=== PATIENT | male | born 1950 | race Caucasian/White ===

== ENCOUNTER 2019-01-28 05:24 | Emergency (ER) | payer OTHER ==
[2019-01-28] MEDS ORDERED: IPRATROPIUM BROM 0.5MG/2.5ML ONE (05:47)
[2019-01-28] MEDS ORDERED: ALBUTEROL 2.5 MG/3 ML NEB SOL ONE (05:47)
--- NOTE | 2019-01-28 06:37 | ER ---
Nurse's Notes [facility] Name: Job Branch Jr Age: 68 yrs Sex: Male : 1950 Arrival Date: 01/28/2019 Time: 05:26 Bed 20 Private MD: Diagnosis: Acute bronchitis Presentation: 01/28 05:34 Presenting complaint: Patient states: he has been having a worsening cough with bb congestion for the last 2 days he has tried OTC medications with no relief he also has a neb machine with albuterol and he used it last at 0200 but it is not lasting. Transition of care: patient was not received from another setting of care. Onset of symptoms was January 26, 2019. Risk Assessment: Do you want to hurt yourself or someone else? Patient reports no desire to harm self or others. Initial Sepsis Screen: Does the patient meet any 2 criteria? No. Patient's initial sepsis screen is negative. Does the patient have a suspected source of infection? No. Patient's initial sepsis screen is negative. Care prior to arrival: None. 05:34 Method Of Arrival: Ambulatory bb 05:34 Acuity: SOLANGE 3 bb Triage Assessment: 05:28 General: Appears in no apparent distress. uncomfortable, Behavior is calm, cooperative, cc3 appropriate for age, agitated. Historical: - Allergies: 05:36 Tequins; bb - Home Meds: 05:36 Diovan Oral [Active]; bb - PMHx: 05:36 Hypertension; bb - PSHx: 05:36 Hernia repair; Appendectomy; bb - Immunization history:: Adult Immunizations up to date, Flu vaccine is not up to date. - Social history:: Smoking status: Patient/guardian denies using tobacco. - Ebola Screening: : No symptoms or risks identified at this time. Screenin:28 Abuse screen: Denies threats or abuse. Denies injuries from another. Nutritional cc3 screening: No deficits noted. Tuberculosis screening: No symptoms or risk factors identified. Fall Risk Ambulatory Aid- None/Bed Rest/Nurse Assist (0 pts). Gait- Mental Status- Oriented to own ability (0 pts). Assessment: 05:28 Pain: Denies pain. Neuro: Level of Consciousness is awake, alert, obeys commands, cc3 Oriented to person, place, time, situation, Appropriate for age none Cardiovascular: Heart tones S1 S2 present Capillary refill < 3 seconds Patient's skin is warm and dry. Respiratory: Airway via oral airway Respiratory effort is even, unlabored, Respiratory pattern is regular, symmetrical, Breath sounds with wheezes bilaterally. GI: Abdomen is round non-distended, obese. : Parent/caregiver report the patient having. EENT: No signs and/or symptoms were reported regarding the EENT system. Derm: No signs and/or symptoms reported regarding the dermatologic system. 06:24 Reassessment: Patient appears in no apparent distress at this time. Patient and/or cc3 family updated on plan of care and expected duration. Pain level reassessed. Patient is alert, oriented x 3, equal unlabored respirations, skin warm/dry/pink. 06:45 Reassessment: Patient appears in no apparent distress at this time. Patient and/or cc3 family updated on plan of care and expected duration. Pain level reassessed. Patient is alert, oriented x 3, equal unlabored respirations, skin warm/dry/pink. Dr. Khan discharged the patient home with prescriptions given. Patient denies pain at this time. Patient states feeling better. Patient states symptoms have improved. Vital Signs: 05:36 BP 122 / 101; Pulse 84; Resp 20 S; Temp 98(O); Pulse Ox 100% on R/A; Weight 136.53 kg bb (R); Height 5 ft. 11 in. (180.34 cm) (R); Pain 0/10; 06:26 BP 127 / 71; Pulse 88; Resp 20 S; Pulse Ox 95% on R/A; Pain 0/10; cc3 05:36 Body Mass Index 41.98 (136.53 kg, 180.34 cm) ED Course: 03:10 Patient has correct armband on for positive identification. Placed in gown. Bed in low cc3 position. Call light in reach. Side rails up X2. 05:26 Patient arrived in ED. cl3 05:28 Sarah Beth Robb is Primary Nurse. cc3 05:35 Triage completed. bb 05:36 Arm band placed on Patient placed in an exam room, on a stretcher, on pulse oximetry. bb Family accompanied patient. 05:37 Chano Khan MD is Attending Physician. tw4 05:59 CXR XRAY In Process Unspecified. EDMS 06:45 No provider procedures requiring assistance completed. Patient did not have IV access cc3 during this emergency room visit. Administered Medications: 05:50 Drug: DuoNeb (3:1) (2.5 mg - 0.5 mg) 3 ml Route: Nebulizer; cc3 06:30 Follow up: Response: No adverse reaction; Marked relief of symptoms cc3 Outcome: 06:36 Discharge ordered by . krista 06:45 Discharged to home ambulatory, with family. cc3 06:45 Condition: stable 06:45 Discharge instructions given to patient, family, Instructed on discharge instructions, follow up and referral plans. medication usage, Demonstrated understanding of instructions, follow-up care, medications, Prescriptions given X 4. 06:46 Patient left the ED. cc3 Signatures: Dispatcher [employer] EDMS Magalis Stone, RN RN Chano Nichols MD MD tw4 Sarah Beth Robb cc3 Jacob Oscar cl3 Corrections: (The following items were deleted from the chart) 05:37 05:34 Presenting complaint: Patient states: he has been having a worsening cough for bb the last 2 days he has tried OTC medications with no relief he also has a neb machine with albuterol and he used it last at 0200 but it is not lasting bb 06:24 05:28 GI: Abdomen is round non-distended, cc3 cc3 06:33 05:28 Respiratory: Airway via oral airway Respiratory effort is even, unlabored, cc3 Respiratory pattern is regular, symmetrical, cc3
--- NOTE | 2019-01-28 06:38 | EDPHYS ---
Physician Documentation [facility] Name: Job Branch Jr Age: 68 yrs Sex: Male : 1950 Arrival Date: 01/28/2019 Time: 05:26 Bed 20 Private MD: ED Physician Chano Khan HPI: 01/28 05:56 This 68 yrs old Male presents to ER via Ambulatory with complaints of tw4 Possible Bronchitits. 05:56 The patient or guardian reports cough, that is constant. Onset: The symptoms/episode tw4 began/occurred 2 day(s) ago. Severity of symptoms: At their worst the symptoms were moderate, in the emergency department the symptoms are unchanged. Modifying factors: The symptoms are alleviated by nebulizer treatment, OTC cold preparation, the symptoms are aggravated by nothing. The patient has experienced similar episodes in the past, a few times. Historical: - Allergies: 05:36 Tequins; bb - Home Meds: 05:36 Diovan Oral [Active]; bb - PMHx: 05:36 Hypertension; bb - PSHx: 05:36 Hernia repair; Appendectomy; bb - Immunization history:: Adult Immunizations up to date, Flu vaccine is not up to date. - Social history:: Smoking status: Patient/guardian denies using tobacco. - Ebola Screening: : No symptoms or risks identified at this time. ROS: 05:56 Constitutional: Negative for fever, chills, and weight loss, Eyes: Negative for injury, tw4 pain, redness, and discharge. 05:56 Cardiovascular: Negative for chest pain, palpitations, and edema, Abdomen/GI: Negative for abdominal pain, nausea, vomiting, diarrhea, and constipation, Back: Negative for injury and pain, MS/Extremity: Negative for injury and deformity, Skin: Negative for injury, rash, and discoloration, Neuro: Negative for headache, weakness, numbness, tingling, and seizure. 05:56 Respiratory: Positive for cough, shortness of breath, wheezing, Negative for dyspnea on exertion, hemoptysis, orthopnea, pleurisy. Exam: 05:56 Constitutional: This is a well developed, well nourished patient who is awake, alert, tw4 and in no acute distress. Head/Face: Normocephalic, atraumatic. Chest/axilla: Normal chest wall appearance and motion. Nontender with no deformity. No lesions are appreciated. Cardiovascular: Regular rate and rhythm with a normal S1 and S2. No gallops, murmurs, or rubs. Normal PMI, no JVD. No pulse deficits. 05:56 Skin: Warm, dry with normal turgor. Normal color with no rashes, no lesions, and no evidence of cellulitis. MS/ Extremity: Pulses equal, no cyanosis. Neurovascular intact. Full, normal range of motion. Neuro: Awake and alert, GCS 15, oriented to person, place, time, and situation. Cranial nerves II-XII grossly intact. Motor strength 5/5 in all extremities. Sensory grossly intact. Cerebellar exam normal. Normal gait. 05:56 Respiratory: the patient does not display signs of respiratory distress, Respirations: normal, Breath sounds: wheezing: expiratory that is mild, is scattered. Vital Signs: 05:36 BP 122 / 101; Pulse 84; Resp 20 S; Temp 98(O); Pulse Ox 100% on R/A; Weight 136.53 kg bb (R); Height 5 ft. 11 in. (180.34 cm) (R); Pain 0/10; 06:26 BP 127 / 71; Pulse 88; Resp 20 S; Pulse Ox 95% on R/A; Pain 0/10; cc3 05:36 Body Mass Index 41.98 (136.53 kg, 180.34 cm) bb MDM: 05:37 Patient medically screened. 01/28 05:38 Order name: Flu 01/28 05:38 Order name: CXR XRAY Administered Medications: 05:50 Drug: DuoNeb (3:1) (2.5 mg - 0.5 mg) 3 ml Route: Nebulizer; cc3 06:30 Follow up: Response: No adverse reaction; Marked relief of symptoms cc3 Disposition: 01/28/19 06:36 Discharged to Home. Impression: Acute bronchitis. - Condition is Stable. - Discharge Instructions: Acute Bronchitis, Adult. - Prescriptions for Tessalon Perles 100 mg Oral Capsule - take 1 capsule by ORAL route every 8 hours As needed; 15 capsule. Albuterol Sulfate 2.5 mg /3 mL (0.083 %) Inhalation Solution for Nebulization - inhale 1 unit by NEBULIZATION route every 8 hours As needed; 1 box. Zithromax Z- Juan C 250 mg Oral Tablet - take 1 tablet by ORAL route as directed for 5 days Day 1 - take two (2) tablets one time. Day 2, 3, 4 , 5 take one (1) tablet once daily.; 6 tablet. Guaifenesin AC 10- 100 mg/5 mL Oral Liquid - take 10 milliliter by ORAL route every 4 hours As needed; 240 milliliter. - Medication Reconciliation Form, Thank You Letter, Antibiotic Education, Prescription Opioid Use form. - Follow up: Private Physician; When: Upon discharge from the Emergency Department; Reason: Recheck today's complaints, Continuance of care. - Problem is new. - Symptoms have improved. Signatures: Dispatcher [employer] Magalis Perkins RN RN Chano Nichols MD MD tw4 Sarah Beth Robb cc3 Corrections: (The following items were deleted from the chart) 06:46 06:36 01/28/2019 06:36 Discharged to Home. Impression: Acute bronchitis. Condition is cc3 Stable. Forms are Medication Reconciliation Form, Thank You Letter, Antibiotic Education, Prescription Opioid Use. Follow up: Private Physician; When: Upon discharge from the Emergency Department; Reason: Recheck today's complaints, Continuance of care. Problem is new. Symptoms have improved. tw4
[2019-01-28 07:33] VITALS: TEMP 98
[2019-01-28 07:36] VITALS: BP 127/71; O2SAT 95
--- NOTE | 2019-01-28 07:37 | RAD REPORT ---
EXAM DESCRIPTION: Jana Single View01/28/2019 5:59 am CLINICAL HISTORY: cough COMPARISON: 2014 FINDINGS: The lungs appear clear of acute infiltrate. The heart is mildly enlarged IMPRESSION: No acute abnormalities displayed
== END 2019-01-28 06:46 | disposition home or self-care (01) ==
LOC: ER 05:24
DX: J20.9 Acute bronchitis, unspecified (principal); I10 Essential (primary) hypertension; Z88.8 Allergy status to other drugs, medicaments and biological substances
CPT/HCPCS: 71045; 87804; 94640; 99284

== ENCOUNTER 2019-02-04 07:47 | Inpatient (IN) | payer OTHER ==
[2019-02-04] MEDS ORDERED: METHYLPREDNISOLONE 125 MG INJ ONE (08:15)
[2019-02-04] MEDS ORDERED: ALBUTEROL 2.5 MG/3 ML NEB SOL ONE (08:16)
[2019-02-04] MEDS ORDERED: IPRATROPIUM BROM 0.5MG/2.5ML ONE (08:16)
[2019-02-04 09:02] LABS: Absolute Lymphocytes (CBC) 1.5 K/uL (0.7-4.9); Basophils % 0.5 % (0-1.3); Hematocrit 40.1 % (39.6-49.0); Lymphocytes % 17.9 % (15.3-44.8); MPV 10.4 fL (7.6-11.3); RBC Red Blood Cell Count 4.21 M/uL (4.33-5.43)
[2019-02-04 09:03] LABS: Protime INR 1.27
--- NOTE | 2019-02-04 09:05 | RAD REPORT ---
EXAM DESCRIPTION: RAD - Chest Single View - 02/04/2019 8:46 am CLINICAL HISTORY: Cough, dyspnea, recent bronchitis diagnosis COMPARISON: January 28, 2019 TECHNIQUE: AP portable chest image was obtained 0832 hours . FINDINGS: No peripheral mass or consolidation. Interstitial pattern is not significantly different c omparison. Heart size is enlarged but unchanged. No acute vascular engorgement. Acute failure or volu me overload not suspected. No measurable pleural effusion and no pneumothorax. No acute bony abnormal ity seen. No acute aortic findings suspected. IMPRESSION: No acute lung parenchymal process. No significant failure or volume overload. Patient has a baseline interstitial pattern that potentially mask very earliest stages of interstitia l edema or infiltrate. Prominent cardiac silhouette similar to comparison.
[2019-02-04 10:04] LABS: ALT/SGPT 35 U/L (12-78); AST/SGOT 22 U/L (15-37); Albumin 3.5 g/dL (3.4-5.0); Alkaline Phosphatase 65 U/L (45-117); BUN Blood Urea Nitrogen 19 mg/dL (7-18); Bicarbonate 28 mmol/L (21-32); Bilirubin Direct 0.2 mg/dL (0-0.2); Bilirubin Total 0.7 mg/dL (0.2-1.0); Glucose Level 99 mg/dL (74-106); Magnesium 2.2 mg/dL (1.8-2.4); NT PRO-BNP 86 pg/mL (<125); Potassium 3.7 mmol/L (3.5-5.1); Protein, Total 7.4 g/dL (6.4-8.2); Sodium Level 144 mmol/L (136-145); Troponin (Emerg Dept Use Only) < 0.02 ng/mL (0.0-0.045)
--- NOTE | 2019-02-04 10:24 | ER ---
Nurse's Notes [facility] Name: Job Branch Jr Age: 68 yrs Sex: Male : 1950 Arrival Date: 02/04/2019 Time: 07:50 Bed 6 Private MD: Jens Robbins T Diagnosis: Acute bronchitis;Acute respiratory failure with hypoxia Presentation: 02/04 08:02 Presenting complaint: Patient states: "I was here for bronchitis on . The ss medications I was given helped, but now it's back." Pt's only complaint at this time is a hacking cough. Transition of care: patient was not received from another setting of care. Onset of symptoms was February 04, 2019. Risk Assessment: Do you want to hurt yourself or someone else? Patient reports no desire to harm self or others. Initial Sepsis Screen: Does the patient meet any 2 criteria? RR > 20 per min. Does the patient have a suspected source of infection? No. Patient's initial sepsis screen is negative. Care prior to arrival: None. 08:02 Method Of Arrival: Ambulatory ss 08:02 Acuity: SOLANGE 3 ss Historical: - Allergies: 08:00 Tequins; ph - Home Meds: 08:00 Diovan Oral [Active]; ph - PMHx: 08:00 Hypertension; ph - PSHx: 08:00 Hernia repair; Appendectomy; ph - Immunization history:: Adult Immunizations up to date. - Social history:: Smoking status: Patient/guardian denies using tobacco. - Ebola Screening: : No symptoms or risks identified at this time. Screenin:00 Abuse screen: Denies threats or abuse. Denies injuries from another. Nutritional ph screening: No deficits noted. Tuberculosis screening: No symptoms or risk factors identified. 08:28 Fall Risk None identified. ph Assessment: 08:26 General: Appears in no apparent distress. uncomfortable, obese, well groomed, Behavior ph is cooperative, appropriate for age, anxious, Denies fever. Pain: Denies pain. Neuro: Level of Consciousness is awake, alert, obeys commands, Oriented to person, place, time, situation. Cardiovascular: Capillary refill < 3 seconds in bilateral fingers Patient's skin is warm and dry. Respiratory: Reports shortness of breath at rest on exertion cough that is non-productive, persistent Airway is patent Respiratory effort is even, labored, Respiratory pattern is tachypnea Breath sounds are coarse in mediastinum. GI: Patient currently denies abdominal pain, diarrhea, nausea, vomiting. Derm: Skin is intact, Skin is pink, warm \\T\\ dry. Musculoskeletal: Circulation, motion, and sensation intact. Range of motion: intact in all extremities. 08:49 Reassessment: Patient appears in no apparent distress at this time. Patient and/or ph family updated on plan of care and expected duration. Pain level reassessed. Pt reports that SOB has improved "some:" after neb tx, noted to be expectorating mucus and respiratory rate also noted to have decreased, recollect sent to lab, awaiting lab and radiology results, SO at bedside. 10:05 Reassessment: Patient appears in no apparent distress at this time. Patient and/or ph family updated on plan of care and expected duration. Pain level reassessed. Patient is alert, oriented x 3, equal unlabored respirations, skin warm/dry/pink. Spo2 noted to intermittently decrease to 87% while pt resting in bed with eyes closed, improves to approx 95% when pt speak or moves, pt reports no overall improvement in symptoms, ERP notified. 11:00 Reassessment: Patient appears in no apparent distress at this time. No changes from ph previously documented assessment. Patient and/or family updated on plan of care and expected duration. Pain level reassessed. Patient is alert, oriented x 3, equal unlabored respirations, skin warm/dry/pink. 12:30 Reassessment: Patient appears in no apparent distress at this time. Patient and/or ph family updated on plan of care and expected duration. Pain level reassessed. Patient is alert, oriented x 3, equal unlabored respirations, skin warm/dry/pink. Pt resting comfortably, awaiting admit orders and room assignment. 13:30 Reassessment: Patient appears in no apparent distress at this time. No changes from ph previously documented assessment. Patient and/or family updated on plan of care and expected duration. Pain level reassessed. Patient is alert, oriented x 3, equal unlabored respirations, skin warm/dry/pink. 14:45 Reassessment: Patient appears in no apparent distress at this time. Patient and/or ph family updated on plan of care and expected duration. Pain level reassessed. Patient is alert, oriented x 3, equal unlabored respirations, skin warm/dry/pink. Hospitalist at bedside to see pt, awaiting room assignment. Vital Signs: 08:02 BP 124 / 67; Pulse 76; Resp 23; Temp 97.6(O); Pulse Ox 100% on R/A; Weight 136.98 kg; ss Height 5 ft. 11 in. (180.34 cm); Pain 0/10; 09:00 BP 111 / 66; Pulse 71; Resp 22; Pulse Ox 95% on R/A; ph 10:03 BP 109 / 68; Pulse 76; Resp 20; Pulse Ox 97% on R/A; ph 10:47 BP 121 / 65; Pulse 71; Resp 18; Pulse Ox 96% on R/A; ph 11:22 BP 116 / 73; Pulse 68; Resp 18; Pulse Ox 93% on R/A; ph 12:30 BP 118 / 72; Pulse 71; Resp 18; Pulse Ox 95% on 2 lpm NC; ph 13:30 BP 112 / 76; Pulse 81; Resp 20; Pulse Ox 97% on 2 lpm NC; ph 14:48 BP 110 / 69; Pulse 71; Resp 18; Temp 97.6; Pulse Ox 98% on 2 lpm NC; ph 08:02 Body Mass Index 42.12 (136.98 kg, 180.34 cm) ED Course: 07:50 Patient arrived in ED. as 07:50 Jens Robbins MD is Private Physician. as 07:57 [facility] jr8 07:57 Christiano Purcell MD is Attending Physician. jr8 07:59 Masha Stevenson, GRACIE is Primary Nurse. ph 08:00 Arm band placed on Patient placed in an exam room, on a stretcher, on pulse oximetry. ph 08:03 Triage completed. ss 08:20 Initial lab(s) drawn, by me, sent to lab. Inserted saline lock: 20 gauge in right hand, dh3 using aseptic technique. Blood collected. 08:28 Patient has correct armband on for positive identification. Placed in gown. Bed in low ph position. Call light in reach. Side rails up X 1. Pulse ox on. NIBP on. Door closed. Noise minimized. Warm blanket given. Head of bed elevated. 08:35 XRAY Chest (1 view) In Process Unspecified. EDMS 09:47 EKG done, by central office technician. reviewed by Luis SHEFFIELD. at1 10:22 Cem Garcia MD is Hospitalizing Provider. jr8 15:50 No provider procedures requiring assistance completed. Patient admitted, IV remains in ph place. Administered Medications: 08:23 Drug: SOLU-Medrol 125 mg Route: IVP; Site: right hand; ph 08:24 Drug: Albuterol - atroVENT (3:1) (2.5 mg - 0.5 mg) 3 ml Route: Nebulizer; ph Outcome: 10:22 Decision to Hospitalize by Provider. jr8 15:58 Patient left the ED. ph 15:58 Admitted to Med/surg accompanied by tech, family with patient, via wheelchair, with ph oxygen, with chart. 15:58 Condition: good 15:58 Instructed on the need for admit. Signatures: Dispatcher [employer] EDMS Gayle Carrillo Shelby, RN RN Luis Moya PA PA jr8 Margaret Boone, warehouse administrator EKG Tat1 Masha Stevenson RN RN Jag, Beverley 3 Corrections: (The following items were deleted from the chart) 10:47 10:05 Reassessment: Patient appears in no apparent distress at this time. Patient ph and/or family updated on plan of care and expected duration. Pain level reassessed. Patient is alert, oriented x 3, equal unlabored respirations, skin warm/dry/pink. ph
--- NOTE | 2019-02-04 10:25 | EDPHYS ---
Physician Documentation [facility] Name: Job Branch Jr Age: 68 yrs Sex: Male : 1950 Arrival Date: 02/04/2019 Time: 07:50 Bed 6 Private MD: Jens Robbins T ED Physician Christiano Purcell HPI: 02/04 08:56 This 68 yrs old Male presents to ER via Ambulatory with complaints of jr8 Bronchitis. 08:56 The patient has shortness of breath at rest. Onset: The symptoms/episode began/occurred jr8 acutely, 2 day(s) ago. Duration: The symptoms are continuous. The patient's shortness of breath is aggravated by light activity, talking, walking. Associated signs and symptoms: The patient has no apparent associated signs or symptoms. Severity of symptoms: At their worst the symptoms were moderate in the emergency department the symptoms are unchanged. It is unknown whether or not the patient has had similar symptoms in the past. The patient has been recently seen by a physician:. Saw physician about 1 week ago for cough. Diagnosed with bronchitis and was put on zithromax. Stated that he had only mild improvement. Two days ago started to feel much worse . Historical: - Allergies: 08:00 Tequins; ph - Home Meds: 08:00 Diovan Oral [Active]; ph - PMHx: 08:00 Hypertension; ph - PSHx: 08:00 Hernia repair; Appendectomy; ph - Immunization history:: Adult Immunizations up to date. - Social history:: Smoking status: Patient/guardian denies using tobacco. - Ebola Screening: : No symptoms or risks identified at this time. ROS: 08:56 Eyes: Negative for injury, pain, redness, and discharge, ENT: Negative for injury, jr8 pain, and discharge, Neck: Negative for injury, pain, and swelling, Cardiovascular: Negative for chest pain, palpitations, and edema, Abdomen/GI: Negative for abdominal pain, nausea, vomiting, diarrhea, and constipation, Back: Negative for injury and pain, MS/Extremity: Negative for injury and deformity, Skin: Negative for injury, rash, and discoloration, Neuro: Negative for headache, weakness, numbness, tingling, and seizure. 08:56 Respiratory: Positive for cough, dyspnea on exertion, shortness of breath, wheezing. Exam: 08:56 Eyes: Pupils equal round and reactive to light, extra-ocular motions intact. Lids and jr8 lashes normal. Conjunctiva and sclera are non-icteric and not injected. Cornea within normal limits. Periorbital areas with no swelling, redness, or edema. ENT: Nares patent. No nasal discharge, no septal abnormalities noted. Tympanic membranes are normal and external auditory canals are clear. Oropharynx with no redness, swelling, or masses, exudates, or evidence of obstruction, uvula midline. Mucous membranes moist. Neck: Trachea midline, no thyromegaly or masses palpated, and no cervical lymphadenopathy. Supple, full range of motion without nuchal rigidity, or vertebral point tenderness. No Meningismus. Cardiovascular: Regular rate and rhythm with a normal S1 and S2. No gallops, murmurs, or rubs. Normal PMI, no JVD. No pulse deficits. Abdomen/GI: Soft, non-tender, with normal bowel sounds. No distension or tympany. No guarding or rebound. No evidence of tenderness throughout. Back: No spinal tenderness. No costovertebral tenderness. Full range of motion. Skin: Warm, dry with normal turgor. Normal color with no rashes, no lesions, and no evidence of cellulitis. MS/ Extremity: Pulses equal, no cyanosis. Neurovascular intact. Full, normal range of motion. Neuro: Awake and alert, GCS 15, oriented to person, place, time, and situation. Cranial nerves II-XII grossly intact. Motor strength 5/5 in all extremities. Sensory grossly intact. Cerebellar exam normal. Normal gait. 08:56 Respiratory: mild respiratory distress is noted, Respirations: tachypnea, Breath sounds: bronchial sounds, that are mild, are heard diffusely. Vital Signs: 08:02 BP 124 / 67; Pulse 76; Resp 23; Temp 97.6(O); Pulse Ox 100% on R/A; Weight 136.98 kg; ss Height 5 ft. 11 in. (180.34 cm); Pain 0/10; 09:00 BP 111 / 66; Pulse 71; Resp 22; Pulse Ox 95% on R/A; ph 10:03 BP 109 / 68; Pulse 76; Resp 20; Pulse Ox 97% on R/A; ph 10:47 BP 121 / 65; Pulse 71; Resp 18; Pulse Ox 96% on R/A; ph 11:22 BP 116 / 73; Pulse 68; Resp 18; Pulse Ox 93% on R/A; ph 12:30 BP 118 / 72; Pulse 71; Resp 18; Pulse Ox 95% on 2 lpm NC; ph 13:30 BP 112 / 76; Pulse 81; Resp 20; Pulse Ox 97% on 2 lpm NC; ph 14:48 BP 110 / 69; Pulse 71; Resp 18; Temp 97.6; Pulse Ox 98% on 2 lpm NC; ph 08:02 Body Mass Index 42.12 (136.98 kg, 180.34 cm) ss MDM: 07:57 Patient medically screened. [facility] 10:16 Data reviewed: vital signs, nurses notes, lab test result(s), EKG, radiologic studies, jr8 plain films. Data interpreted: Pulse oximetry: on room air is 93 %. Interpretation: normal. Counseling: I had a detailed discussion with the patient and/or guardian regarding: the historical points, exam findings, and any diagnostic results supporting the discharge/admit diagnosis, lab results, radiology results, the need for further work-up and treatment in the hospital. ED course: Although patient has improved. He continues to have dyspnea and lower than expected SPO2 levels. Will admit for obs. 02/04 08:10 Order name: Basic Metabolic Panel; Complete Time: 10:16 02/04 08:10 Order name: CBC with Diff 02/04 08:10 Order name: LFT's; Complete Time: 10:16 02/04 08:10 Order name: Magnesium; Complete Time: 10:16 02/04 08:10 Order name: NT PRO-BNP; Complete Time: 10:16 02/04 08:10 Order name: PT-INR; Complete Time: 09:14 02/04 08:10 Order name: Troponin (emerg Dept Use Only); Complete Time: 10:16 02/04 08:10 Order name: XRAY Chest (1 view); Complete Time: 09:14 02/04 08:10 Order name: EKG; Complete Time: 08:11 02/04 08:10 Order name: Cardiac monitoring; Complete Time: 08:12 02/04 08:10 Order name: EKG - Nurse/Tech; Complete Time: 08:8 02/04 08:10 Order name: IV Saline Lock; Complete Time: 02/04 08:10 Order name: Labs collected and sent; Complete Time: 02/04 08:10 Order name: O2 Per Protocol; Complete Time: 08:02/04 08:10 Order name: O2 Sat Monitoring; Complete Time: : Administered Medications: : Drug: SOLU-Medrol 125 mg Route: IVP; Site: right hand; ph 08:24 Drug: Albuterol - atroVENT (3:1) (2.5 mg - 0.5 mg) 3 ml Route: Nebulizer; ph Disposition: 17:22 Co-signature as Attending Physician, Christiano Purcell MD. rn Disposition: 02/04/19 10:22 Hospitalization ordered by Cem Garcia for Observation. Preliminary diagnosis are Acute bronchitis, Acute respiratory failure with hypoxia. - Bed requested for Telemetry/MedSurg (observation). - Status is Observation. ph - Condition is Fair. - Problem is new. - Symptoms have improved. UTI on Admission? No Signatures: Dispatcher [employer] Disha Daily RN RN dw Christiano Purcell MD MD rn Smirch, Shelby, RN RN Luis Moya PA PA jr8 Masha Stevenson RN RN ph Corrections: (The following items were deleted from the chart) 14:30 10:22 Hospitalization Ordered by Cem Garcia MD for Observation. Preliminary dw diagnosis is Acute bronchitis; Acute respiratory failure with hypoxia. Bed requested for Telemetry/MedSurg (observation). Status is Observation. Condition is Fair. Problem is new. Symptoms have improved. UTI on Admission? No. jr8 15:58 14:30 02/04/2019 10:22 Hospitalization Ordered by Cem Garcia MD for Observation. ph Preliminary diagnosis is Acute bronchitis; Acute respiratory failure with hypoxia. Bed requested for Telemetry/MedSurg (observation). Status is Observation. Condition is Fair. Problem is new. Symptoms have improved. UTI on Admission? No. dw
[2019-02-04] MEDS ORDERED: ONDANSETRON 4 MG/2 ML VIAL IV PRN (14:58)
[2019-02-04] MEDS ORDERED: ACETAMINOPHEN 500 MG TAB PO PRN (14:58)
[2019-02-04] MEDS: NA CHLORIDE 0.9% 1,000 ML IV SCH (15:28)
[2019-02-04] MEDS: ENOXAPARIN 40 MG/0.4 ML SQ SCH (15:35)
[2019-02-04 15:50] VITALS: BMI 42.0
[2019-02-04] MEDS ORDERED: POTASSIUM CL SA 10 MEQ TAB PO ONE (16:00)
[2019-02-04] MEDS: CEFTRIAXONE/SWI 1gm 1 GM/10 ML SYR IVP SCH (16:24)
[2019-02-04] MEDS: METHYLPREDNISOLONE 40 MG INJ IV SCH (16:24)
--- NOTE | 2019-02-04 16:46 | P.HP ---
Certification for Inpatient Patient admitted to: Observation With expected LOS: <2 Midnights Practitioner: I am a practitioner with admitting privileges, knowledge of patient current condition, hospital course, and medical plan of care. Services: Services provided to patient in accordance with Admission requirements found in Title 42 Section 412.3 of the Code of Federal Regulations Patient History Date of Service: 02/04/19 Reason for admission: Cough and shortness of breath History of Present Illness: 5-year-old man with a history of hypertension presented to the ED with a complaint of progressive shortness and nonproductive cough. Patient was in the ED on for similar symptoms. He was diagnosed with acute bronchitis and discharged with Zithromax, albuterol nebulizers and Benzonatate. He stated his symptoms improve slightly but later got worse. He presented to the ED today where patient was noted to be wheezing and tachypneic. He partially improved with breathing treatment given in the ED. Patient noted to be afebrile. No leukocytosis. Chest x-ray demonstrated no acute changes. It did report chronic interstitial changes. Patient is hospitalized for treatment of acute bronchitis which has failed outpatient treatment. Allergies gatifloxacin [From Tequin] Allergy (Intermediate, Verified 02/04/19 15:38) ANXIETY Home Medications: Valsartan [Diovan] 320 mg PO DAILY 09/30/11 - Past Medical/Surgical History Has patient received pneumonia vaccine in the past: Yes Diabetic: No -: HTN -: Acid reflux -: headaches -: anxiety -: depression -: hernia repair -: cyst on tail bone removed -: rt shoulder sx -: appy - Family History Father -: Cancer Notes: skin cancer on face, triple bypass with valve replacement Mother Notes: 94 no health issues aside from alzheimers - Social History Smoking Status: Never smoker Alcohol use: Yes CD- Drugs: No Caffeine use: No Review of Systems Other: General: No fever, no malaise, no unintentional weight loss. Eyes: No eye discharge, CVS: No chest pain, no palpitation, no lightheadedness. GI: No abdominal pain, no nausea no vomit, no constipation, no diarrhea. Genitourinary: No dysuria, no urinary frequency, no incontinence, no hematuria. Musculoskeletal: No joint pains, or joint swelling, no gait instability. Neurology: No headache, no asymmetric, weakness, no problem with swallowing. Except as documented, all other systems reviewed and negative. Physical Examination - Vital Signs Temperature: 97.6 F Blood Pressure: 110/69 Pulse: 71 Respirations: 18 - Physical Exam General: Alert, In no apparent distress, Oriented x3 HEENT: Normocephalic, PERRLA, Mucous membr. moist/pink, Sclerae nonicteric Neck: Supple, JVD not distended Respiratory: Clear to auscultation bilaterally, Normal air movement Cardiovascular: No edema, Regular rate/rhythm, Normal S1 S2 Capillary refill: <2 Seconds Gastrointestinal: Normal bowel sounds, Hypoactive, Soft and benign, Non- distended, No tenderness Musculoskeletal: No swelling, No erythema Integumentary: No rashes Neurological: Normal speech, Normal strength at 5/5 x4 extr - Studies Laboratory Data (last 24 hrs) 02/04/19 09:23: Sodium 144, Potassium 3.7, BUN 19 H, Creatinine 1.17, Glucose 99 , Magnesium 2.2, Total Bilirubin 0.7, AST 22, ALT 35, Alkaline Phosphatase 65 02/04/19 08:45: PT 14.8 H, INR 1.27 02/04/19 08:45: WBC 8.1, Hgb 13.2 L, Hct 40.1, Plt Count 134 L Assessment and Plan - Problems (Diagnosis) (1) Acute bronchiolitis due to other infectious organisms Current Visit: Yes Status: Acute (2) Essential hypertension Current Visit: Yes Status: Chronic (3) GERD (gastroesophageal reflux disease) Current Visit: Yes Status: Chronic - Plan Place patient under observation Start IV Rocephin and IV doxycycline. Noted his symptoms did not respond to oral Zithromax. IV Solu-Medrol Scheduled bronchodilators Oxygen as needed Continue home dose PPI Continue home antihypertensives. - Advance Directives Does patient have a Living Will: No Does patient have a Durable POA for Healthcare: No
[2019-02-04] MEDS ORDERED: INFLUENZA VACCINE (for 3y+) 0.5 ML DOSE IMVAC ONE (17:00)
[2019-02-04 18:57] LABS: Urine Appearance CLOUDY; Urine Bilirubin NEGATIVE (NEG); Urine Blood NEGATIVE (NEG); Urine Color YELLOW; Urine Glucose NEGATIVE (NEG); Urine Protein NEGATIVE (NEG); Urine Specific Gravity >=1.030 (1.005-1.030); Urine Urobilinogen 0.2 mg/dL (0.2-1.0); Urine pH 5.5 (5.0-7.0)
[2019-02-04 19:11] LABS: Urine Microscopic Reflex ORDER UMIC
[2019-02-04] MEDS: IPRATROPIUM BROM 0.5MG/2.5ML NEB SCH (20:00)
[2019-02-04] MEDS ORDERED: ALBUTEROL 2.5 MG/3 ML NEB SOL NEB SCH (20:00)
[2019-02-04] MEDS: ALBUTEROL 2.5 MG/3 ML NEB SOL NEB SCH (20:00)
[2019-02-04] MEDS: DOXYCYCLINE 100 MG in NA CHLORIDE 0.9% 100 ML IVPB SCH (20:07)
[2019-02-04 20:47] LABS: Urine Amorphous Sediment 3+ /HPF (NONE SEEN); Urine Bacteria <20 /HPF (NONE SEEN); Urine Culture Reflex Order NOT NEEDED; Urine Mucus 3+ /HPF (NONE SEEN); Urine RBC <5 /HPF (NONE SEEN)
[2019-02-04] MEDS: BENZONATATE 100 MG CAP PO PRN (22:08)
--- NOTE | 2019-02-04 22:57 | EKG ---
Test Date: 2019-02-04 Test Time: 08:28:22 Watch Engineer: JHONY MEASUREMENT RESULTS: Intervals: Rate: 71 VA: 168 QRSD: 92 QT: 406 QTc: 441 [place]: P: 38 VA: 168 QRS: 31 T: 39 INTERPRETIVE STATEMENTS: Normal sinus rhythm Normal ECG Compared to ECG 02/05/2015 09:32:21 Sinus bradycardia no longer present Electronically Signed On 02-04-19 22:55:42 [employer]BBLER SOLE by Raul Russell
[2019-02-05] MEDS: METHYLPREDNISOLONE 40 MG INJ IV SCH ×3 (00:31→16:24)
[2019-02-05] MEDS: IPRATROPIUM BROM 0.5MG/2.5ML NEB SCH ×2 (01:25→08:10)
[2019-02-05] MEDS: ALBUTEROL 2.5 MG/3 ML NEB SOL NEB SCH ×2 (01:25→08:10)
[2019-02-05] MEDS: PANTOPRAZOLE 40MG TABLET PO SCH ×3 (01:43→16:24)
[2019-02-05 05:57] LABS: Absolute Lymphocytes (CBC) 0.4 K/uL (0.7-4.9); Basophils % 0.2 % (0-1.3); Hematocrit 36.8 % (39.6-49.0); Lymphocytes % 3.6 % (15.3-44.8)
[2019-02-05 06:02] LABS: Magnesium 2.2 mg/dL (1.8-2.4); Phosphorus 2.7 mg/dL (2.5-4.9)
[2019-02-05] MEDS: NA CHLORIDE 0.9% 1,000 ML IV SCH ×2 (07:12→17:40)
[2019-02-05] MEDS: BENZONATATE 100 MG CAP PO PRN ×3 (08:20→21:26)
[2019-02-05] MEDS: CEFTRIAXONE/SWI 1gm 1 GM/10 ML SYR IVP SCH (08:20)
[2019-02-05] MEDS: ENOXAPARIN 40 MG/0.4 ML SQ SCH (08:21)
[2019-02-05] MEDS: DOXYCYCLINE 100 MG in NA CHLORIDE 0.9% 100 ML IVPB SCH (08:21)
[2019-02-05 09:28] LABS: Blood Morphology Comment NOT SEEN (NOT SEEN); Platelet Estimate ADEQ; Urine White Blood Cell Casts OK
[2019-02-05] MEDS ORDERED: IPRATROPIUM BROM 0.5MG/2.5ML NEB PRN (10:33)
[2019-02-05] MEDS ORDERED: ALBUTEROL 2.5 MG/3 ML NEB SOL NEB PRN (10:33)
[2019-02-05] MEDS ORDERED: CETIRIZINE HCL 5 MG TABLET PO PRN (16:57)
--- NOTE | 2019-02-05 17:03 | P.PN ---
Subjective Date of Service: 02/05/19 Chief Complaint: Cough and shortness of breath Patient reports spells of coughing, shortness of breath and sensation of throat closing up last night when he was getting breathing treatment. He has been afebrile. Reports nonproductive cough persist. He has not been wheezing. Physical Examination - Vital Signs Temperature: 98.1 F Blood Pressure: 112/55 Pulse: 84 Respirations: 20 Pulse Ox (%): 95 - Physical Exam General: Alert, In no apparent distress, Oriented x3 HEENT: Mucous membr. moist/pink Neck: Supple, JVD not distended, Other (No pharyngeal erythema or exudate) Respiratory: Clear to auscultation bilaterally, Normal air movement Cardiovascular: No edema, Regular rate/rhythm, Normal S1 S2 Gastrointestinal: Normal bowel sounds, Soft and benign, No tenderness Musculoskeletal: No swelling Integumentary: No rashes Neurological: Normal speech, Normal strength at 5/5 x4 extr - Studies Laboratory Data (last 24 hrs) 02/04/19 08:45: WBC 8.1, Hgb 13.2 L, Hct 40.1, Plt Count 134 L Assessment And Plan - Current Problems (Diagnosis) (1) Acute bronchiolitis due to other infectious organisms Current Visit: Yes Status: Acute (2) Essential hypertension Current Visit: Yes Status: Chronic (3) GERD (gastroesophageal reflux disease) Current Visit: Yes Status: Chronic - Plan Place patient under observation Continue IV Rocephin. Discontinue IV doxycycline(patient reports burning with the administration). IV Solu-Medrol Bronchodilators p.r.n. Start antihistamine-cetirizine Oxygen as needed Protonix Continue home dose antihypertensives.
[2019-02-06] MEDS: METHYLPREDNISOLONE 40 MG INJ IV SCH ×2 (00:18→10:20)
[2019-02-06] MEDS: NA CHLORIDE 0.9% 1,000 ML IV SCH ×3 (00:18→20:20)
[2019-02-06] MEDS: BENZONATATE 100 MG CAP PO PRN ×3 (03:36→23:03)
[2019-02-06 06:05] LABS: Absolute Lymphocytes (CBC) 0.5 K/uL (0.7-4.9); Basophils % 0.1 % (0-1.3); Hematocrit 36.8 % (39.6-49.0); Lymphocytes % 3.4 % (15.3-44.8); MPV 11.1 fL (7.6-11.3); RBC Red Blood Cell Count 3.87 M/uL (4.33-5.43)
[2019-02-06 06:18] LABS: Potassium 4.3 mmol/L (3.5-5.1)
[2019-02-06 10:04] LABS: Blood Morphology Comment NOT SEEN (NOT SEEN); Platelet Estimate ADEQ; Urine White Blood Cell Casts OK
[2019-02-06] MEDS: PANTOPRAZOLE 40MG TABLET PO SCH ×2 (10:20→17:20)
[2019-02-06] MEDS: ASPIRIN 81 MG CHEWABLE TABLET PO SCH (10:20)
[2019-02-06] MEDS: CEFTRIAXONE/SWI 1gm 1 GM/10 ML SYR IVP SCH (10:20)
[2019-02-06] MEDS: ENOXAPARIN 40 MG/0.4 ML SQ SCH (10:21)
--- NOTE | 2019-02-06 10:24 | RAD REPORT ---
EXAM DESCRIPTION: Jana Single View02/06/2019 10:16 am CLINICAL HISTORY: Chest pain COMPARISON: February 04, 2019 FINDINGS: The lungs appear clear of acute infiltrate. The heart is normal size IMPRESSION: No acute abnormalities displayed
--- NOTE | 2019-02-06 12:40 | P.PN ---
Subjective Date of Service: 02/06/19 Chief Complaint: Cough and shortness of breath Patient complaining of a sensation of swelling in his throat. He also reports spells of coughing last night. He has been afebrile. Physical Examination - Vital Signs Temperature: 98.4 F Blood Pressure: 123/67 Pulse: 73 Respirations: 20 Pulse Ox (%): 96 - Physical Exam General: Alert, In no apparent distress, Oriented x3 HEENT: Other (Bilateral tonsils enlarged, no pharyngeal exudate.) Neck: Supple, JVD not distended Respiratory: Clear to auscultation bilaterally, Normal air movement Cardiovascular: No edema, Regular rate/rhythm, Normal S1 S2 Gastrointestinal: Normal bowel sounds, Soft and benign, Non-distended, No tenderness Musculoskeletal: No swelling Integumentary: No rashes Neurological: Normal speech Assessment And Plan - Current Problems (Diagnosis) (1) Acute bronchiolitis due to other infectious organisms Current Visit: Yes Status: Acute (2) Essential hypertension Current Visit: Yes Status: Chronic (3) GERD (gastroesophageal reflux disease) Current Visit: Yes Status: Chronic - Plan Continue IV Rocephin. Discontinue IV Solu-Medrol. Start oral prednisone 20 mg daily. Bronchodilators p.r.n. Continue cetirizine Oxygen as needed Protonix Continue home dose antihypertensives.
[2019-02-07] MEDS: NA CHLORIDE 0.9% 1,000 ML IV SCH (03:01)
[2019-02-07] MEDS: PANTOPRAZOLE 40MG TABLET PO SCH (07:41)
[2019-02-07] MEDS: ASPIRIN 81 MG CHEWABLE TABLET PO SCH (07:41)
[2019-02-07] MEDS: ENOXAPARIN 40 MG/0.4 ML SQ SCH (07:41)
[2019-02-07] MEDS: CEFTRIAXONE/SWI 1gm 1 GM/10 ML SYR IVP SCH (07:41)
[2019-02-07 07:51] VITALS: BP 165/82; TEMP 97.3; O2SAT 97
[2019-02-07] MEDS ORDERED: GUAIFENESIN 600 MG SA TAB PO SCH (09:00)
[2019-02-07] MEDS ORDERED: predniSONE 20 MG TAB PO SCH (09:00)
--- NOTE | 2019-02-07 09:28 | P.DS ---
Admission Date: 02/05/19 Discharge Date: 02/07/19 Primary Care Provider: Dr. Robbins Disposition: ROUTINE DISCHARGE Discharge Condition: GOOD Reason for Admission: Cough and shortness of breath Consultations: none Procedures: Follow up CXR: COMPARISON: February 04, 2019 FINDINGS: The lungs appear clear of acute infiltrate. The heart is normal size IMPRESSION: No acute abnormalities displayed Medical Problem list: Acute bronchitis, failed outpatient treatment Hypertension GERD Seasonal allergies Obesity, BMI greater than 40 Brief History of Present Illness: 68-year-old male presented to the emergency room with increased cough , shortness of breath. Patient was recently seen in the emergency room and discharge with antibiotics. Patient continue to have increasing cough and congestion. Patient was admitted for further evaluation and treatment. Hospital Course: Patient presented with acute bronchitis failed outpatient therapy. Patient responded to IV antibiotics and steroids. Chest x-ray showed no pneumonia. Patient has done well. Room-air saturations within normal range. Cough improved. At discharge patient will continue with Augmentin 500 mg 1 pill twice daily for 5 days and prednisone 10 mg daily for 3 more days. Patient will also be provided Mucinex 600 mg twice daily for congestion, albuterol 2 puffs 3 times a day as needed for shortness of breath, and Tessalon Perles 100 mg 1 pill 3 times a day as needed for cough. Encourage oral intake, vitamin-C, and continue with incentive spirometer. Recommend follow up with his PCP in 1 week to follow up this hospitalization. Patient may return to work in 5-7 days. Patient with hypertension. Patient will continue with his medication-valsartan 320 mg daily. Patient with history of GERD. At discharge he may continue with over the counter medication like Pepcid as needed. Patient with history of allergic rhinitis. Patient may continue with over-the- counter medication like Zyrtec 10 mg daily and/or Flonase 1 spray per nostril daily. Vital Signs/Physical Exam: Temp Pulse Resp BP Pulse Ox 97.3 F 60 18 165/82 H 97 02/07/19 07:49 02/07/19 07:49 02/07/19 07:49 02/07/19 07:49 02/07/19 07:49 General: Alert, In no apparent distress, Oriented x3, Cooperative HEENT: Atraumatic Neck: Supple Respiratory: Clear to auscultation bilaterally, Normal air movement Cardiovascular: Normal pulses, Regular rate/rhythm Gastrointestinal: Normal bowel sounds, Soft and benign, Non-distended, No tenderness, No masses, No rebound, No guarding Musculoskeletal: No erythema, No tenderness, No warmth Integumentary: No tenderness/swelling, No erythema, No warmth, No cyanosis Neurological: Normal speech, Normal strength at 5/5 x4 extr, Normal tone, Normal affect Laboratory Data at Discharge: WBC 15.2 K/uL (4.3-10.9) H D 02/06/19 05:29 Hgb 12.7 g/dL (13.6-17.9) L 02/06/19 05:29 Hct 36.8 % (39.6-49.0) L 02/06/19 05:29 Plt Count 136 K/uL (152-406) L 02/06/19 05:29 PT 14.8 SECONDS (9.5-12.5) H 02/04/19 08:45 INR 1.27 02/04/19 08:45 Sodium 142 mmol/L (136-145) 02/06/19 05:29 Potassium 4.3 mmol/L (3.5-5.1) 02/06/19 05:29 BUN 23 mg/dL (7-18) H 02/06/19 05:29 Creatinine 1.17 mg/dL (0.55-1.3) 02/06/19 05:29 Glucose 133 mg/dL (74-106) H 02/06/19 05:29 Phosphorus 2.7 mg/dL (2.5-4.9) 02/05/19 05:24 Magnesium 2.2 mg/dL (1.8-2.4) 02/05/19 05:24 Total Bilirubin 0.7 mg/dL (0.2-1.0) 02/04/19 09:23 AST 22 U/L (15-37) 02/04/19 09:23 ALT 35 U/L (12-78) 02/04/19 09:23 Alkaline Phosphatase 65 U/L (45-117) 02/04/19 09:23 Home Medications: Valsartan [Diovan] 320 mg PO DAILY 09/30/11 Aspirin Chewable [Aspirin Chewable*] 1 tab PO DAILY 02/04/19 Albuterol Sulfate [Proair Hfa] 2 puff IH TID PRN #1 hfa.aer.ad 02/07/19 Amoxicillin/Potassium Clav [Augmentin 500-125 Tablet] 1 each PO BID #10 tablet 02/07/19 Benzonatate [Tessalon Perle*] 100 mg PO TID PRN #15 cap 02/07/19 Guaifenesin [Mucinex] 600 mg PO BID #15 tab.er.12h 02/07/19 predniSONE [Deltasone*] 10 mg PO DAILY #3 tab 02/07/19 New Medications: Albuterol Sulfate [Proair Hfa] 2 puff IH TID PRN #1 hfa.aer.ad PRN Reason: Shortness Of Breath Amoxicillin/Potassium Clav [Augmentin 500-125 Tablet] 1 each PO BID #10 tablet Benzonatate [Tessalon Perle*] 100 mg PO TID PRN #15 cap PRN Reason: Cough Guaifenesin [Mucinex] 600 mg PO BID #15 tab.er.12h predniSONE [Deltasone*] 10 mg PO DAILY #3 tab Patient Discharge Instructions: 1. Recommend follow up with his PCP in 1 week to follow up this hospitalization. 2. Patient presented with acute bronchitis failed outpatient therapy. Patient responded to IV antibiotics and steroids. Chest x-ray showed no pneumonia. Patient has done well. Room-air saturations within normal range. Cough improved. At discharge patient will continue with Augmentin 500 mg 1 pill twice daily for 5 days and prednisone 10 mg daily for 3 more days. Patient will also be provided Mucinex 600 mg twice daily for congestion, albuterol 2 puffs 3 times a day as needed for shortness of breath, and Tessalon Perles 100 mg 1 pill 3 times a day as needed for cough. Encourage oral intake, vitamin-C, and continue with incentive spirometer. Recommend follow up with his PCP in 1 week to follow up this hospitalization. Patient may return to work in 5-7 days. 3. Patient with hypertension. Patient will continue with his medication-valsartan 320 mg daily. 4. Patient with history of GERD. At discharge he may continue with over the counter medication like Pepcid as needed. 5. Patient with history of allergic rhinitis. Patient may continue with [id number] medication like Zyrtec 10 mg daily and/or Flonase 1 spray per nostril daily. Diet: AHA Activity: Ad farnaz Time spent managing pt's care (in minutes): 55
== END 2019-02-07 10:45 | disposition home or self-care (01) | DRG 202 ==
LOC: ER 07:47 → ERHOLD 14:08 → 4TH 15:00 → OBSVTOIN 02-05 17:17
PROVIDERS: ADMIT Internal Medicine; ATTEND Internal Medicine
DX: J20.9 Acute bronchitis, unspecified (principal); Z68.41 Body mass index [BMI] 40.0-44.9, adult; I10 Essential (primary) hypertension; K21.9 Gastro-esophageal reflux disease without esophagitis; J30.2 Other seasonal allergic rhinitis; E66.9 Obesity, unspecified; Z23 Encounter for immunization
CPT/HCPCS: 36415; 71045; 80048; 80076; 81003; 81015; 83735; 83880; 84100; 84484; 85025; 85610; 90471; 93005; 94640; 94760; 96374; 99285; G0378; J0696; J1650; J2920; J2930; J7030; J7512; Q2035

== ENCOUNTER 2020-06-05 13:35 | Emergency (ER) | payer OTHER ==
--- OUTSIDE RECORDS SUMMARY | 2020-06-05 13:38 | XMS REPORT | Continuity of Care Document ---
:1950 Author Organization [facility] t Address [address] [place] [address] Care Team Providers Name Role Phone Pisters Primary Care Physician Only, Test Attending Clinician Unavailable Doctor Unassigned, Name Attending Clinician Unavailable Mandeep Jansen DO Attending Clinician Payers Payer Name Policy Type Policy Number Effective Date Expiration Date S ource Problems Condition Condition Condition Status Onset Resolution Last Treating Co mments Source Name Details Category Date Date Treatment Clinician Date Elevated Elevated Disease Active prostate prostate 5-21 Andre o specific specific 00:00: n antigen antigen 00 (PSA) (PSA) Allergies, Adverse Reactions, Alerts Allergy Allergy Status Severity Reaction(s) Onset Inactive Treating Comm ents Source Name Type Date Date Clinician aspartam FA Active [place] [facility] e 2-10 Clear 00:00: Rodriguez 00 [facility] gatiflox DA Active [place] [facility] acin 2-10 Clear 00:00: Rodriguez 00 [facility] gatiflox DA Active U 2019-03 [facility] acin 03-04 [place] 00:[facility]: [facility] Social History Social Habit Start Date Stop Date Quantity Comments Source Sex Assigned At MD Joe Medications Ordered Filled Start Stop Current Ordering Indication Dosage Frequency Signature Comments Components Source Medication Medication Date Date Medication? Clinician (SIG) Name Name magnesium 2018-0 Yes 400mg Take 400 MD oxide 5-21 mg by Anderso (MAOX) 400 18:21: mouth n mg tablet 27 daily. valsartan 2018-0 Yes 320mg Take 320 MD (DIOVAN) 5-21 mg by Anderso 320 mg 18:21: mouth n tablet 27 daily. clonazePAM 2018-0 Yes .5mg Take 0.5 MD (KlonoPIN) 5-21 mg by Anderso 0.5 mg 18:21: mouth as n tablet 27 needed. ARIPiprazol 2018-0 Yes 2mg Take 2 mg M D e (ABILIFY) 5-21 by mouth. And erso 2 mg tablet 18:21: n 27 hydroCHLORO 2018-0 Yes 25mg Take 25 mg MD thiazide 5-21 by mouth 2 Richard so (HYDRODIURI 18:21: (two) n L) 25 mg 27 times a tablet week MTH. cyanocobala 2017-0 Yes 1000ug Take 1,000 MD min 5-21 mcg by Anderso (VITAMIN 18:21: mouth n B-12) 1000 27 daily. mcg tablet aspirin 81 2017- Yes 81mg Take 81 mg M D mg EC 5-21 by mouth. Anderso tablet 18:21: n 27 Procedures This patient has no known procedures. Encounters Start End Encounter Admission Attending Care Care Encounter Source Date/Time Date/Time Type Type Clinicians Facility Department ID 2020-06-01 2020-06-01 Laboratory Only, [facility] [id number] 09:55:23 10:10:23 Only Test [place] [id number] [place] 4.2.7.2.686 [place] [id number] 2020-06-01 2020-06-01 Orders Doctor NOHEMI [id number] 00:00:00 00:00:00 Only UnassignedNANCY [id number] [place] [facility] 4.2.7.2.686 [id number] 2019-03-16 2019-03-16 Emergency [facility] [id number] 10:55:56 16:02:00 Ivania Garcia [id number] [place] [id number] [place] [id number] Results Test Description Test Time Test Comments Results Result Comments Source BASIC METABOLIC PANEL 2020-04-12 19:18:00 Test Item Value Reference Range Interpretation Comme nts SODIUM (test code = NA) 142 mmol/L 136-145 N POTASSIUM (test code = K) 4.1 mmol/L 3.5-5.1 N CHLORIDE (test code = CL) 107.0 mmol/L 98-107 N CARBON DIOXIDE (test code = 25.3 mmol/L 21-32 N CO2) GLUCOSE (test code = GLU) 103 mg/dL 70-110 N BLOOD UREA NITROGEN (test code 25 mg/dL 7-18 H = BUN) GLOMERULAR FILTRATION RATE 51.5 >60 U nit of measure: (test code = GFR) mL/min/1.7 3 a3Cppniixoa Range:Healthy A dults >90 mL/min/1.73 m2 For Chronic Kidney Disease: Stage II Mi ld Decrease in GFR 60-9 0 Stage III Moderate Decrease in GFR 30-59 Stage IV Severe Decrease in GFR 15-29 Stage V Kidney Failure <15 CREATININE (test code = CREAT) 1.36 mg/dL 0.55-1.30 H CALCIUM (test code = CA) 8.0 mg/dL 8.2-10.1 L PROTHROMBIN [id number] 18:37:00 Test Item Value Reference Range Interpretation Comments PROTHROMBIN TIME 13.1 secs 10.1-12.5 H PATIENT (test code = PTP) INTERNATIONAL NORMAL 1.15 <2.0 RECOMME NDED THERAPEUTIC RATIO (test code = RANGE FOR ORAL INR) ANTICOAGULANTTR EATMENT: CONDI TION INRProphylaxis of venous thrombos is in 2.0 - 3.0 high-risk medic al or surgical patientsTreatme nt of venous thrombos is 2.0 - 3.0Prevention o f embolism 2.0 - 3.0Prevention o f recurrent embol ism, or 3.0 - 4. 5 patients with mechanical pros thetic intravascular v lomas IS PATIENT ON ANTICOAGULANTS ? YLIST ANTICOAGULANT/ANTI PLT MEDICATION : AspirinHas Lab been notified if Patient is on Heparin Drip? NOTHROMBOPLASTIN TIME [id number] 18:37:00 Test Item Value Reference Range Interpretation Comments PTT ACTIVATED (test code = APTT) 31.8 secs 24.9-37.0 N IS PATIENT ON ANTICOAGULANTS ? YLIST ANTICOAGULANT/ANTI PLT MEDICATION : AspirinHas Lab been notified if Patient is on Heparin Drip? NOCBC W/AUTO DIFF 2020-04-12 18:23:00 Test Item Value Reference Range Interpretation Comments WHITE BLOOD CELL (test code = WBC) 5.6 K/mm3 5.7-10.5 L RED BLOOD CELL (test code = RBC) 4.41 M/mm3 4.2-5.4 N HEMOGLOBIN (test code = HGB) 13.6 g/dL 12-16 N HEMATOCRIT (test code = HCT) 42.0 % 37-47 N MEAN CELL VOLUME (test code = MCV) 95 fL 80-98 N MEAN CELL HGB (test code = MCH) 30.8 pg 27-34 N MEAN CELL HGB CONCENTRATION (test 32.4 g/dL 30.8-34.1 N code = MCHC) RED CELL DISTRIBUTION WIDTH (test 13.5 % 11-16 N code = RDW) PLT (test code = PLT) 126 K/mm3 130-400 L MEAN PLATELET VOLUME (test code = 13.0 fL 8.9-12.1 H MPV) NEUTROPHIL % (test code = NT%) 68.1 % 45-70 N LYMPHOCYTE % (test code = LY%) 20.7 % 20-40 N MONOCYTE % (test code = MO%) 8.2 % 3-10 N EOSINOPHIL % (test code = EO%) 2.1 % 1-5 N BASOPHIL % (test code = BA%) 0.5 % 0.0-1.1 N NEUTROPHIL # (test code = NT#) 3.81 K/mm3 2.00-7.50 N LYMPHOCYTE # (test code = LY#) 1.16 K/mm3 1.50-4.00 L MONOCYTE # (test code = MO#) 0.46 K/mm3 0.2-0.8 N EOSINOPHIL # (test code = EO#) 0.12 K/mm3 0.04-0.4 N BASOPHIL # (test code = BA#) 0.03 K/mm3 0.02-0.10 N MANUAL DIFF REQUIRED (test code = NO MANUAL DIFF MDIFF) NUCLEATED RED BLOOD CELL (test 0 % 0-0 N code = NRBC) - XR FLUORO FOR SPINE [id number] 17:00:00 [facility] 1950 Sex: M Patient Name: ALETA SUMNER Unit No: [id number] EXAMS: CPT CODE: [id number] XR FLUORO FOR SPINE INJ [id number] LUMBAR EPIRADICULAR INJECTION REFERRAL PHYSICIAN: None PREOPERATIVE DIAGNOSIS: Lumbar Radiculitis POSTOPERATIVE DIAGNOSIS: 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 FINDINGS: Fairly tight flow seen through both foramen and flow was limited in the right L4-5 lateral recess and centrally across the L4-5 disc where there appears to be focal marked anterior epidural displacement. Provocation with injection was negative. Anestheticresponse was positive with the patient noting complete relief of his right low back and hip pain. Preinjection VAS 4/10. Postinjection VAS 0/10. Steroid response pending follow-up. ESTIMATED BLOOD LOSS: Minimal ANESTHESIA: TIVA COMPLICATIONS: None DETAILS OF PROCEDURE: After obtaining stable vital signs, informed consent and IV access, with no contraindications, the patient was taken to the operating room and placed in a prone position with all extremities padded and appropriate monitors placed. The patient was sterilely prepped and draped over the lumbosacral spine. Using fluoroscopic visualization the insertion sites were marked for paravertebral approaches and using standard technique, a 25 gauge needle was advanced to the base of each pedicle without paresthesias. Isovue-300 contrast 0.2 mL of was injected incrementally with frequent negative aspirations to produce each epidurogram. There were no signs of intravascular or intrathecal uptake. Bupivicaine 0.75% 0.25 mL with lidocaine 4% 0.5 mL and Decadron 8 mg was then incrementally injected with frequent negative aspirations and again there were no signs of intravascular or intrathecal uptake. The needles were removed and the patient was taken to the PACU in good condition. at 1700 Reported and signed by: Melquiades Fuchs M.D. CC: Melquiades Fuchs MD Technologist: VIKI LEVIN RT(R) Transcribed D/ (1699) [facility] [place] NAME: ALETA SUMNER JR [address] [facility] PHYS: Melquiades Finch MD [place], [place] [address] : 1950 AGE: 69 SEX: M LOC: ANY PHONE #: [phone] EXAM DATE: 01/04/2020 STATUS: REG [facility] FAX #: [phone] RAD #: D/C DT PAGE 1 Signed Report Patient Name: ALETA SUMNER JR Unit No: [id number] EXAMS: CPT CODE: [id number] XR FLUORO FOR SPINE INJ [id number] <Continued> Orig Print D/T: S: 01/04/2020 (170) [facility] [place] NAME: ALETA SUMNER JR [address] [facility] PHYS: Melquiades Finch MD [place], [place] [address] : 1950 AGE: 69 SEX: M LOC: ANY PHONE #: [phone] EXAM DATE: 01/04/2020 STATUS: REG [facility] FAX #: [phone] RAD #: D/C DT PAGE 2 Signed Report- MRI L-SPINE W/O [id number] 08:21:00 Patient Name: ALETA SUMNER Unit No: [id number] EXAMS: CPT CODE: [id number] MRI L-SPINE W/O CONT [id number] TECHNIQUE: Multiplanar, multisequence MRI examination performed of the lumbar spine without intravenous contrast material. COMPARISON: None available. FINDINGS: Five lumbar type vertebra are assumed. Alignment: Grade 1 retrolisthesis of L5-S1 Bone Lesion: Small hemangiomas are seen within the L4 and L5 vertebral bodies. Fracture: None present. Paraspinal Soft Tissues: Unremarkable. Conus Medullaris: Termination at L1-L2 level. Morphology is normal. L1/2: No significant abnormality. L2/3: Minimal disc bulge. Mild facet hypertrophy. Mild foraminal stenosis is present bilaterally without significant central canal stenosis. L3/4: Disc desiccation and left asymmetric disc bulge. Facet hypertrophy and ligamentum flavum thickening. There is moderate central canal stenosis as well as moderate left, mild right foraminal stenosis. L4/5: Right asymmetric disc bulge with superimposed right paracentral/foraminal disc protrusion measuring 5 mm. The extrusion impinges the traversing right L5 nerve. Facet hypertrophy and ligamentum flavum thickening contribute to [id number] central canal stenosis. Mild left, moderate right foraminal stenosis. L5/S1: Grade 1 retrolisthesis. Marked disc degeneration with broad disc bulge.Mild bilateral facet hypertrophy. There is mild central canal stenosis as well as moderate bilateral foraminal stenosis. IMPRESSION: Multilevel lumbar spondylosis with a right paracentral disc protrusion at L4-L5 which impinges the right L5 nerve. at 0821 Reported and signed by: Sher Lomas M.D. CC: Ric Gaming MD Technologist: TIFFANIE FORD MRI Transcribed D/ (0821) [facility] ALETA [facility] [address] [facility] [address] PHYS: Ric Ochoa : 1950 AGE: 69 SEX: Richard [place], [place] [address] LOC: Y.MRI PHONE #: [phone] EXAM DATE: 12/07/2019 STATUS: DEP CLI FAX #: [phone] RAD #: D/C DT PAGE 1 Signed Report Patient Name: ALETA SUMNER Unit No: [id number] EXAMS: CPT CODE: [id number] MRI L-SPINE W/O CONT [id number] <Continued> Orig Print D/T: S: 12/08/2019 (0825) [facility] NAME: ALETA SUMNER [address] [facility] PHYS: Ric Ochoa : 1950 AGE: 69 SEX: M [place], [place] [address] LOC: Y.MRI PHONE #: [phone] EXAM DATE: 12/07/2019 STATUS: DEP CLI FAX #: [phone] RAD #: D/C DT PAGE 2 Signed Report
[2020-06-05 19:34] LABS: Absolute Lymphocytes (CBC) 0.3 K/uL (0.7-4.9); Basophils % 0.1 % (0-1.3); Hematocrit 47.6 % (39.6-49.0); Lymphocytes % 5.4 % (15.3-44.8); MPV 11.5 fL (7.6-11.3); RBC Red Blood Cell Count 5.04 M/uL (4.33-5.43)
[2020-06-05] MEDS ORDERED: FENTANYL CITR 100 MCG/2 ML ONE (19:34)
[2020-06-05] MEDS ORDERED: ONDANSETRON 4 MG/2 ML VIAL ONE (19:34)
[2020-06-05] MEDS ORDERED: NA CHLORIDE 0.9% 1,000 ML ONE (19:35)
[2020-06-05 19:43] LABS: Albumin 3.9 g/dL (3.4-5.0); Bilirubin Direct 0.1 mg/dL (0-0.2); Bilirubin Total 0.6 mg/dL (0.2-1.0); Potassium 4.1 mmol/L (3.5-5.1); Protein, Total 8.1 g/dL (6.4-8.2)
--- NOTE | 2020-06-05 20:17 | RAD REPORT ---
EXAM DESCRIPTION: CTAbdomen Pelvis W Contrast - 06/05/2020 8:04 pm CLINICAL HISTORY: Abdominal pain. ABD PAIN COMPARISON: CT ABD PELVIS W CONTRAST dated 02/03/2015; CT ABD PELVIS W CONTRAST dated 12/20/2013 TECHNIQUE: Biphasic CT imaging of the abdomen and pelvis was performed with 100 ml non-ionic IV cont rast. All CT scans are performed using dose optimization technique as appropriate and may include automated exposure control or mA/KV adjustment according to patient size. FINDINGS: The lung bases are clear. The liver, spleen, pancreas, adrenal glands and kidneys are within normal limits. Small benign liver and right renal cysts. No bowel obstruction, free air, free fluid or abscess. Multiple dilated small bowel loops are present with mild wall thickening suggesting a nonspecific enteritis. Appendectomy. No evidence of signific ant lymphadenopathy. Mild to moderate lower lumbar degenerative changes. IMPRESSION: Multiple fluid-filled and mildly dilated small bowel loops are present in the abdomen laboy ggesting ileus or enteritis.
--- NOTE | 2020-06-05 20:20 | ER ---
Nurse's Notes [facility] Name: Job Branch Jr Age: 70 yrs Sex: Male : 1950 Arrival Date: 06/05/2020 Time: 13:40 Bed 19 Private MD: Jens Robbins T Diagnosis: Diarrhea, unspecified;Generalized abdominal pain Presentation: 06/05 13:54 Chief complaint: Patient states: Friday started having abd pain, nausea, and ll1 diarrhea. Believed he has food poisoning. Temp 101./3 at home. Coronavirus screen: Client denies travel out of the [place] in the last 14 days. At this time, the client does not indicate any symptoms associated with coronavirus-19. Ebola Screen: Patient denies travel to an Ebola-affected area in the 21 days before illness onset. Initial Sepsis Screen: Does the patient meet any 2 criteria? No. Patient's initial sepsis screen is negative. Does the patient have a suspected source of infection? Yes: Acute abdominal pain. Risk Assessment: Do you want to hurt yourself or someone else? Patient reports no desire to harm self or others. Onset of symptoms was June 03, 2020. 13:54 Method Of Arrival: Wheelchair ll1 13:54 Acuity: SOLANGE 3 ll1 Historical: - Allergies: 13:57 Tequins; ll1 13:57 tramadol; ll1 - PMHx: 13:57 Hypertension; ll1 - PSHx: 13:57 Hernia repair; Appendectomy; ll1 - Immunization history:: Flu vaccine is up to date. - Social history:: Smoking status: Patient denies any tobacco usage or history of. Screenin:16 Abuse screen: Denies threats or abuse. Nutritional screening: No deficits noted. bw Tuberculosis screening: No symptoms or risk factors identified. Fall Risk None identified. Assessment: 18:16 Pain: Complains of pain in abdomen. Neuro: No deficits noted. Cardiovascular: No bw deficits noted. Respiratory: No deficits noted. GI: Bowel sounds present X 4 quads. Abd is soft and non tender. : No deficits noted. EENT: No deficits noted. Derm: No deficits noted. 19:15 General: Appears in no apparent distress. uncomfortable, Behavior is calm, cooperative, wh appropriate for age. Pain: Complains of pain in left upper quadrant and left lower quadrant Pain currently is 8 out of 10 on a pain scale. Neuro: Level of Consciousness is awake, alert, obeys commands, Oriented to person, place, time, situation, Appropriate for age. Cardiovascular: Capillary refill < 3 seconds. Respiratory: Airway is patent Respiratory effort is even, unlabored, Respiratory pattern is regular, symmetrical. GI: Abdomen is round non-distended, Abd is soft and non tender. : No signs and/or symptoms were reported regarding the genitourinary system. EENT: No signs and/or symptoms were reported regarding the EENT system. Derm: Skin is intact, is healthy with good turgor, Skin is pink, warm \T\ dry. normal. Musculoskeletal: Circulation, motion, and sensation intact. 20:36 Reassessment: Patient appears in no apparent distress at this time. Patient and/or wh family updated on plan of care and expected duration. Pain level reassessed. Patient is alert, oriented x 3, equal unlabored respirations, skin warm/dry/pink. Vital Signs: 13:54 BP 112 / 67; Pulse 87; Resp 17; Temp 98.6; Pulse Ox 96% ; Weight 130.63 kg; Height 5 ll1 ft. 11 in. (180.34 cm); Pain 5/10; 18:16 BP 97 / 69; Pulse 87; Resp 18; Pulse Ox 100% on R/A; Pain 7/10; bw 19:44 BP 107 / 73; Pulse 72; Resp 18; Pulse Ox 96% ; wh 13:54 Body Mass Index 40.17 (130.63 kg, 180.34 cm) ll1 ED Course: 13:40 Patient arrived in ED. mr 13:40 Jens Robbins MD is Private Physician. mr 13:56 Triage completed. ll1 13:57 Arm band placed on. ll1 18:10 Claribel Rodrigez FNP-C [facility]. kb 18:10 Christiano Purcell MD is Attending Physician. kb 18:16 Kareen Cristina, GRACIE is Primary Nurse. bw 18:16 Patient has correct armband on for positive identification. Bed in low position. Call bw light in reach. Side rails up X2. Pulse ox on. NIBP on. Warm blanket given. Pillow given. 18:16 No provider procedures requiring assistance completed. bw 20:04 CT Abd/Pelvis - IV Contrast Only In Process Unspecified. EDMS 20:37 IV discontinued, intact, bleeding controlled, No redness/swelling at site. 21:31 pt discharged prior to notification of band count. Provider unavailable at this time. bb Administered Medications: 19:26 Drug: NS 0.9% 1000 ml Route: IV; Rate: 1000 ml; Site: right antecubital; 20:21 Follow up: Response: No adverse reaction; IV Status: Completed infusion 19:28 Drug: fentaNYL (PF) 25 mcg {Note: RASS 0.} Route: IVP; Site: right antecubital; 20:21 Follow up: Response: No adverse reaction; Pain is decreased; RASS: Alert and Calm (0) 19:30 Drug: Zofran (Ondansetron) 4 mg Route: IVP; Site: right antecubital; 20:21 Follow up: Response: No adverse reaction; Nausea is decreased Outcome: 20:19 Discharge ordered by . kb 20:36 Discharged to home ambulatory, with family. 20:36 Condition: stable 20:36 Discharge instructions given to patient, family, Instructed on discharge instructions, follow up and referral plans. medication usage, POC Demonstrated understanding of instructions, follow-up care, medications, POC Prescriptions given X 1. 20:48 Patient left the ED. Signatures: Dispatcher [employer] EDMS Claribel Rodrigez, ASH COLLECTOR-C ASH COLLECTOR-Darian ReedaBeccaardMagalis, Ben Vega RN, RN RN Monica Oscar RN RN [facility] Kareen Cristina RN RN
--- NOTE | 2020-06-05 20:20 | EDPHYS ---
Physician Documentation [facility] Name: Job Branch Jr Age: 70 yrs Sex: Male : 1950 Arrival Date: 06/05/2020 Time: 13:40 Bed 19 Private MD: Jens Robbins T ED Physician Christiano Purcell HPI: 06/05 19:19 This 70 yrs old Male presents to ER via Wheelchair with complaints of kb Abdominal Pain, Diarrhea. 19:19 The patient presents with abdominal pain in the left upper quadrant, in the left lower kb quadrant. Onset: The symptoms/episode began/occurred 3 day(s) ago. The symptoms do not radiate. Associated signs and symptoms: Pertinent positives: diarrhea. The symptoms are described as crampy. Modifying factors: The symptoms are alleviated by nothing, the symptoms are aggravated by nothing. Severity of pain: At its worst the pain was moderate in the emergency department the pain is unchanged. The patient has not experienced similar symptoms in the past. The patient has not recently seen a physician. Historical: - Allergies: 13:57 Tequins; ll1 13:57 tramadol; ll1 - PMHx: 13:57 Hypertension; ll1 - PSHx: 13:57 Hernia repair; Appendectomy; ll1 - Immunization history:: Flu vaccine is up to date. - Social history:: Smoking status: Patient denies any tobacco usage or history of. ROS: 19:43 Constitutional: Negative for fever, chills, and weight loss, Cardiovascular: Negative kb for chest pain, palpitations, and edema, Respiratory: Negative for shortness of breath, cough, wheezing, and pleuritic chest pain, MS/Extremity: Negative for injury and deformity, Skin: Negative for injury, rash, and discoloration, Neuro: Negative for headache, weakness, numbness, tingling, and seizure. 19:43 Abdomen/GI: Positive for abdominal pain, diarrhea. Exam: 19:43 Constitutional: This is a well developed, well nourished patient who is awake, alert, kb and in no acute distress. Head/Face: Normocephalic, atraumatic. Respiratory: Respirations even and unlabored. No increased work of breathing, no retractions or nasal flaring. Skin: Warm, dry with normal turgor. Normal color. MS/ Extremity: Pulses equal, no cyanosis. Neurovascular intact. Full, normal range of motion. Neuro: Awake and alert, GCS 15, oriented to person, place, time, and situation. Moves all extremities. Normal gait. 19:43 Abdomen/GI: Inspection: abdomen appears normal, Bowel sounds: normal, in all quadrants, Palpation: soft, in all quadrants, mild abdominal tenderness, in the left upper quadrant, moderate abdominal tenderness, in the left lower quadrant. Vital Signs: 13:54 BP 112 / 67; Pulse 87; Resp 17; Temp 98.6; Pulse Ox 96% ; Weight 130.63 kg; Height 5 ll1 ft. 11 in. (180.34 cm); Pain 5/10; 18:16 BP 97 / 69; Pulse 87; Resp 18; Pulse Ox 100% on R/A; Pain 7/10; bw 19:44 BP 107 / 73; Pulse 72; Resp 18; Pulse Ox 96% ; wh 13:54 Body Mass Index 40.17 (130.63 kg, 180.34 cm) ll1 MDM: 18:11 Patient medically screened. kb 19:23 Data reviewed: vital signs, nurses notes. Data interpreted: Pulse oximetry: on room air kb is 100 %. Interpretation: normal. 20:18 Counseling: I had a detailed discussion with the patient and/or guardian regarding: the kb historical points, exam findings, and any diagnostic results supporting the discharge/admit diagnosis, lab results, radiology results, the need for outpatient follow up, a family practitioner, to return to the emergency department if symptoms worsen or persist or if there are any questions or concerns that arise at home. 06/05 18:11 Order name: Basic Metabolic Panel kb 06/05 18:11 Order name: CBC with Diff kb 06/05 18:11 Order name: Hepatic Function; Complete Time: 19:44 kb 06/05 18:11 Order name: Lipase; Complete Time: 19:44 kb 06/05 18:12 Order name: Basic Metabolic Panel; Complete Time: 19:44 EDMS 06/05 18:12 Order name: CBC with Automated Diff EDMS 06/05 18:11 Order name: IV Saline Lock; Complete Time: 19:19 kb 06/05 18:11 Order name: Labs collected and sent; Complete Time: 19:19 kb 06/05 18:11 Order name: CT Abd/Pelvis - IV Contrast Only; Complete Time: 20:18 kb 06/05 20:24 Order name: Manual Differential EDMS Administered Medications: 19:26 Drug: NS 0.9% 1000 ml Route: IV; Rate: 1000 ml; Site: right antecubital; 20:21 Follow up: Response: No adverse reaction; IV Status: Completed infusion 19:28 Drug: fentaNYL (PF) 25 mcg {Note: RASS 0.} Route: IVP; Site: right antecubital; 20:21 Follow up: Response: No adverse reaction; Pain is decreased; RASS: Alert and Calm (0) 19:30 Drug: Zofran (Ondansetron) 4 mg Route: IVP; Site: right antecubital; 20:21 Follow up: Response: No adverse reaction; Nausea is decreased Disposition: 06/06 08:22 Co-signature as Attending Physician, Christiano Purcell MD. rn Disposition: 06/05/20 20:19 Discharged to Home. Impression: Diarrhea, unspecified, Generalized abdominal pain. - Condition is Stable. - Discharge Instructions: Food Choices to Help Relieve Diarrhea, Adult, Diarrhea, Adult, [id number]. - Prescriptions for Bentyl 20 mg Oral Tablet - take 1 tablet by ORAL route every 6 hours As needed; 20 tablet. - Medication Reconciliation Form, Thank You Letter, Antibiotic Education, Prescription Opioid Use form. - Follow up: Emergency Department; When: As needed; Reason: Worsening of condition. Follow up: Private Physician; When: 2 - 3 days; Reason: Recheck today's complaints, Continuance of care, Re-evaluation by your physician. Signatures: Dispatcher [employer] EDMS Claribel Rodrigez, CHIN STRAP CUTTER-C CHIN STRAP CUTTER-CkChristiano Hahn MD MD rn Habalo, Winsy, RN RN wh Lewis, Lynsay RN RN ll1 Corrections: (The following items were deleted from the chart) 06/05 20:48 20:19 06/05/2020 20:19 Discharged to Home. Impression: Diarrhea, unspecified; Generalized abdominal pain. Condition is Stable. Forms are Medication Reconciliation Form, Thank You Letter, Antibiotic Education, Prescription Opioid Use. Follow up: Emergency Department; When: As needed; Reason: Worsening of condition. Follow up: Private Physician; When: 2 - 3 days; Reason: Recheck today's complaints, Continuance of care, Re-evaluation by your physician. kb
[2020-06-05 21:06] LABS: Blood Morphology Comment NOT SEEN (NOT SEEN); Platelet Estimate ADEQ
[2020-06-05 21:17] VITALS: TEMP 98.6
[2020-06-05 21:20] VITALS: BP 107/73; O2SAT 96
== END 2020-06-05 20:48 | disposition home or self-care (01) ==
LOC: ER 13:35
DX: R10.84 Generalized abdominal pain (principal); R19.7 Diarrhea, unspecified; I10 Essential (primary) hypertension
CPT/HCPCS: 85025; 80048; 36415; 80076; 83690; 74177; Q9967; J3010; J7030; J2405; 96361; 96374; 96375; 99284

== ENCOUNTER 2021-01-28 14:29 | Emergency (ER) | payer OTHER ==
--- OUTSIDE RECORDS SUMMARY | 2021-01-28 14:32 | XMS REPORT | Clinical Summary ---
:1950 Author Organization [facility] Address [address] [place] [address] Care Team Providers Name Role Phone Jens Robbins MD Unavailable MD Oli Primary Care Provider Dez Cruz MD Unavailable Allergies Active Allergy Reactions Severity Noted Date Comments Gatifloxacin 07/21/2017 Medications Medication Sig Dispensed Refills Start Date End Date Status valsartan (DIOVAN) 320 mg Take 320 mg 0 Active tablet by mouth daily. clonazePAM (KlonoPIN) 0.5 Take 0.5 mg 0 Active mg tablet by mouth as needed. ARIPiprazole (ABILIFY) 2 mg Take 2 mg by 0 Active tablet mouth. hydroCHLOROthiazide Take 25 mg by 0 Active (HYDRODIURIL) 25 mg tablet mouth 2 (two) times a week MTH. cyanocobalamin (VITAMIN Take 1,000 0 Active B-12) 1000 mcg tablet mcg by mouth daily. aspirin 81 mg EC tablet Take 81 mg by 0 Active mouth. magnesium oxide (MAOX) 400 Take 400 mg 0 Active mg tablet by mouth daily. Active Problems Problem Noted Date Elevated prostate specific antigen (PSA) 07/21/2017 Encounters Date Type Specialty Care Team Description 06/10/2020 Orders Only Infectious Diseases Owen Ludwig MD S ARS-CoV-2 vaccination after 01/29/2020 Social History Tobacco Use Types Packs/Day Years Used Date Never Assessed Sex Assigned at Date Recorded Not on file Obstetrics History Last Filed Vital Signs Not on file Plan of Treatment Health Maintenance Due Date Last Done Comments COVID-19 Vaccination (1) 1960 Results Not on fileafter 01/29/2020 Insurance Payer Benefit Plan Subscriber ID Effective Phone Address Typ e / Group Dates MEDICARE MEDICARE PART [id number] 2013-Prese [phone] [employer] Medicare A AND B nt [address] [employer] [address] [place] [address] [employer] MANAGED [employer] HMO [id number] 2013-[place]se [address] [place] [id number] [place] [address] Care 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
--- OUTSIDE RECORDS SUMMARY | 2021-01-28 14:34 | XMS REPORT | Continuity of Care Document ---
:1950 Author Organization [facility] Address [address] [place] [address] Care Team Providers Name Role Phone Oli ROSAS Primary Care Physician Lenard Gaming Attending Clinician Unavailable Oziel ROSAS Attending Clinician Only, Test Attending Clinician Unavailable PETRONA Attending Clinician Unavailable Doctor Unassigned, Name Attending Clinician Unavailable Leandro Attending Clinician Unavailable Jose Manuel Fuchs Attending Clinician Unavailable Mandeep Jansen DO Attending Clinician Lenard Gaming Admitting Clinician Unavailable NONE Admitting Clinician Unavailable Payers Payer Name Policy Type Policy Number Effective Expiration Source Date Date MEDICAREMEDICARE PART [id number] 2013 MD Joe A AND 00:00:00 [id number] [facility] [address] [address]Medicare AETNA MANAGED [id number] MD Joe CAREAETNA 00:00:00 [id number] 2013[facility] [address] [address]REI MEDICARE PART A \T\ B [id number] 2013 00:00:00 KADI NOONAN [id number] 2017 00:00:00 Problems Condition Condition Condition Status Onset Resolution Last Treating Co mments Source Name Details Category Date Date Treatment Clinician Date Elevated Elevated Disease Active prostate prostate 5-21 Andre o specific specific 00:00: n antigen antigen 00 (PSA) (PSA) Allergies, Adverse Reactions, Alerts Allergy Allergy Status Severity Reaction(s) Onset Inactive Treating Comm ents Source Name Type Date Date Clinician aspartam FA Active [place] 2020-0 [facility] HANDS[facility]FEET; 06-22 [facility] [place] gatiflox DA Active [place] 2020-0 [facility] acin HANDS/FEET; 06-22 [facility] NERVE 00:00: [facility] PR[facility]LE[facility] [place] aspartam FA Active [place] 2020-0 [facility] e 06-22 [facility] 00:[facility]: [facility] [place] gatiflox DA Active [place] 2020-0 [facility] acin 4 [facility] 00:00: [facility] [place] gatiflox DA Active [place] 2020-0 [facility] acin HANDS/FEET; 4-15 Clear NERVE 00:00: Rodriguez PROBLEMS [facility] aspartam FA Active [place] 2020-0 [facility] e 4-15 Clear 00:00: Rodriguez 00 [facility] gatiflox DA Active [place] 2020-0 [facility] acin 4-15 Clear 00:00: Rodriguez 00 [facility] aspartam FA Active [place] 2020-0 [facility] e HANDS/FEET; 4-15 Clear NERVE 00:00: Rdoriguez PROBLEMS [facility] aspartam FA Active [place] 2020-0 [facility] HANDS/FEET; 2-10 Clear NERVE 00:00: Rodriguez PROBLEMS [facility] gatiflox DA Active [place] 2020-0 [facility] acin HANDS/FEET; 2-10 Clear NERVE 00:00: Rodriguez PROBLEMS 00 [facility] aspartam FA Active [place] 2020-0 [facility] e 2-10 Clear 00:00: Rodriguez 00 [facility] gatiflox DA Active [place] 2020-0 [facility] acin 2-10 Clear 00:00: Rodriguez 00 [facility] gatiflox DA Active U 2019- [facility] [place] [facility] gatiflox DA Active U unknown 2019-03 [facility] acin 03-04 [place] 00:[facility] GATIFLOX DRUG Active An[facility] ZULEYKA BAI 1-14 [facility] 00[facility]: [place] [facility] Social History Social Habit Start Date Stop Date Quantity Comments Source Sex Assigned At [birth year] MD Joe 00:00:00 00:00:00 Medications Ordered Filled Start Stop Current Ordering Indication Dosage Frequency Signature Comments Components Source Medication Medication Date Date Medication? Clinician (SIG) Name Name cyanocobala Yes 1000ug Take 1,000 MD min 5-21 mcg by Anderso (VITAMIN 13:21: mouth n B-12) 1000 27 daily. mcg tablet aspirin 81 Yes 81mg Take 81 mg M D mg EC 5-21 by mouth. Anderso tablet 13:21: n 27 magnesium 2017- Yes 400mg Take 400 MD oxide 5-21 mg by Anderso (MAOX) 400 13:21: mouth n mg tablet 27 daily. valsartan Yes 320mg Take 320 MD (DIOVAN) 5-21 mg by Anderso 320 mg 13:21: mouth n tablet 27 daily. clonazePAM 2018- Yes .5mg Take 0.5 MD (KlonoPIN) 5-21 mg by Anderso 0.5 mg 13:21: mouth as n tablet 27 needed. ARIPiprazol Yes 2mg Take 2 mg M D e (ABILIFY) 5-21 by mouth. And erso 2 mg tablet 13:21: n 27 hydroCHLORO 2018- Yes 25mg Take 25 mg MD thiazide 5-21 by mouth 2 Richard so (HYDRODIURI 13:21: (two) n L) 25 mg 27 times a tablet week MTH. Procedures Procedure Date / Time Performed Performing Clinician Khurram olivo [id number] 2020-06-22 00:00:00 [facility] [place] [facility] [id number] 2020-06-22 00:00:00 [facility] [place] [facility] [id number] 2020-06-[id number] [id number] 2020-06-22 00:00:00 [facility] [place] [facility] [id number] 2020-06-22 00:00:00 [facility] [place] [facility] [id number] 2020-06-22 00:00:00 [facility] [place] [facility] [id number] 2020-06-22 00:00:00 [facility] [place] [facility] Plan of Care Planned Activity Planned Date Details Comments Source Future Scheduled Test 1960 00:00:00 COVID-19 Vaccination MD Joe (1) [code = COVID-19 Vaccination (1)] Encounters Start End Encounter Admission Attending Care Care Encounter Source Date/Time Date/Time Type Type Clinicians Facility Department ID 2020-07-15 Inpatient LISA CheathamAmberly [facility] [id number] [facility] 16:04:00 Ric [id number] [facility] 2020-06-22 Inpatient LISA CheathamAmberly, [facility] [id number] [facility] 16:04:00 Ric [id number] [facility] 2020-06-15 Inpatient LISA Gaming [facility] [id number] [facility] 16:04:00 Ric [id number] [facility] 2020-05-12 Inpatient LIAM StantonTO ADMI [id number] [facility] 15:58:00 Ric [id number] [facility] 2019-12-07 Inpatient LIAM StantonTO RADI [id number] [facility] 14:30:00 Ric [facility] 2020-07-05 2020-07-05 Outpatient LIAM MathewTO LABO [id number] 7-20 [facility] 13:00:00 13:00:00 Ric [id number] [facility] 2020-06-25 2020-06-25 Outpatient LIAM GamingWH SIST [id number] 7-20 [facility] 07:22:00 07:22:00 Ric [id number] [facility] 2020-06-15 2020-06-15 Outpatient LIAM GamingCL LABO [id number] 7-20 [facility] 13:22:00 13:22:00 Ric [id number] [facility] 2020-06-01 2020-06-01 Laboratory Only, Adc [facility] [id number] 09:55:23 10:10:23 Only Test Radha 350.1.13.10 Jessica 4.2.7.2.686 [place] [id number] 2020-06-01 2020-06-01 Outpatient Beth RUSS, [facility] [id number] Univers 10:00:00 10:00:00 VIKAS loera [facility] 2020-06-01 2020-06-01 Orders Doctor NOHEMI [id number] 00:00:00 00:00:00 Only Unassigned, NANCY 350.1.13.10 [place] [id number] 2020-04-12 2020-04-12 Outpatient LIAM GamingCL LABO [id number] 7-20 [facility] 18:11:00 18:11:00 Ric [id number] [facility] 2020-04-12 2020-04-12 Outpatient LIAM StantonTO 3DAY [id number] 7-20 [facility] 09:00:00 09:00:00 Ric [id number] [place] [facility] 2020-01-04 2020-01-04 Outpatient DAVID Fuchs PAIN [id number] [facility] 15:30:00 15:30:00 Vikas [facility] 2019-03-16 2019-03-16 Emergency [facility] [id number] 10:55:56 16:02:00 Ivania Garcia 350.1.13.10 [place] 4.2.7.2.686 [place] [id number] Results Test Description Test Time Test Comments Results Result Comments Source POTASSIUM 2020-07-05 14:34:00 Test Item Value Reference Range Interpretation Comme nts POTASSIUM (test code = K) 4.6 mmol/L 3.5-5.1 N BASIC METABOLIC [id number] 06:15:00 Test Item Value Reference Range Interpretation Comments SODIUM (test code = 144 mmol/L 136-145 N NA) POTASSIUM (test code = 3.0 mmol/L 3.5-5.1 L K) CHLORIDE (test code = 106.0 mmol/L 98-107 N CL) CARBON DIOXIDE (test 28.2 mmol/L 21-32 N code = CO2) GLUCOSE (test code = 109 mg/dL 70-110 N GLU) BLOOD UREA NITROGEN 13 mg/dL 7-18 N (test code = BUN) GLOMERULAR FILTRATION 70.2 >60 Unit o f measure: RATE (test code = GFR) mL/mi n/1.73 [id number] Range:Healthy Adults >90 mL/min/1.73 m2 For Chronic Kidney Disease: St age II Mild Decrease in GFR 60-90 St age III Moderate Decrease in GFR 30-59 Stage IV Severe Decre ase in GFR 15- 29 Stage V Kidney Failure <15 CREATININE (test code 1.04 mg/dL 0.55-1.30 N = CREAT) CALCIUM (test code = 7.4 mg/dL 8.2-10.1 L CA) [id number] 06:15:00 Test Item Value Reference Range Interpretation Comments MAGNESIUM (test code = MAG) 2.0 mg/dL 1.8-2.4 N [id number] 20:49:00 Test Item Value Reference Range Interpretation Comments POTASSIUM (test code = 2.8 mmol/L 3.5-5.1 LL VERIF IED BY REPEAT K) ANALYSIS.CRITIC AL VALUE CALLED TO CHELSIE/DAYO RAMEY BACK & CONFIRME D? JUAN Y.LAB.CD 06/28/202047 BASIC METABOLIC [id number] 06:45:00 Test Item Value Reference Range Interpretation Comments SODIUM (test code = 146 mmol/L 136-145 H NA) POTASSIUM (test code = 3.2 mmol/L 3.5-5.1 L K) CHLORIDE (test code = 108.0 mmol/L 98-107 H CL) CARBON DIOXIDE (test 27.4 mmol/L 21-32 N code = CO2) GLUCOSE (test code = 91 mg/dL 70-110 N GLU) BLOOD UREA NITROGEN 15 mg/dL 7-18 N (test code = BUN) GLOMERULAR FILTRATION 75.2 >60 Unit o f measure: RATE (test code = GFR) mL/mi n/1.73 [id number] Range:Healthy Adults >90 mL/min/1.73 m2 For Chronic Kidney Disease: St age II Mild Decrease in GFR 60-90 St age III Moderate Decrease in GFR 30-59 Stage IV Severe Decre ase in GFR 15- 29 Stage V Kidney Failure <15 CREATININE (test code 0.98 mg/dL 0.55-1.30 N = CREAT) CALCIUM (test code = 7.4 mg/dL 8.2-10.1 L CA) - XR ABDOMEN 1 [id number] 12:10:00 [facility] : 1950 Sex: M Patient Name: ALETA SUMNER Unit No: [id number] EXAMS: CPT CODE: [id number] XR ABDOMEN 1 V 24920 KUB: COMMENT: Dilated loops of small large b owel are compatible with a small large bowel ileus. KUB: COMMENT: Dilated loops of small and large bowel compatible with small large bowel ileus. This is not significantly changed from previous exam. KUB COMMENT: Dilated loops of small and large bowel compatible with ileus not significantly changed in the interval from the previous exam. There is an NG tube present within the stomach. KUB: COMMENT: Dilated loops small and large bowel not significant changed in the interval from the previous exam. Size compatible with small large bowel ileus. There is an NG tube present with position. at 1210 Reported and signed by: Baljeet Schilling MD CC: Ric Gaming MD; Noam Holm MD Technologist: EDMUNDO BENEDICT (RT.R) Transcribed D/ (1010) BlanquitaGVG [facility] [address] [facility] MD : 1950 AGE: 70 SEX: M [place], [place] [address] LOC: Y.512 A PHONE #: [phone] EXAM DATE: 06/26/2020 STATUS: ADM IN FAX #: [phone] RAD #: D/C DT PAGE 1 Signed Report Patient Name: ALETA SUMNER JR Unit No: [id number] EXAMS: CPT CODE: [id number] XR ABDOMEN 1 V 77612 <Continued> Orig Print D/T: S: 06/27/2020 (0871) [facility] NAME: ALETA SUMNER JR [address] [facility] [address] PHYS: Noam Villa MD : 1950 AGE: 70 SEX: M [place] [address] LOC: Y.512 A PHONE #: [phone] EXAM DATE: 06/26/2020 STATUS: ADM IN FAX #: [phone] RAD #: D/C DTPAGE 2 Signed Report- XR ABDOMEN 1 [id number] 12:10[facility]00[facility] 1950 Sex: M Patient Name: ALETA SUMNER JR Unit No: [id number] EXAMS: CPT CODE: [id number] XR ABDOMEN 1 V 27375 KUB: COMMENT: Dilated loops of small large b owel are compatible with a small large bowel ileus. KUB: COMMENT: Dilated loops of small and large bowel compatible with small large bowel ileus. This is not significantly changed from previous exam. KUB COMMENT: Dilated loops of small and large bowel compatible with ileus not significantly changed in the interval from the previous exam. There is an NG tube present within the stomach. KUB: COMMENT: Dilated loops small and large bowel not significant changed in the interval from the previous exam. Size compatible with small large bowel ileus. There is an NG tube present with position. at 1210 Reported and signed by: Baljeet Schilling MD CC: Ric Gaming MD; Noam Holm MD Technologist: Brianna Agudelo RT.(R) Transcribed D/ (1210) t.SDR.GVG [facility] [address] [facility] MD : 1950 AGE: 70 SEX: M [place] [address] LOC: Y.512 A PHONE #: [phone] EXAM DATE: 06/25/2020 STATUS: ADM IN FAX #: [phone] RAD #: D/C DT PAGE 1 Signed Report Patient Name: ALETA SUMNER JR Unit No: [id number] EXAMS: CPT CODE: [id number] XR ABDOMEN 1 V 86690 <Continued> Orig Print D/T: S: 06/27/2020 (1213) [facility] NAME: ALETA SUMNER [address] [facility] PHYS: Noam Villa MD : 1950 AGE: 70 SEX: M [place] [address] LOC: Y.512 A PHONE #: [phone] EXAM DATE: 06/25/2020 STATUS: ADM IN FAX #: [phone] RAD #: D/C DTPAGE 2 Signed Report- XR ABDOMEN 1 [id number] 12:10:00[facility] 1950 Sex: M Patient Name: ALETA SUMNER JR Unit No: [id number] EXAMS: CPT CODE: [id number] XR ABDOMEN 1 V 21828 KUB: COMMENT: Dilated loops of small large b owel are compatible with a small large bowel ileus. KUB: COMMENT: Dilated loops of small and large bowel compatible with small large bowel ileus. This is not significantly changed from previous exam. KUB COMMENT: Dilated loops of small and large bowel compatible with ileus not significantly changed in the interval from the previous exam. There is an NG tube present within the stomach. KUB: COMMENT: Dilated loops small and large bowel not significant changed in the interval from the previous exam. Size compatible with small large bowel ileus. There is an NG tube present with position. at 1210 Reported and signed by: Baljeet Schilling MD CC: Ric Gaming MD; Noam Holm MD Technologist: Brianna Agudelo RT.(R) Transcribed D/ (1210) t.ZULEYMAR.GVG [facility] NAME: [facility] [address] [facility] Naom Villa MD : 1950 AGE: 70 SEX: M [place], [place] [address] LOC: Y.512 A PHONE #: [phone] EXAM DATE: 06/24/2020 STATUS: ADM IN FAX #: [phone] RAD #: D/C DT PAGE 1 Signed Report Patient Name: ALETA SUMNER JR Unit No: [id number] EXAMS: CPT CODE: [id number] XR ABDOMEN 1 V 85502 <Continued> Orig Print D/T: S: 06/27/2020 (1213) [facility] NAME: ALETA SUMNER [address] [facility] [address] PHYS: Noam Villa MD : 1950 AGE: 70 SEX: M [place], [place] [address] LOC: Y.512 A PHONE #: [phone] EXAM DATE: 06/24/2020 STATUS: ADM IN FAX #: [phone] RAD #: D/C DTPAGE 2 Signed Report- XR ABDOMEN 1 [id number] 12:10:00[facility] : 1950 Sex: M Patient Name: ALETA SUMNER JR Unit No: [id number] EXAMS: CPT CODE: [id number] XR ABDOMEN 1 V 97130 KUB: COMMENT: Dilated loops of small large b owel are compatible with a small large bowel ileus. KUB: COMMENT: Dilated loops of small and large bowel compatible with small large bowel ileus. This is not significantly changed from previous exam. KUB COMMENT: Dilated loops of small and large bowel compatible with ileus not significantly changed in the interval from the previous exam. There is an NG tube present within the stomach. KUB: COMMENT: Dilated loops small and large bowel not significant changed in the interval from the previous exam. Size compatible with small large bowel ileus. There is an NG tube present with position. at 1210 Reported and signed by: Baljeet Schilling MD CC: Ric Gaming MD; Noam Holm MD Technologist: Brianna Agudelo RT.(R) Transcribed D/ (1210) t.SDR.GVG [facility] NAME: [facility] [address] [facility] : 1950 AGE: 70 SEX: M [place] [address] LOC: Y.512 A PHONE #: [phone] EXAM DATE: 06/24/2020 STATUS: ADM IN FAX #: [phone] RAD #: D/C DT PAGE 1 Signed Report Patient Name: ALETA SUMNER JR Unit No: [id number] EXAMS: CPT CODE: [id number] XR ABDOMEN 1 V 77813 <Continued> Orig Print D/T: S: 06/27/2020 (1213) [facility] NAME: ALETA SUMNER JR [address] [facility] PHYS: Noam Villa MD : 1950 AGE: 70 SEX: M [place] [address] LOC: Y.512 A PHONE #: [phone] EXAM DATE: 06/24/2020 STATUS: ADM IN FAX #: [phone] RAD #: D/C DTPAGE 2 Signed Report- XR ABDOMEN 1 [id number] 07:00:00[facility] : 1950 Sex: M Patient Name: ALETA SUMNER JR Unit No: [id number] EXAMS: CPT CODE: [id number] XR ABDOMEN 1 V 98898 KUB COMMENT: Comparison is made with the pre vious examination of June 26, 2020. On the current examination there is no change in the large and small bowel distention most consistent with an ileus. No free air is seen. at 0700 Reported and signed by: Gino Ching MD CC: Ric Gaming MD; Noam Holm MD Technologist: EDMUNDO BENEDICT (RT.R) Transcribed D/ (0700) [id number] [facility] NAME: ALETA SUMNER JR [address] [facility] PHYS: Noam Villa MD : 1950 AGE: 70 SEX: M [place] [address] LOC: Y.512 A PHONE #: [phone] EXAM DATE: 06/27/2020 STATUS: ADM IN FAX #: [phone] RAD #: D/C DT PAGE 1 Signed Report Patient Name: ALETA SUMNER JR Unit No: [id number] EXAMS: CPT CODE: [id number] XR ABDOMEN 1 V 08174 <Continued> Orig Print D/T: S: 06/27/2020 (0704) [facility] NAME: ALETA SUMNER JR [address] [facility] PHYS: Noam Villa MD : 1950 AGE: 70 SEX: M [place], [place] [address] LOC: Y.512 A PHONE #: [phone] EXAM DATE: 06/27/2020 STATUS: ADM IN FAX #: [phone] RAD #: D/C DT PAGE 2 Signed ReportBASIC METABOLIC PANEL 2020-06-27 06:16:00 Test Item Value Reference Range Interpretation Comments SODIUM (test code = 147 mmol/L 136-145 H NA) POTASSIUM (test code = 3.0 mmol/L 3.5-5.1 L K) CHLORIDE (test code = 108.0 mmol/L 98-107 H CL) CARBON DIOXIDE (test 26.6 mmol/L 21-32 N code = CO2) GLUCOSE (test code = 96 mg/dL 70-110 N GLU) BLOOD UREA NITROGEN 15 mg/dL 7-18 N (test code = BUN) GLOMERULAR FILTRATION 75.2 >60 Unit o f measure: RATE (test code = GFR) mL/mi n/1.73 h9Wrakounpz Range:Healthy Adults >90 mL/min/1.73 m2 For Chronic Kidney Disease: St age II Mild Decrease in GFR 60-90 St age III Moderate Decrease in GFR 30-59 Stage IV Severe Decre ase in GFR 15- 29 Stage V Kidney Failure <15 CREATININE (test code 0.98 mg/dL 0.55-1.30 N = CREAT) CALCIUM (test code = 7.5 mg/dL 8.2-10.1 L CA) [id number] 06:16:00 Test Item Value Reference Range Interpretation Comments MAGNESIUM (test code = MAG) 2.1 mg/dL 1.8-2.4 N [id number] 20:26:00 Test Item Value Reference Range Interpretation Comments GLUBED (test code = GLUBED) 95 mg/dL 60-125 N BASIC METABOLIC [id number] 06:58:00 Test Item Value Reference Range Interpretation Comments SODIUM (test code = 146 mmol/L 136-145 H NA) POTASSIUM (test code = 3.2 mmol/L 3.5-5.1 L K) CHLORIDE (test code = 109.0 mmol/L 98-107 H CL) CARBON DIOXIDE (test 29.7 mmol/L 21-32 N code = CO2) GLUCOSE (test code = 95 mg/dL 70-110 N GLU) BLOOD UREA NITROGEN 17 mg/dL 7-18 N (test code = BUN) GLOMERULAR FILTRATION 66.5 >60 Unit o f measure: RATE (test code = GFR) mL/mi n/1.73 m6Etlhormym Range:Healthy Adults >90 mL/min/1.73 m2 For Chronic Kidney Disease: St age II Mild Decrease in GFR 60-90 St age III Moderate Decrease in GFR 30-59 Stage IV Severe Decre ase in GFR 15- 29 Stage V Kidney Failure <15 CREATININE (test code 1.09 mg/dL 0.55-1.30 N = CREAT) CALCIUM (test code = 7.6 mg/dL 8.2-10.1 L CA) [id number] 06:58:00 Test Item Value Reference Range Interpretation Comments MAGNESIUM (test code = MAG) 2.3 mg/dL 1.8-2.4 N CBC W/AUTO [id number] 06:18:00 Test Item Value Reference Range Interpretation Comments WHITE BLOOD CELL (test code = WBC) 6.3 K/mm3 5.7-10.5 N RED BLOOD CELL (test code = RBC) 3.30 M/mm3 4.2-5.4 L HEMOGLOBIN (test code = HGB) 10.5 g/dL 12-16 L HEMATOCRIT (test code = HCT) 32.0 % 37-47 L MEAN CELL VOLUME (test code = MCV) 97 fL 80-98 N MEAN CELL HGB (test code = MCH) 31.8 pg 27-34 N MEAN CELL HGB CONCENTRATION (test 32.8 g/dL 30.8-34.1 N code = MCHC) RED CELL DISTRIBUTION WIDTH (test 13.6 % 11-16 N code = RDW) PLT (test code = PLT) 105 K/mm3 130-400 L MEAN PLATELET VOLUME (test code = 12.9 fL 8.9-12.1 H MPV) NEUTROPHIL % (test code = NT%) 78.1 % 45-70 H LYMPHOCYTE % (test code = LY%) 11.6 % 20-40 L MONOCYTE % (test code = MO%) 9.2 % 3-10 N EOSINOPHIL % (test code = EO%) 0.6 % 1-5 L BASOPHIL % (test code = BA%) 0.2 % 0.0-1.1 N NEUTROPHIL # (test code = NT#) 4.92 K/mm3 2.00-7.50 N LYMPHOCYTE # (test code = LY#) 0.73 K/mm3 1.50-4.00 L MONOCYTE # (test code = MO#) 0.58 K/mm3 0.2-0.8 N EOSINOPHIL # (test code = EO#) 0.04 K/mm3 0.04-0.4 N BASOPHIL # (test code = BA#) 0.01 K/mm3 0.02-0.10 L MANUAL DIFF REQUIRED (test code = NO MANUAL DIFF MDIFF) NUCLEATED RED BLOOD CELL (test 0 % 0-0 N code = NRBC) BASIC METABOLIC [id number] 08:14:00 Test Item Value Reference Range Interpretation Comments SODIUM (test code = NA) 145 mEq/L 135-145 N POTASSIUM (test code = K) 3.4 mEq/L 3.5-5.0 L CHLORIDE (test code = CL) 108 mEq/L 100-115 N CARBON DIOXIDE (test code = CO2) 27 mEq/L 22-31 N GLUCOSE (test code = GLU) 96 mg/dL 65-110 N BLOOD UREA NITROGEN (test code = 18 mg/dL 7-18 N BUN) GLOMERULAR FILTRATION RATE (test 66 ml/min >60 N code = GFR) CREATININE (test code = CREAT) 1.1 mg/dL 0.7-1.3 N CALCIUM (test code = CA) 7.7 mg/dL 8.4-10.2 L BASIC METABOLIC [id number] 08:14:00 Test Item Value Reference Range Interpretation Comments SODIUM (test code = NA) 145 mEq/L 135-145 POTASSIUM (test code = 3.4 mEq/L 3.5-5.0 L K) CHLORIDE (test code = 108 mEq/L 100-115 CL) CARBON DIOXIDE (test 27 mEq/L 22-31 code = CO2) GLUCOSE (test code = 96 mg/dL 65-110 GLU) BLOOD UREA NITROGEN 18 mg/dL 7-18 (test code = BUN) GLOMERULAR FILTRATION 65.8 >60 Unit o f measure: RATE (test code = GFR) mL/mi n/1.73 q7Havycilrs Range:Healthy A dults >90 mL/min/1.73 m2 For Chronic Kidney Disease: St age II Mild Decrea se in GFR 60-9 0 Stage III Mo derate Decrease in GFR 30-59 Stage IV Severe Decreas e in GFR 15-29 Stage V Ki dney Failure <15Unit of jaime ure: mL/min/1.73 h7Kqbvvscsq Range:Healthy A dults >90 mL/min/1.73 m2 For Chronic Kidney Disease: St age II Mild Decrea se in GFR 60-9 0 Stage III Mo derate Decrease in GFR 30-59 Stage IV Severe Decreas e in GFR 15-29 Stage V Ki dney Failure <15 CREATININE (test code = 1.1 mg/dL 0.7-1.3 CREAT) CALCIUM (test code = 7.7 mg/dL 8.4-10.2 L CA) BASIC METABOLIC [id number] 08:08:00 Test Item Value Reference Range Interpretation Comments SODIUM (test code = NA) mEq/L 135-145 POTASSIUM (test code = K) mEq/L 3.5-5.0 CHLORIDE (test code = CL) mEq/L 100-115 CARBON DIOXIDE (test code = CO2) 27 mEq/L 22-31 N GLUCOSE (test code = GLU) 96 mg/dL 65-110 N BLOOD UREA NITROGEN (test code = 18 mg/dL 7-18 N BUN) GLOMERULAR FILTRATION RATE (test 66 ml/min >60 N code = GFR) CREATININE (test code = CREAT) 1.1 mg/dL 0.7-1.3 N CALCIUM (test code = CA) 7.7 mg/dL 8.4-10.2 L BASIC METABOLIC [id number] 08:08:00 Test Item Value Reference Range Interpretation Comments SODIUM (test code = NA) mmol/L 136-145 POTASSIUM (test code = mmol/L 3.5-5.1 K) CHLORIDE (test code = mmol/L 98-107 CL) CARBON DIOXIDE (test 27 mEq/L 22-31 code = CO2) GLUCOSE (test code = 96 mg/dL 65-110 GLU) BLOOD UREA NITROGEN 18 mg/dL 7-18 (test code = BUN) GLOMERULAR FILTRATION 65.8 >60 Unit o f measure: RATE (test code = GFR) mL/mi n/1.73 [id number] Range:Healthy A dults >90 mL/min/1.73 m2 For Chronic Kidney Disease: St age II Mild Decrea se in GFR 60-9 0 Stage III Mo derate Decrease in GFR 30-59 Stage IV Severe Decreas e in GFR 15-29 Stage V Ki dney Failure <15Unit of jaime ure: mL/min/1.73 [id number] Range:Healthy A dults >90 mL/min/1.73 m2 For Chronic Kidney Disease: St age II Mild Decrea se in GFR 60-9 0 Stage III Mo derate Decrease in GFR 30-59 Stage IV Severe Decreas e in GFR 15-29 Stage V Ki dney Failure <15 CREATININE (test code = 1.1 mg/dL 0.7-1.3 CREAT) CALCIUM (test code = 7.7 mg/dL 8.4-10.2 L CA) CBC W/AUTO [id number] 07:36:00 Test Item Value Reference Range Interpretation Comments WHITE BLOOD CELL (test 8.4 K/mm3 4.5-11.2 DONE AT: [facility] code = WBC) [facility] [address] [facility], [place] [address] RED BLOOD CELL (test 3.31 M/mm3 3.42-5.20 L code = RBC) HEMOGLOBIN (test code = 10.4 g/dL 10.2-14.9 HGB) HEMATOCRIT (test code = 32.8 % 31.3-44.8 HCT) MEAN CELL VOLUME (test 99.1 fL 81-95 H code = MCV) MEAN CELL HGB (test 31.4 pg 27-34 code = MCH) MEAN CELL HGB 31.7 gm/dL 32-35 L CONCENTRATION (test code = MCHC) RED CELL DISTRIBUTION 14.1 % 11.8-14.8 WIDTH (test code = RDW) PLT (test code = PLT) 115 K/mm3 135-380 L MEAN PLATELET VOLUME 13.3 fL 9.1-12.7 H (test code = MPV) NEUTROPHIL % (test code 82.1 % 51.5-79.7 H = NT%) LYMPHOCYTE % (test code 8.5 % 14-40 L = LY%) MONOCYTE % (test code = 9.1 % 4.0-10.2 MO%) EOSINOPHIL % (test code 0 % 0-4.1 = EO%) BASOPHIL % (test code = 0.1 % 0.1-0.7 BA%) NEUTROPHIL # (test code 6.9 K/mm3 See_Comment [Au tomated message] = NT#) The system [employer] generated this result transmit lisbeth reference range : (). The reference r dani was not used to interpret this result as normal/abnormal . LYMPHOCYTE # (test code 0.7 K/mm3 See_Comment [Au tomated message] = LY#) The system [employer] generated this result transmit lisbeth reference range : (). The reference r dani was not used to interpret this result as normal/abnormal . MONOCYTE # (test code = 0.8 K/mm3 See_Comment [Au tomated message] MO#) The system [employer] generated this result transmit lisbeth reference range : (). The reference r dani was not used to interpret this result as normal/abnormal . EOSINOPHIL # (test code 0 K/mm3 See_Comment [Au tomated message] = EO#) The system [employer] generated this result transmit lisbeth reference range : (). The reference r dani was not used to interpret this result as normal/abnormal . BASOPHIL # (test code = 0 K/mm3 See_Comment [Au tomated message] BA#) The system [employer] generated this result transmit lisbeth reference range : (). The reference r dani was not used to interpret this result as normal/abnormal . PLATELET MORPHOLOGY NORMAL NORMAL REQUIRED (test code = PLTMR) CBC W/AUTO [id number] 07:35:00 Test Item Value Reference Range Interpretation Comments WHITE BLOOD CELL (test code = WBC) 8.4 K/mm3 4.5-11.2 N RED BLOOD CELL (test code = RBC) 3.31 M/mm3 3.42-5.20 L HEMOGLOBIN (test code = HGB) 10.4 g/dL 10.2-14.9 N HEMATOCRIT (test code = HCT) 32.8 % 31.3-44.8 N MEAN CELL VOLUME (test code = MCV) 99.1 fL 81-95 H MEAN CELL HGB (test code = MCH) 31.4 pg 27-34 N MEAN CELL HGB CONCETRATION (test 31.7 gm/dL 32-35 L code = MCHC) RED CELL DISTRIBUTION WIDTH (test 14.1 % 11.8-14.8 N code = RDW) PLATELET COUNT (test code = PLT) 115 K/mm3 135-380 L MEAN PLATELET VOLUME (test code = 13.3 fL 9.1-12.7 H MPV) NEUTROPHIL % (test code = NT%) 82.1 % 51.5-79.7 H LYMPHOCYTE % (test code = LY%) 8.5 % 14-40 L MONOCYTE % (test code = MO%) 9.1 % 4.0-10.2 N EOSINOPHIL % (test code = EO%) 0.0 % 0-4.1 N BASOPHIL % (test code = BA%) 0.1 % 0.1-0.7 N NEUTROPHIL # (test code = NT#) 6.9 K/mm3 LYMPHOCYTE # (test code = LY#) 0.7 K/mm3 MONOCYTE # (test code = MO#) 0.8 K/mm3 EOSINOPHIL # (test code = EO#) 0 K/mm3 BASOPHIL # (test code = BA#) 0.0 K/mm3 RBC MORPHOLOGY REQUIRED (test code NORMAL NORMAL = RBCM) PLATELET MORPHOLOGY REQUIRED (test NORMAL NORMAL code = PLTMR) HGB [id number] 06:43:00 Test Item Value Reference Range Interpretation Comments HEMOGLOBIN (test code = HGB) 10.4 g/dL 12-16 L HEMATOCRIT (test code = HCT) 31.9 % 37-47 L HGB [id number] 05:57:00 Test Item Value Reference Range Interpretation Comments HEMOGLOBIN (test code = HGB) 11.7 g/dL 12-16 L HEMATOCRIT (test code = HCT) 35.8 % 37-47 L - XR SPINE 1 V SPEC [id number] 11:55:00 [facility] 1950 Sex: M Patient Name: ALETA SUMNER Unit No: [id number] EXAMS: CPT CODE: [id number] XR SPINE 1 V SPEC LEVEL [id number] Single LATERAL INTRAOPERATIVE VIEWS OF THE LUMBAR SPINE Film 1: Metal markers overlie the soft tissues posterior to L5 and L1. at 1155 Reported and signed by: Baljeet Schilling MD CC: Ric Gaming MD Technologist: REYNALDO UNDERWOOD RT(R) Transcribed D/T: 06/02 (1155) [facility] NAME: ALETA SUMNER JR [address] [facility] PHYS: Ric Ochoa : 1950 AGE: 70 SEX: M [place] [address] LOC: Y.998 6 PHONE #: [phone] EXAM DATE: 06/22/2020 STATUS: ADM IN FAX #: [phone] RAD #: D/C DTPAGE 1 Signed Report Patient Name: ALETA SUMNER JR Unit No: [id number] EXAMS: CPT CODE: [id number] XR SPINE 1 V SPEC LEVEL [id number] <Continue d> Orig Print D/T: S: 06/22/2020 (1158) [facility] NAME: ALETA SUMNER JR [address] [facility] PHYS: Ric Ochoa : 1950 AGE: 70 SEX: M [place] [address] LOC: Y.998 6 PHONE #: [phone] EXAM DATE: 06/22/2020 STATUS: ADM IN FAX #: [phone] RAD #: D/C DT PAGE 2 Signed Report PROTHROMBIN [id number] 11:54:00 Test Item Value Reference Range Interpretation Comments PROTHROMBIN TIME 13.3 secs 10.1-12.5 H PATIENT (test code = PTP) INTERNATIONAL NORMAL 1.17 <2.0 RECOMME NDED THERAPEUTIC RATIO (test code [...] v lomas IS PATIENT ON ANTICOAGULANTS ? [facility] been notified if Patient is on Heparin Drip? NOTHROMBOPLASTIN TIME [id number] 11:54:00 Test Item Value Reference Range Interpretation Comments PTT ACTIVATED (test code = APTT) 34.3 secs 24.9-37.0 N IS PATIENT ON ANTICOAGULANTS ? [facility] been notified if Patient is on Heparin Drip? NOBASIC METABOLIC [id number] 11:54:00 Test Item Value Reference Range Interpretation Comments SODIUM (test code = 143 mmol/L 136-145 N NA) POTASSIUM (test code = 4.8 mmol/L 3.5-5.1 N K) CHLORIDE (test code = 105.0 mmol/L 98-107 N CL) CARBON DIOXIDE (test 30.2 mmol/L 21-32 N code = CO2) GLUCOSE (test code = 94 mg/dL 70-110 N GLU) BLOOD UREA NITROGEN 21 mg/dL 7-18 H (test code = BUN) GLOMERULAR FILTRATION 58.9 >60 Unit o f measure: RATE (test code = GFR) mL/mi n/1.73 [id number] Range:Healthy Adults >90 mL/min/1.73 m2 For Chronic Kidney Disease: St age II Mild Decrease in GFR 60-90 St age III Moderate Decrease in GFR 30-59 Stage IV Severe Decre ase in GFR 15- 29 Stage V Kidney Failure <15 CREATININE (test code 1.21 mg/dL 0.55-1.30 N = CREAT) CALCIUM (test code = 8.6 mg/dL 8.2-10.1 N CA) CBC W/AUTO [id number] 11:34:00 Test Item Value Reference Range Interpretation Comments WHITE BLOOD CELL (test code = WBC) 6.7 K/mm3 5.7-10.5 N RED BLOOD CELL (test code = RBC) 4.48 M/mm3 4.2-5.4 N HEMOGLOBIN (test code = HGB) 13.9 g/dL 12-16 N HEMATOCRIT (test code = HCT) 43.2 % 37-47 N MEAN CELL VOLUME (test code = MCV) 96 fL 80-98 N MEAN CELL HGB (test code = MCH) 31.0 pg 27-34 N MEAN CELL HGB CONCENTRATION (test 32.2 g/dL 30.8-34.1 N code = MCHC) RED CELL DISTRIBUTION WIDTH (test 13.5 % 11-16 N code = RDW) PLT (test code = PLT) 182 K/mm3 130-400 N MEAN PLATELET VOLUME (test code = 12.0 fL 8.9-12.1 N MPV) NEUTROPHIL % (test code = NT%) 70.6 % 45-70 H LYMPHOCYTE % (test code = LY%) 19.3 % 20-40 L MONOCYTE % (test code = MO%) 8.1 % 3-10 N EOSINOPHIL % (test code = EO%) 1.3 % 1-5 N BASOPHIL % (test code = BA%) 0.4 % 0.0-1.1 N NEUTROPHIL # (test code = NT#) 4.70 K/mm3 2.00-7.50 N LYMPHOCYTE # (test code = LY#) 1.29 K/mm3 1.50-4.00 L MONOCYTE # (test code = MO#) 0.54 K/mm3 0.2-0.8 N EOSINOPHIL # (test code = EO#) 0.09 K/mm3 0.04-0.4 N BASOPHIL # (test code = BA#) 0.03 K/mm3 0.02-0.10 N MANUAL DIFF REQUIRED (test code = NO MANUAL DIFF MDIFF) NUCLEATED RED BLOOD CELL (test 0 % 0-0 N code = NRBC) Novel Coronavirus 2018 [id number] 06:22:00 Test Item Value Reference Range Interpretation Comments Novel Coronavirus Negative Negative Positive r esults are 2019 Inhouse (test indicativ e of the presence code = COVNONPUI) ofSARS-CoV -2 RNA, clinical correlation wit h patient historyand othe r diagnostic info rmation is necessary to determinepatien t infection status. Positiv e results do not rule out bacterial infection or co -infection with other viru ses. Negative result s do not preclude SARS-C oV-2 infection andsh ould not be used as the leora e basis for patient managementdecis ions. Negative result s must be combined with otherclinical observations, p atient history, and epidemiological information . Detection of SARS-CoV-2 RNA may be affe cted bysample collec tion methods, storag e conditions, and /or stageof infection. Natalia l RNA mutations, vacc inations, antiviraltherap eutics, antibiotics, chemotherapeuti c orimmunosuppres derrell drugs have not been e valuated for effectson d etection. Results are for the identification of SARS-CoV-2 RNA usingthe Controlus M2000 Sy stem under the [facility] Emergen cy UseAuthorizatio n. The testing is perf ormed by personneltraine d in the procedures for the Tan M2000 molecular diagnostic SARS-CoV-2 assa y in vitro. Novel Coronavirus 2018 [id number] 06:21:00 Test Item Value Reference Range Interpretation Comments Novel Coronavirus Negative Negative Positive r esults are 2019 Inhouse (test indicativ e of the presence code = COVNONPUI) ofSARS-CoV -2 RNA, clinical correlation wit h patient historyand othe r diagnostic info rmation is necessary to determinepatien t infection status. Positiv e results do not rule out bacterial infection or co -infection with other viru ses. Negative result s do not preclude SARS-C oV-2 infection andsh ould not be used as the leora e basis for patient managementdecis ions. Negative result s must be combined with otherclinical observations, p atient history, and epidemiological information . Detection of SARS-CoV-2 RNA may be affe cted bysample collec tion methods, storag e conditions, and /or stageof infection. Natalia l RNA mutations, vacc inations, antiviraltherap eutics, antibiotics, chemotherapeuti c orimmunosuppres derrell drugs have not been e valuated for effectson d etection. Results are for the identification of SARS-CoV-2 RNA usingthe Tan M2000 Sy stem under the FDA Emergen cy UseAuthorizatio n. The testing is perf ormed by personneltraine d in the procedures for the Tan M2000 molecular diagnostic SARS-CoV-2 assa y in vitro. BASIC METABOLIC [id number] 19:18:00 Test Item Value Reference Range Interpretation Comments SODIUM (test code = 142 mmol/L 136-145 N NA) POTASSIUM (test code = 4.1 mmol/L 3.5-5.1 N K) CHLORIDE (test code = 107.0 mmol/L 98-107 N CL) CARBON DIOXIDE (test 25.3 mmol/L 21-32 N code = CO2) GLUCOSE (test code = 103 mg/dL 70-110 N GLU) BLOOD UREA NITROGEN 25 mg/dL 7-18 H (test code = BUN) GLOMERULAR FILTRATION 51.5 >60 Unit o f measure: RATE (test code = GFR) mL/mi n/1.73 [id number] Range:Healthy Adults >90 mL/min/1.73 m2 For Chronic Kidney Disease: St age II Mild Decrease in GFR 60-90 St age III Moderate Decrease in GFR 30-59 Stage IV Severe Decre ase in GFR 15- 29 Stage V Kidney Failure <15 CREATININE (test code 1.36 mg/dL 0.55-1.30 H = CREAT) CALCIUM (test code = 8.0 mg/dL 8.2-10.1 L CA) PROTHROMBIN [id number] 18:37:00 Test Item Value Reference Range Interpretation [...] Patient is on Heparin Drip? NOTHROMBOPLASTIN TIME [id number] 18:37:00 Test Item Value Reference Range Interpretation [...] 0 % 0-0 N code = NRBC) NM CT SPECT (EG, HEAD, NECK, CHEST, PELVIS) SINGLE AREA [[id number]]2020-03-31 12:15:55[facility] : 1950 Sex: MCLINICAL INDICATION: M99.33 Osseous stenosis of neural canal of lumbar regionMODALITY: Discovery NM/CT 670TECHNIQUE: 25 mCi Tc 99m MDP are injected IV. After a suitable time delay, whole body imaging images were obtained. SPECT imaging of the lumbar spine is performed with computer and physician-assisted 2-D and 3-D reconstruction. Co-registered low dose limited diagnostic CT images are obtained at the level of SPECT imaging.Computed Tomography Dose Index: 5.44 mGy.FINDINGS:COMPARISON: Fusion CT exam.CT Comments: None.Symmetric bilateral renal function is observed.Mild to moderate arthritic uptake is noted bilateral shoulders and hips. Moderate uptake is seen at the right first MTP joint. Mild mid thoracic spondylosis is observed. NoSPECT CT fusion imaging of the lumbar spine demonstrates moderate uptake diffusely at the L5-S1 intervertebral disc, at least moderate uptake right lateral L4-5 intervertebral disc. Mild left L3-4 facet uptake, mild to moderate right L3-4 and right L4-5 facet uptake are otherwise noted.IMPRESSION:See comments above.PQRS 147: 3570F- XR FLUORO FOR SPINE [id number] 17:00:00 [facility] 1950 Sex: M Patient Name: ALETA SUMNER Unit No: [id number] EXAMS: CPT CODE: [id number] XR FLUORO FOR SPINE INJ 94461 LUMBAR EPIRADICULAR INJECTION REFERRAL PHYSICIAN: None PREOPERATIVE [...] taken to the PACU in good condition. Electronically Signed by Michelle Fuchs on 05/2019 at 1700 Reported and signed by: Vikas Fuchs M.D. CC: Vikas Fuchs MD Technologist: VIKI LEVIN RT(R) Transcribed D/ (1700) [facility] NAME: JOSE CARLOSALETA HENRIQUEZ [address] [facility] PHYS: Vikas Finch MD [place], [place] [address] : 1950 AGE: 69 SEX: M LOC: RickyTREVIN PHONE #: [phone] EXAM DATE: 01/04/2020 STATUS: [place] [facility] FAX #: [phone] RAD #: D/C DT PAGE 1 Signed Report Patient Name: ALETA SUMNER JR Unit No: [id number] EXAMS: CPT CODE: [id number] XR FLUORO FOR SPINE INJ [id number] <Continued> Orig Print D/T: S: 01/04/2020 (1703) [facility] NAME: ALETA SUMNER JR [address] [facility] PHYS: Vikas Finch MD [place], [place] [address] : 1950 AGE: 69 SEX: M LOC: ANY PHONE #: [phone] EXAM DATE: 01/04/2020 STATUS: [place] [facility] [place] #: [phone] RAD #: D/C DT PAGE 2 Signed Report- MRI L-SPINE W/O [id number] 08:21:00 Patient Name: ALETA SUMNER Unit No: [id number] EXAMS: CPT CODE: [id number] MRI L-SPINE W/O CONT 78512 TECHNIQUE: Multiplanar, multisequence MRI examination performed of the lumbar spine without intravenous contrast material. COMPARISON: None available. FINDINGS: Five lumbar type vertebra are assumed. Alignment: Grade 1retrolisthesis of L5-S1 Bone Lesion: Small hemangiomas are [...] nerve. Facet hypertrophy and ligamentum flavum thickening contr ibute to gaig-iu-zyopoatq central canal stenosis. Mild left, moderate right [...] M.D. CC: Ric Gaming MD Technologist: TIFFANIE FORD, VIKRAM Transcribed D/ (820) [facility] NAME: ALETA SUMNER [address] PHYS: Ric Ochoa : 1950 AGE: 69 SEX: M [place] [address] LOC: Y.MRI PHONE #: [phone] EXAM DATE: 12/07/2019 STATUS: DEP CLI FAX #: [phone] RAD #: D/C DT PAGE 1 Signed Report Patient Name: ALETA SUMNER Unit No: [id number] EXAMS: CPT CODE: [id number] MRI L-SPINE W/O CONT 53686 <Continued> Orig Print D/T: S: 12/08/2019 (824) [facility] NAME: ALETA SUMNER [address] PHYS: Ric Ochoa : 1950 AGE: 69 SEX: M [place] [address] LOC: Y.MRI PHONE #: [phone] EXAM DATE: 12/07/2019 STATUS: DEP CLI FAX #: [phone] RAD #: D/C DT PAGE 2 Signed Report
--- NOTE | 2021-01-28 16:31 | ER ---
Nurse's Notes [facility] Name: Job Branch Jr Age: 70 yrs Sex: Male : 1950 Arrival Date: 01/28/2021 Time: 14:31 Bed 10 Private MD: Jens Robbins T Diagnosis: Allergic rhinitis, unspecified Presentation: 01/28 14:56 Chief complaint: Patient states: sore throat and drainage since Friday , tries to cough iw drainage up. Coronavirus screen: Client presents with at least one sign or symptom that may indicate coronavirus-19. Ebola Screen: Patient negative for fever greater than or equal to 101.5 degrees Fahrenheit, and additional compatible Ebola Virus Disease symptoms Patient denies exposure to infectious person. Patient denies travel to an Ebola-affected area in the 21 days before illness onset. No symptoms or risks identified at this time. Initial Sepsis Screen: Does the patient meet any 2 criteria? No. Patient's initial sepsis screen is negative. Does the patient have a suspected source of infection? No. Patient's initial sepsis screen is negative. Risk Assessment: Do you want to hurt yourself or someone else? Patient reports no desire to harm self or others. Onset of symptoms was January 23, 2021. 14:56 Method Of Arrival: Ambulatory iw 14:56 Acuity: SOLANGE 4 iw Triage Assessment: 16:53 General: Appears in no apparent distress. Behavior is calm, cooperative. iw Historical: - Allergies: 14:57 Tequins; iw 14:57 tramadol; iw - Home Meds: 14:57 Diovan Oral [Active]; iw - PMHx: 14:57 Hypertension; iw - PSHx: 14:58 back; iw 14:59 Appendectomy; iw - Immunization history:: Client reports receiving the 2nd dose of the Covid vaccine. - Social history:: Smoking status: Patient denies any tobacco usage or history of. Screenin:53 Abuse screen: Denies threats or abuse. Denies injuries from another. Nutritional iw screening: No deficits noted. Tuberculosis screening: No symptoms or risk factors identified. Fall Risk None identified. Assessment: 16:00 General: Appears in no apparent distress. Behavior is calm, cooperative. Pain: iw Complains of pain in throat. Neuro: Level of Consciousness is awake, alert, obeys commands, Oriented to person, place, time, situation, Moves all extremities. Full function. Respiratory: Airway is patent Respiratory effort is even, Breath sounds are clear bilaterally. EENT: Throat is clear. Vital Signs: 14:56 BP 141 / 98; Pulse 73; Resp 16 S; Temp 98.0; Pulse Ox 98% on R/A; Weight 133.81 kg; iw Height 5 ft. 11 in. (180.34 cm); 14:56 Body Mass Index 41.14 (133.81 kg, 180.34 cm) iw ED Course: 14:31 Patient arrived in ED. as 14:31 Jens Robbins MD is Private Physician. as 14:57 Triage completed. iw 14:58 Arm band placed on. iw 14:59 Claribel Rodrigez FNP-C is PHCP. kb 14:59 Taz Thakur MD is Attending Physician. kb 15:28 Damari Jansen, RN is Primary Nurse. iw 16:00 Patient has correct armband on for positive identification. iw 16:53 No provider procedures requiring assistance completed. Patient did not have IV access iw during this emergency room visit. Administered Medications: No medications were administered Outcome: 16:30 Discharge ordered by MD. kb 16:53 Discharged to home ambulatory. iw 16:53 Condition: good 16:53 Discharge instructions given to patient, Instructed on discharge instructions, follow up and referral plans. Demonstrated understanding of instructions, follow-up care. 16:54 Patient left the ED. iw Signatures: Claribel Rodrigez FNP-C FNP-Gayle Garcia as Damari Jansen, RN RN iw Corrections: (The following items were deleted from the chart) 14:59 14:56 Resp 16bpm; Spontaneous; 133.81 kg; Height 5 ft. 11 in.; BMI: 41.1; iw iw
--- NOTE | 2021-01-28 16:31 | EDPHYS ---
Physician Documentation [facility] Name: Job Branch Jr Age: 70 yrs Sex: Male : 1950 Arrival Date: 01/28/2021 Time: 14:31 Bed 10 Private MD: Jens Robbins T ED Physician Taz Thakur HPI: 01/28 16:53 This 70 yrs old Male presents to ER via Ambulatory with complaints of Sore Throat. kb 16:53 The patient presents with sore throat. The patient describes throat pain as constant. kb Onset: The symptoms/episode began/occurred 7 day(s) ago. Severity of symptoms: At their worst the symptoms were mild, in the emergency department the symptoms are unchanged. Modifying factors: The symptoms are alleviated by nothing, the symptoms are aggravated by nothing, Patient's oral intake status: good. Associated signs and symptoms: Pertinent positives: Sore throat. The patient has experienced similar episodes in the past. The patient has not recently seen a physician. Pt states he feels drainage going down his throat and has a sore throat. STates he gets this once or twice per year, but it normally goes away on its own after 4-5 days. Denies fever. Historical: - Allergies: 14:57 Tequins; iw 14:57 tramadol; iw - Home Meds: 14:57 Diovan Oral [Active]; iw - PMHx: 14:57 Hypertension; iw - PSHx: 14:58 back; iw 14:59 Appendectomy; iw - Immunization history:: Client reports receiving the 2nd dose of the Covid vaccine. - Social history:: Smoking status: Patient denies any tobacco usage or history of. ROS: 16:52 Constitutional: Negative for fever, chills, and weight loss. kb 16:52 ENT: Positive for sore throat. 16:52 All other systems are negative. Exam: 16:52 Constitutional: This is a well developed, well nourished patient who is awake, alert, kb and in no acute distress. Head/Face: Normocephalic, atraumatic. ENT: Moist Mucous membranes Cardiovascular: Regular rate and rhythm with a normal S1 and S2. No gallops, murmurs, or rubs. No pulse deficits. Respiratory: Respirations even and unlabored. No increased work of breathing, no retractions or nasal flaring. Skin: Warm, dry with normal turgor. Normal color. MS/ Extremity: Pulses equal, no cyanosis. Neurovascular intact. Full, normal range of motion. Neuro: Awake and alert, GCS 15, oriented to person, place, time, and situation. Moves all extremities. Normal gait. Psych: Awake, alert, with orientation to person, place and time. Behavior, mood, and affect are within normal limits. Vital Signs: 14:56 BP 141 / 98; Pulse 73; Resp 16 S; Temp 98.0; Pulse Ox 98% on R/A; Weight 133.81 kg; iw Height 5 ft. 11 in. (180.34 cm); 14:56 Body Mass Index 41.14 (133.81 kg, 180.34 cm) iw MDM: 15:00 Patient medically screened. kb 16:51 Data reviewed: vital signs, nurses notes. Data interpreted: Pulse oximetry: on room air kb is 98 %. Interpretation: normal. Counseling: I had a detailed discussion with the patient and/or guardian regarding: the historical points, exam findings, and any diagnostic results supporting the discharge/admit diagnosis, lab results, the need for outpatient follow up, a family practitioner, to return to the emergency department if symptoms worsen or persist or if there are any questions or concerns that arise at home. 01/28 15:03 Order name: Strep; Complete Time: 16:03 kb 01/28 16:02 Order name: Throat Culture EDMS Administered Medications: No medications were administered Disposition: 01/29 09:19 Co-signature as Attending Physician, Taz Thakur MD I agree with the assessment and sp3 plan of care. Disposition Summary: 01/28/21 16:30 Discharge Ordered Location: Home kb Condition: Stable kb Diagnosis - Allergic rhinitis, unspecified kb Followup: kb - With: Emergency Department - When: As needed - Reason: Worsening of condition Followup: kb - With: Private Physician - When: 2 - 3 days - Reason: Recheck today's complaints, Continuance of care, Re-evaluation by your physician Discharge Instructions: - Discharge Summary Sheet kb - Allergic Rhinitis, Adult, Zsto-me-Zsok kb - Sore Throat, Amhu-hf-Pjel kb Forms: - Medication Reconciliation Form kb - Thank You Letter kb - Antibiotic Education kb - Prescription Opioid Use kb Signatures: Dispatcher [employer] EDMS Elia, Claribel, RN MIDWIFE-C RN MIDWIFE-Ckb Damari Jansen, RN RN Taz Priest MD MD sp3
[2021-01-28 16:59] VITALS: BP 141/98; TEMP 98; O2SAT 98
== END 2021-01-28 16:54 | disposition home or self-care (01) ==
LOC: ER 14:29
DX: J30.9 Allergic rhinitis, unspecified (principal); I10 Essential (primary) hypertension; Z88.5 Allergy status to narcotic agent; Z88.8 Allergy status to other drugs, medicaments and biological substances
CPT/HCPCS: 87070; 87081; 99281

== ENCOUNTER 2022-04-02 06:16 | Day surgery (SDC) | payer OTHER ==
[2022-03-18 08:28] LABS: Absolute Lymphocytes (CBC) 0.7 K/uL (0.7-4.9); Hematocrit 41.4 % (39.6-49.0); Lymphocytes % 18.5 % (15.3-44.8); MCV 96.3 fL (80-100); MPV 10.1 fL (7.6-11.3)
[2022-03-18 08:36] LABS: Protime INR 1.15
[2022-03-18 08:42] LABS: Potassium 4.2 mmol/L (3.5-5.1)
[2022-04-02] MEDS ORDERED: CEFAZOLIN SODIUM 2 GM/VIAL ONE (06:49)
[2022-04-02] MEDS ORDERED: Ringers Lactate 1,000 ML IV ONE (06:49)
[2022-04-02] MEDS ORDERED: propofoL 200 MG/20 ML VIAL IV ONE (07:24)
[2022-04-02] MEDS ORDERED: FENTANYL CITR 100 MCG/2 ML ONE (07:24)
[2022-04-02] MEDS ORDERED: LIDOCAINE 1% MPF 5 ML VIAL ONE (07:25)
[2022-04-02] MEDS ORDERED: NS 0.9% VIAL 10 ML ONE (07:44)
[2022-04-02] MEDS ORDERED: ONDANSETRON 4 MG/2 ML VIAL ONE (08:04)
[2022-04-02] MEDS ORDERED: EPHEDRINE SULF 50 MG/ML VIAL ONE (08:13)
--- NOTE | 2022-04-02 10:14 | OP ---
Surgeon: DAYNA BARRY Preoperative Diagnosis: Favorable intermediate risk prostate cancer. Postoperative Diagnosis: Favorable intermediate risk prostate cancer. Principal Procedures: 1.Transrectal ultrasonography. 2.SpaceOAR gel insertion. Indication For Procedure: Mr. Branch is a 72-year-old gentleman, who was on active surveillance for prostate cancer that progressed to favorable intermediate risk and he was counseled and elected to p roceed with radiation therapy. SpaceOAR gel insertion was requested by the radiation oncologist to i ncrease the space between his rectum, the rectal wall and the prostate, and an initial SpaceOAR gel i nsertion was performed a few months back. Unfortunately, the gel largely was asymmetric in its depos ition extending from the midline more off to the left side as opposed to symmetrically elevating the prostate in the midline overlying the rectum. As a result, he requested an additional attempt at Spa ceOAR gel insertion to make the elevation of the prostate more symmetric bilaterally. Procedure In Detail: The patient was consented in the preoperative holding area before being transfe rred to operative suite where general anesthesia was induced. He was given Ancef 2 g IV antimicrobia l prophylaxis and pneumo boots were provided for DVT prophylaxis. He was placed in the high lithotom y position, padded and secured to the table appropriately. His genitalia were elevated out of his pe rineal region using an Ioban drape. The perineal area was then prepped with Betadine and draped in s tandard fashion. The case was begun by inserting the transrectal ultrasound probe into his rectum an d visualizing the prostate. Of note, there was significant prerectal fat creating a very large space between the base of the prostate and the rectal wall. The evidence of the old SpaceOAR gel was pres ent largely extending in the left lateral surface of his prostate. As a result, using the transrecta l ultrasound guidance, the injection needle was inserted directly in the midline to the point in the mid gland region of the prostate from apex to base that would be the ideal targeting location. Aspir ation was performed and no blood was obtained, and then I injected saline to attempt to hydrodissect that tissue. The saline did diffuse between the tissue layers of fat and while some of the saline di d emanate to his right side, which was desired to create the space on that side, a lot of it still we nt toward his left side, where the prior SpaceOAR gel largely deposited. As a result, I removed the needle under ultrasound visualization and reinserted it this time just lateral to the midline on the right side. The needle was within the midlateral zone of the prostate and was slightly angled more t oward the midline where hydrodissection was again performed. At this time, the hydrodissection did f ill the midline slightly to the right, but it would not stay within the midline since the extensive f at in that region would allow the fluid to simply diffuse laterally as opposed to largely in the midl ine. A portion of the hydrodissection was in the midline. As a result, the SpaceOAR gel components which had been mixed on the back table were now injected in that region and did create a nice space i n the midline and off to the right, creating symmetry with that done on the left side extending from the mid gland region toward the apex where a lot of the gel did seem to fall off into the perirectal region at the apical portion of the prostate. While there was still some asymmetry with the prostate being more elevated on the patient's left at the base that was not seen on the patient's base to the right, there was a significant degree of more symmetry with the elevation this time achieved. As a result, the needle was removed, the ultrasound probe was removed, and the patient was taken out of th e lithotomy position. He was then transferred to a stretcher before being transferred to the [facility] room in good condition. Complications: None. Discharge Disposition: He should follow up in the Urology Clinic in about 3-6 months after he comple katerina his radiation therapy. Should he have aggravation of his urologic symptoms during that time, he may be seen sooner. JANETT/TRISTAN Voice ID: [id number] Report ID: [id number]
[2022-04-02 10:26] VITALS: BP 151/88; TEMP 96.8; O2SAT 97
== END 2022-04-02 10:01 | disposition home or self-care (01) ==
LOC: OR 06:16
PROVIDERS: ATTEND Urology
PROC: 0VH43YZ Insertion of Other Device into Prostate and Seminal Vesicles, Percutaneous Approach (ICD-10-PCS; principal; 2022-04-02 07:30)
DX: C61 Malignant neoplasm of prostate (principal)
CPT/HCPCS: 87088; 85025; 87086; 80048; 36415; 85610; 55874; J2704; J2001; J3010; A4216; J7120; J2405

== ENCOUNTER 2023-07-04 04:28 | Observation (INO) | payer OTHER ==
[2023-07-04] MEDS ORDERED: ASPIRIN 81 MG CHEWABLE TABLET ONE (05:09)
--- NOTE | 2023-07-04 10:30 | EDPHYS ---
Physician Documentation [facility] Name: Job Branch Jr Age: 73 yrs Sex: Male : 1950 Arrival Date: 07/04/2023 Time: 04:28 Bed 15 Private MD: ED Physician Lorenzo Joe HPI: 07/03 04:51 This 73 yrs old Male presents to ER via Unassigned with complaints of juan antonio Weakness, Blood Pressure Problem. 04:51 The patient presents to the emergency department with weakness of the entire body, juan antonio generalized weakness. Onset: The symptoms/episode began/occurred just prior to arrival, this morning. Context: occurred at home. Historical: - Allergies: 04:52 Tequins; cm10 04:52 tramadol; cm10 - PMHx: 04:52 Hypertension; cm10 - PSHx: 04:52 Appendectomy; back; cm10 - Immunization history:: Adult Immunizations up to date. - Infectious Disease History:: Denies. - Social history:: Smoking status: Patient denies any tobacco usage or history of. ROS: 04:54 Constitutional: Negative for fever, chills, and weight loss, Eyes: Negative for injury, juan antonio pain, redness, and discharge, ENT: Negative for injury, pain, and discharge, Neck: Negative for injury, pain, and swelling, Respiratory: Negative for shortness of breath, cough, wheezing, and pleuritic chest pain, Abdomen/GI: Negative for abdominal pain, nausea, vomiting, diarrhea, and constipation, Back: Negative for injury and pain, : Negative for injury, bleeding, discharge, and swelling, MS/Extremity: Negative for injury and deformity, Skin: Negative for injury, rash, and discoloration, Psych: Negative for depression, anxiety, suicide ideation, homicidal ideation, and hallucinations, Allergy/Immunology: Negative for hives, rash, and allergies, Endocrine: Negative for neck swelling, polydipsia, polyuria, polyphagia, and marked weight changes, Hematologic/Lymphatic: Negative for swollen nodes, abnormal bleeding, and unusual bruising, 04:54 Neck: Positive for pain at rest, of the left jaw, 04:54 Cardiovascular: Positive for chest pain, 04:54 Respiratory: Positive for shortness of breath, 04:54 Abdomen/GI: Negative for abdominal pain, Exam: 04:54 Constitutional: This is a well developed, well nourished patient who is awake, alert, juan antonio and in no acute distress. Head/Face: Normocephalic, atraumatic. Eyes: Pupils equal round and reactive to light, extra-ocular motions intact. Lids and lashes normal. Conjunctiva and sclera are non-icteric and not injected. Cornea within normal limits. Periorbital areas with no swelling, redness, or edema. ENT: Nares patent. No nasal discharge, no septal abnormalities noted. Tympanic membranes are normal and external auditory canals are clear. Oropharynx with no redness, swelling, or masses, exudates, or evidence of obstruction, uvula midline. Mucous membranes moist. Neck: Trachea midline, no thyromegaly or masses palpated, and no cervical lymphadenopathy. Supple, full range of motion without nuchal rigidity, or vertebral point tenderness. No Meningismus. Chest/axilla: Normal chest wall appearance and motion. Nontender with no deformity. No lesions are appreciated. Cardiovascular: Regular rate and rhythm with a normal S1 and S2. No gallops, murmurs, or rubs. Normal PMI, no JVD. No pulse deficits. Respiratory: Lungs have equal breath sounds bilaterally, clear to auscultation and percussion. No rales, rhonchi or wheezes noted. No increased work of breathing, no retractions or nasal flaring. Abdomen/GI: Soft, non-tender, with normal bowel sounds. No distension or tympany. No guarding or rebound. No evidence of tenderness throughout. Back: No spinal tenderness. No costovertebral tenderness. Full range of motion. Male : Normal genitalia with no discharge or lesions. Skin: Warm, dry with normal turgor. Normal color with no rashes, no lesions, and no evidence of cellulitis. MS/ Extremity: Pulses equal, no cyanosis. Neurovascular intact. Full, normal range of motion. Neuro: Awake and alert, GCS 15, oriented to person, place, time, and situation. Cranial nerves II-XII grossly intact. Motor strength 5/5 in all extremities. Sensory grossly intact. Cerebellar exam normal. Normal gait. Psych: Awake, alert, with orientation to person, place and time. Behavior, mood, and affect are within normal limits. 05:01 ECG was reviewed by the Attending Physician. [facility] Vital Signs: 04:51 BP 160 / 84; Pulse 63; Resp 16; Temp 98; Pulse Ox 100% on R/A; Weight 133.81 kg; Height cm10 5 ft. 11 in. ; Pain 0/10; 05:42 BP 137 / 76; Pulse 72; Pulse Ox 100% on R/A; Pain 0/10; tm6 06:31 BP 122 / 91; Pulse 61; Pulse Ox 98% on R/A; tm6 07:00 BP 153 / 71; Pulse 65; Resp 16; Pulse Ox 99% ; db 09:00 BP 150 / 87; Pulse 63; Resp 14; Temp 98; Pulse Ox 99% ; db 04:51 Body Mass Index 41.14 (133.81 kg, 180.34 cm) cm10 04:51 Pain Scale: Adult cm10 05:42 Pain Scale: Adult tm6 NIH Stroke Scale Scores: 04:54 NIHSS Score: 0 juan antonio [place] Coma Score: 04:54 Eye Response: spontaneous(4). Motor Response: obeys commands(6). Verbal Response: juan antonio oriented(5). Total: 15. MDM: 04:40 Patient medically screened. juan antonio 04:56 Differential diagnosis: abnormal EKG, acute myocardial infarction, acute pericarditis, juan antonio anxiety, chest wall pain, costochondritis, esophagitis, herpes zoster, pancreatitis, peptic ulcer disease, pericarditis, pleurisy, pneumonia, pneumothorax, pulmonary embolus, stable angina, thoracic aortic disection, unstable angina. Differential Diagnosis altered mental status, sepsis. HEART Score: History: Slightly Suspicious (0), ECG: Non specific repolarization disturbance / LBTB / PM (1), Age: > or = 65 years (2), Risk Factors: > or = 3 Risk factors for atherosclerotic disease (2), [Hypertension] [+ Family HX] [Obesity] Troponin: < or = 1 x Normal Limit (0). The patient was given aspirin in the Emergency Department. LIZA Risk Score: 1 - patient's age is greater or equal to 65 years, 1 - Three or more CAD risk factors, 1 - ASA use in past 7 days. Data reviewed: vital signs, nurses notes, lab test result(s), EKG, radiologic studies, plain films. Consideration of Admission/Observation Patient was admitted/placed on observation. Escalation of care including admission/observation considered. I considered the following discharge prescriptions or medication management in the emergency department Medications were administered in the Emergency Department. See MAR. Independent interpretation of the following test(s) in the Emergency Department EKG: See my EKG interpretation above. Test considered but Not performed: Ultrasound no 2 d echo in ed. Historians other than the Patient: Spouse/Significant Other: well informed. Care significantly affected by the following chronic conditions: Hypertension, Obesity. Counseling: I had a detailed discussion with the patient and/or guardian regarding the historical points, exam findings, and any diagnostic results supporting the discharge/admit diagnosis, the presence of at least one elevated blood pressure reading (>120/80) during this emergency department visit, lab results, the need for further work-up and treatment in the hospital. 07/03 04:42 Order name: Basic Metabolic Panel [facility] 07/03 04:42 Order name: CBC with Diff 07/03 04:42 Order name: LFT's 07/03 04:42 Order name: Magnesium [facility] 07/03 04:42 Order name: NT PRO-BNP juan antonio 07/03 04:42 Order name: PT-INR [facility] 07/03 04:42 Order name: Troponin HS [facility] 07/03 04:42 Order name: Lipase [facility] 07/03 04:42 Order name: Urinalysis w/ reflexes 07/03 04:42 Order name: Blood Culture Adult (2) juan antonio 07/03 04:42 Order name: Lactate w/ 2H reflex if indic. [facility] 07/03 04:42 Order name: Flu [facility] 07/03 04:42 Order name: SARS RAPID [facility] 07/03 04:42 Order name: XRAY Chest (1 view) juan antonio 07/03 04:51 Order name: CT Aorta for Dissection 07/03 04:42 Order name: EKG; Complete Time: 10:30 juan antonio 07/03 04:42 Order name: Cardiac monitoring; Complete Time: 05:11 [facility] 07/03 04:42 Order name: EKG - Nurse/Tech; Complete Time: 05:11 [facility] 07/03 04:42 Order name: IV Saline Lock; Complete Time: 05:30 [facility] 07/03 04:42 Order name: Labs collected and sent; Complete Time: 05:30 [facility] 07/03 04:42 Order name: O2 Per Protocol; Complete Time: 05:11 07/03 04:42 Order name: O2 Sat Monitoring; Complete Time: 05:11 juan antonio EC:01 Rate is 68 beats/min. Rhythm is regular. QRS [place] is Normal. [place] interval is normal. QRS juan antonio interval is normal. QT interval is normal. No Q waves. T waves are Normal. No ST changes noted. Clinical impression: NSR w/ Non-specific ST/T Changes and No evidence of ischemia. Interpreted by me. Reviewed by me. Administered Medications: 05:11 Drug: Aspirin PO Chewable Tablet 162 mg PO once Route: PO; tm6 07:58 Follow up: Response: No adverse reaction db 06:57 Drug: Furosemide IVP 20 mg IVP once; give over 2 minutes Route: IVP; Site: right tm6 forearm; 07:58 Follow up: Response: No adverse reaction db Disposition Summary: 07/04/23 06:39 Hospitalization Ordered Notes: Hospitalization Status: Observation juan antonio Provider: Cem Garcia cha Location: Telemetry/MedSurg (observation) juan antonio Condition: Fair juan antonio Problem: new juan antonio Symptoms: have improved juan antonio Bed/Room Type: Standard [facility] Room Assignment: 228(07/04/23 09:35) dw Diagnosis - Essential (primary) hypertension juan antonio - Weakness juan antonio - Obesity due to excess calories juan antonio - Chest pain, unspecified juan antonio Forms: - Medication Reconciliation Form juan antonio - SBAR form juan antonio - Leadership Thank You Letter [facility] NIH Stroke Scale - NIH Stroke Score Date: 07/04/2023 Time: 04:54 Total Score = 0 10. Dysarthria (speech clarity - read or repeat words) - 0(Normal) 11. Extinction and Inattention (visual/tactile/auditory/spatial/personal) - 0(No abnormality) 1a. Level of Consciousness (LOC) - 0(Alert) 1b. Level of Consciousness (LOC) (Month \T\ Age) - 0(Both) 1c. LOC Commands (Open \T\ Closes Eyes/Border Measurer And Cutter) - 0(Both) 2. Best Gaze (Lateral Gaze Paresis) - 0(Normal) 3. Visual Field Loss - 0(No visual loss) 4. Facial Palsy - 0(Normal) 5a. Left Arm: Motor (10-second hold) - 0(No drift) 5b. Right Arm: Motor (10-second hold) - 0(No drift) 6a. Left Leg: Motor (5-second hold - always test supine) - 0(No drift) 6b. Right Leg: Motor (5-second hold - always test supine) - 0(No drift) 7. Limb Ataxia (finger/nose \T\ heel/jauregui - test with eyes open) - 0(Absent) 8. Sensory Loss (pinprick arms/legs/face) - 0(Normal) 9. Best Language: Aphasia (description/naming/reading) - 0(No aphasia) Initials: juan antonio Signatures: Dispatcher [employer] Disha Daily RN RN Lorenzo Torres MD MD cha Martinez, Clarissa RN RN cm10 Je Fuller RN RN tm6 Padmini Doshi RN db Corrections: (The following items were deleted from the chart) 09:35 06:39 juan antonio chance
--- NOTE | 2023-07-04 10:30 | ER ---
Nurse's Notes [facility] Name: Job Branch Jr Age: 73 yrs Sex: Male : 1950 Arrival Date: 07/04/2023 Time: 04:28 Bed 15 Private MD: Diagnosis: Essential (primary) hypertension;Weakness;Obesity due to excess calories;Chest pain, unspecified Presentation: 07/03 04:51 Chief complaint: Patient states: Generalized weakness and woke up this morning with cm10 left sided neck pain. Pt denies chest pain and shortness of breath. Coronavirus screen: Client denies travel out of the [place] in the last 14 days. At this time, the client does not indicate any symptoms associated with coronavirus-19. Ebola Screen: Patient denies travel to an Ebola-affected area in the 21 days before illness onset. No symptoms or risks identified at this time. Initial Sepsis Screen: Does the patient meet any 2 criteria? No. Patient's initial sepsis screen is negative. Does the patient have a suspected source of infection? No. Patient's initial sepsis screen is negative. Risk Assessment: Do you want to hurt yourself or someone else? Patient reports no desire to harm self or others. Onset of symptoms was July 04, 2023. 04:51 Method Of Arrival: Ambulatory cm10 04:51 Acuity: SOLANGE 3 cm10 Triage Assessment: 04:52 General: Appears in no apparent distress. comfortable, Behavior is calm, cooperative. cm10 Pain: Complains of pain in neck Pain does not radiate. Pain currently is 3 out of 10 on a pain scale. Neuro: No deficits noted. Level of Consciousness is awake, alert, obeys commands, Oriented to person, place, time, situation, Appropriate for age. Historical: - Allergies: 04:52 Tequins; cm10 04:52 tramadol; cm10 - PMHx: 04:52 Hypertension; cm10 - PSHx: 04:52 Appendectomy; back; cm10 - Immunization history:: Adult Immunizations up to date. - Infectious Disease History:: Denies. - Social history:: Smoking status: Patient denies any tobacco usage or history of. Screenin:12 [facility] ED Fall Risk Assessment (Adult) History of falling in the last 3 months, tm6 including since admission No falls in past 3 months (0 pts) Confusion or Disorientation No (0 pts) Intoxicated or Sedated No (0 pts) Impaired Gait No (0 pts) Mobility Assist Device Used No (0 pt) Altered Elimination No (0 pt) Score/Fall Risk Level 0 - 2 = Low Risk Oriented to surroundings, Maintained a safe environment. Abuse screen: Denies threats or abuse. Denies injuries from another. Nutritional screening: No deficits noted. Tuberculosis screening: No symptoms or risk factors identified. Assessment: 05:12 General: Appears ill, Behavior is calm, cooperative. Pain: Complains of pain in face tm6 and left jaw and neck Quality of pain is described as pressure, Pain began 1 day ago. Neuro: Level of Consciousness is awake, alert, obeys commands, Oriented to person, place, time, situation, Reports headache in left. Cardiovascular: Patient's skin is warm and dry. Respiratory: Airway is patent Respiratory effort is even, unlabored, Respiratory pattern is regular, symmetrical. GI: Abdomen is round non-distended, Abd is soft and non tender X 4 quads. : No signs and/or symptoms were reported regarding the genitourinary system. EENT: No signs and/or symptoms were reported regarding the EENT system. Derm: No signs and/or symptoms reported regarding the dermatologic system. Musculoskeletal: Reports general weakness. 05:42 Reassessment: Patient appears in no apparent distress at this time. No changes from tm6 previously documented assessment. 06:31 Reassessment: Patient appears in no apparent distress at this time. No changes from tm6 previously documented assessment. 10:20 Reassessment: CALLED FLOOR TO NOTIFY PT IS ON THE WAY. QUESTIONS ANSWERED. db Vital Signs: 04:51 BP 160 / 84; Pulse 63; Resp 16; Temp 98; Pulse Ox 100% on R/A; Weight 133.81 kg; Height cm10 5 ft. 11 in. ; Pain 0/10; 05:42 BP 137 / 76; Pulse 72; Pulse Ox 100% on R/A; Pain 0/10; tm6 06:31 BP 122 / 91; Pulse 61; Pulse Ox 98% on R/A; tm6 07:00 BP 153 / 71; Pulse 65; Resp 16; Pulse Ox 99% ; db 09:00 BP 150 / 87; Pulse 63; Resp 14; Temp 98; Pulse Ox 99% ; db 04:51 Body Mass Index 41.14 (133.81 kg, 180.34 cm) cm10 04:51 Pain Scale: Adult cm10 05:42 Pain Scale: Adult tm6 [place] Coma Score: 04:54 Eye Response: spontaneous(4). Motor Response: obeys commands(6). Verbal Response: juan antonio oriented(5). Total: 15. NIH Stroke Scale Scores: 04:54 NIHSS Score: 0 juan antonio ED Course: 04:33 Patient arrived in ED. ra3 04:40 Lorenzo Joe MD is Attending Physician. juan antonio 04:44 Je Fuller, RN is Primary Nurse. tm6 04:52 Triage completed. cm10 04:52 Arm band placed on Patient placed in an exam room, on a stretcher. cm10 04:52 EKG done, by ED staff, reviewed by Lorenzo Joe MD. tm6 05:12 Patient has correct armband on for positive identification. Placed in gown. Bed in low tm6 position. Call light in reach. Side rails up X 1. Provided Education on: use of call gutierrez. Client placed on continuous cardiac and pulse oximetry monitoring. NIBP monitoring applied. groundwater monitoring technician on. Pulse ox on. NIBP on. Door closed. Noise minimized. Warm blanket given. 05:12 Missed attempt(s): 20 gauge in right antecubital area. Bleeding controlled, band aid tm6 applied, catheter tip intact. 05:25 Initial lab(s) drawn, by me, sent to lab. First set of blood cultures drawn by me. cm10 05:30 Accessed peripheral vein via ultrasound, utilizing dynamic ultrasound technique Clean \T\ cm10 dry. Good blood return. Flushes easily. 20G right forearm. 06:38 Cem Garcia MD is Hospitalizing Provider. juan antonio 07:55 Urine collected: clean catch specimen. db 09:26 Primary Nurse role handed off by Je Fuller, GRACIE jl7 09:42 Padmini Doshi RN is Primary Nurse. db 10:09 No provider procedures requiring assistance completed. Patient admitted, IV remains in db place. Administered Medications: 05:11 Drug: Aspirin PO Chewable Tablet 162 mg PO once Route: PO; tm6 07:58 Follow up: Response: No adverse reaction db 06:57 Drug: Furosemide IVP 20 mg IVP once; give over 2 minutes Route: IVP; Site: right tm6 forearm; 07:58 Follow up: Response: No adverse reaction db Medication: 05:12 VIS not applicable for this client. tm6 Output: 08:04 Urine: 575ml (Voided); Total: 575ml. db 09:04 Urine: 675ml; Total: 1250ml. db 10:09 Urine: 425ml (Voided); Total: 1675ml. db Outcome: 06:39 Decision to Hospitalize by Provider. juan antonio 10:09 Admitted to ER Hold. Please see orderTalk for further documentation. db 10:09 Condition: stable 10:09 Instructed on the need for admit, 10:33 Patient left the ED. db NIH Stroke Scale - NIH Stroke Score Date: 07/04/2023 Time: 04:54 Total Score = 0 10. Dysarthria (speech clarity - read or repeat words) - 0(Normal) 11. Extinction and Inattention (visual/tactile/auditory/spatial/personal) - 0(No abnormality) 1a. Level of Consciousness (LOC) - 0(Alert) 1b. Level of Consciousness (LOC) (Month \T\ Age) - 0(Both) 1c. LOC Commands (Open \T\ Closes Eyes/Thread Checker) - 0(Both) 2. Best Gaze (Lateral Gaze Paresis) - 0(Normal) 3. Visual Field Loss - 0(No visual loss) 4. Facial Palsy - 0(Normal) 5a. Left Arm: Motor (10-second hold) - 0(No drift) 5b. Right Arm: Motor (10-second hold) - 0(No drift) 6a. Left Leg: Motor (5-second hold - always test supine) - 0(No drift) 6b. Right Leg: Motor (5-second hold - always test supine) - 0(No drift) 7. Limb Ataxia (finger/nose \T\ heel/jauregui - test with eyes open) - 0(Absent) 8. Sensory Loss (pinprick arms/legs/face) - 0(Normal) 9. Best Language: Aphasia (description/naming/reading) - 0(No aphasia) Initials: [facility] Signatures: Lorenzo Joe MD MD cha Leal, Jahala, RN RN jl7 Padmini Doshi RN RN db Guillermina Carrillo RN RN cm10 Je Fuller RN RN tm6 Mc, Imelda ra3
--- OUTSIDE RECORDS SUMMARY | 2023-07-04 10:32 | XMS REPORT | Clinical Summary ---
Author Name Unknown Organization [facility] Address [address] [place] [address] Care Team Providers Care Cancer Genetics Assistant Name Role Phone eJns Robbins MD Unavailable [phone] Henry Baird MD Primary Care Provider [phone] Floyd Cruz MD Unavailable [phone]- [phone] Allergies Active Allergy Reactions Criticality Noted Date Comments Gatifloxacin 07/21/2017 Medications Medication Sig Dispensed Refills Start Date End Date Status valsartan (DIOVAN) 320 mg tablet Take 320 mg by mouth daily. 0 Active clonazePAM (KlonoPIN) 0.5 mg tablet Take 0.5 mg by mouth as needed. 0 Active ARIPiprazole (ABILIFY) 2 mg tablet Take 2 mg by mouth. 0 Active hydroCHLOROthiazide (HYDRODIURIL) 25 mg tablet Take 25 mg by mouth 2 (two) times a week [facility]. 0 Active cyanocobalamin (VITAMIN B-12) 1000 mcg tablet Take 1,000 mcg by mouth daily. 0 Active aspirin 81 mg EC tablet Take 81 mg by mouth. 0 Active magnesium oxide (MAOX) 400 mg tablet Take 400 mg by mouth daily. 0 Active Active Problems Problem Noted Date Diagnosed Date Elevated prostate specific antigen (PSA) 018 Social History Tobacco Use Types Packs/Day Years Used Date Smoking Tobacco: Never Assessed Sex and Gender Information Value Date Recorded Sex Assigned at Not on file Gender Identity Not on file Sexual Orientation Not on file Obstetrics History Plan of Treatment Health Maintenance Due Date Last Done Comments COVID-19 Vaccine (#1) 1950 Influenza Vaccine 11/02/2023 Care Teams Cancer Genetics Assistant Relationship Specialty Start Date End Date Jens Robbins MD [address] [place], [place] [address] PCP - External Primary Care Provider Family Practice 06/04/17 [place] [address] [place] [id number] PCP - General Urology 06/04/17 Floyd Cruz MD [address] [place] [address] [address] [place], [place] [id number] PCP - External Referring Urology 06/11/17
[2023-07-04 11:18] LABS: Albumin 3.4 g/dL (3.4-5.0); Albumin/Globulin Ratio 0.9 (1.1-1.8); Bilirubin Direct 0.2 mg/dL (0-0.2); Bilirubin Indirect, Calculated 0.4 mg/dL (0.2-0.8); Bilirubin Total 0.6 mg/dL (0.2-1.0); Globulin 3.6 g/dL (2.3-3.5); Magnesium 2.2 mg/dL (1.6-2.4); Troponin High Sensitivity 26.1 pg/mL (<58.9)
[2023-07-04 11:21] LABS: Absolute Eosinophils 0.1 K/uL (0-0.5); Absolute Lymphocytes (CBC) 0.7 K/uL (0.7-4.9); Absolute Monocytes 0.3 K/uL (0.1-1.3); Basophils % 0.5 % (0-1.3); Eosinophils % 2.1 % (0-4.4); Hematocrit 39.9 % (39.6-49.0); Lymphocytes % 16.2 % (15.3-44.8); MCHC 32.6 g/dL (32.0-36.0); MCV 98.3 fL (80-100); MPV 11.5 fL (7.6-11.3); Neutrophils % 73.2 % (41.7-73.7); Nucleated Red Blood Cells % 0.1 % (0-0); Platelets 111 thou/uL (152-406); RBC Red Blood Cell Count 4.06 M/uL (4.33-5.43); Red Cell Distribution Width 14.2 % (12.1-15.2)
[2023-07-04 11:23] LABS: PT Prothrombin Time 14.1 SECONDS (9.5-12.5); Protime INR 1.29
--- NOTE | 2023-07-04 11:23 | RAD REPORT ---
EXAM DESCRIPTION: CT - Angio Aorta For Dissection - 07/04/2023 11:11 am CLINICAL HISTORY: Chest pain radiating to the back. PAIN COMPARISON: No comparisons TECHNIQUE: CT angiography of the aorta was performed with MIPs. All CT scans are performed using dose optimization technique as appropriate and may include automated exposure control or mA/KV adjustment according to patient size. FINDINGS: A left aortic arch is present with normal branching pattern of the great vessels.No acute aortic finding is seen such as aneurysm, penetrating ulcer or dissection. The celiac axis demonstrat es ostial stenosis. SMA and GIFTY appear patent. Both renal arteries appear patent. Small accessory rig ht renal artery. No evidence of pulmonary embolism. Mild linear atelectasis is present both lung bases. No focal pulmonary infiltrate suspected. Small hi atal hernia. The liver demonstrates no focal mass or biliary dilatation.Small benign hepatic cysts are present.The spleen, pancreas, adrenal glands and kidneys are within normal limits for arterial phase imaging. No bowel obstruction, free fluid or abscess.Nonvisualized appendix.No pathologic enlarged lymphadenop athy identified. Hardware is in place lumbar spine with postsurgical changes evident. IMPRESSION: No acute aortic finding is demonstrated. 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 No distal flow abnormality detected.
[2023-07-04 11:24] LABS: Specific Gravity 1.022 (1.005-1.030); Sqamous Epithelial None Seen /HPF (None Seen); Urine Bacteria None Seen /HPF (<20); Urine Bilirubin NEGATIVE (Negative); Urine Blood Trace (Negative); Urine Clarity Clear (Clear); Urine Color Colorless (Yellow); Urine Culture Reflex Order NOT NEEDED; Urine Glucose NEGATIVE (Negative); Urine Ketones NEGATIVE (Negative); Urine Microscopic Reflex YN ORDER UMIC; Urine Nitrite NEGATIVE (Negative); Urine Protein NEGATIVE (Negative); Urine RBC <5 /HPF (None Seen); Urine Urobilinogen Normal (Normal); Urine WBC <5 /HPF (<5)
[2023-07-04] MEDS: VALSARTAN 80 MG TAB PO SCH (11:54)
--- NOTE | 2023-07-04 12:11 | RAD REPORT ---
EXAM DESCRIPTION: RAD - Chest Single View - 07/04/2023 12:06 pm CLINICAL HISTORY: HTN Chest pain. COMPARISON: Chest Pa And Lat (2 Views) dated 11/29/2021; Chest Single View dated 02/06/2019; Chest Sin gle View dated 02/04/2019; Chest Single View dated 01/28/2019 FINDINGS: Portable technique limits examination quality. Mild interstitial pulmonary edema. The heart is moderately enlarged in size. No displaced fractures. IMPRESSION: Mild CHF.
[2023-07-04 13:06] LABS: SARS-CoV-2 Antigen CONTROL BLUE LINE VIS/BG OK; SARS-CoV-2 Antigen Rapid Res Negative (Negative)
--- NOTE | 2023-07-04 14:35 | EKG ---
Test Date: 2023-07-04 Test Time: 04:55:59 Locomotive Observer: ALBIN MEASUREMENT RESULTS: Intervals: Rate: 68 CO: 184 QRSD: 96 QT: 436 QTc: 463 Girard: P: 64 CO: 184 QRS: 50 T: -55 INTERPRETIVE STATEMENTS: Sinus rhythm with frequent premature ventricular complexes Abnormal QRS-T angle, consider primary T wave abnormality Abnormal ECG Compared to ECG 11/29/2021 13:57:55 Ventricular premature complex(es) now present T-wave abnormality now present Electronically Signed On 07-04-23 14:35:06 CDT by Yeison Headley
--- NOTE | 2023-07-04 20:36 | CON ---
Date of Consultation: 07/04/2023 Reason For Consultation: Bradycardia and chest pain. History Of Present Illness: This is a 73-year-old male, no history of cardiac disease, has history o f hypertension, presents to the emergency room with pain that is shooting in his left side of the fac e and neck. No chest pain per se. Heart rate was slightly low. Denies having any dizziness or diap horesis. No nausea or vomiting. He saw his primary care physician recently and was referred to card iologist, but his appointment is not until August. Denies having any dizziness or passing out spells. Past Medical History: Hypertension. Medications: Refer reconciliation sheet for detailed list. Allergies: GATIFLOXACIN. Family History: No mature coronary artery disease or cancer. Social History: Does not smoke or drink. Does not use any drugs. Past Surgical History: Appendectomy. Review of Systems: All systems are reviewed, they are negative except those mentioned in HPI. Physical Examination: Vital Signs: Reviewed. Blood pressure is 134/63, heart rate is 67, breathing at 15, and temperature is 97. General: Pleasant elderly male, in no apparent distress. Head and Neck: Pupils are equal, reactive to light. Intact eye movements. No JVD. No cervical lym phadenopathy. Neck: Supple. Thyroid is not enlarged. Lungs: Clear to auscultation bilaterally. No rhonchi, rales, or crackles. No accessory muscle use. Heart: Regular rate and rhythm. No extra sounds. Abdomen: Soft, nontender. Bowel sounds positive. No organomegaly. No masses or hernia. No rigidi ty or rebound. Extremities: No edema, clubbing, or cyanosis. Intact pulses. Skin: No rash. Neurologic: Alert, awake, and oriented x3. No acute focal deficit appreciated. Lymph Nodes: No cervical lymphadenopathy. Investigations: First troponin is negative. NT-proBNP is 1058. BUN 21, creatinine 1.32, and hemogl obin is 13.0. Assessment/recommendation: 1.Chest pain. It is atypical with the fact the pain is more in his neck. Check sets of cardiac enz ymes, he has enough risk factors and if they are negative, then plan for outpatient stress test and s tart a baby aspirin. 2.Hypertension. Blood pressure is controlled. Resume home medication, which is valsartan and pleas e put him on baby aspirin 81 mg daily and check his lipids. 3.Elevated NT-proBNP, likely chronic congestive heart failure. He is not fluid overloaded at this p oint. Obtain an echo to further evaluate. SR/MODL Voice ID: [id number] Report ID: [id number]
[2023-07-04] MEDS ORDERED: HYDROCODONE/APAP 5/325 MG TAB PO PRN (21:27)
[2023-07-04] MEDS ORDERED: MORPHINE 2 MG/ML SYR IV PRN (21:27)
[2023-07-04] MEDS: ACETAMINOPHEN 500 MG TAB PO PRN (21:40)
--- NOTE | 2023-07-05 08:58 | P.PN ---
Subjective Date of Service: 07/05/23 presented with weakness, bradicardia, Cardiology consulted troponin normal, elevated BNP, no reported shortness of breath Review of Systems per HPI Physical Examination - Vital Signs Temperature: 97.4 F Blood Pressure: 157/88 Pulse: 53 Respirations: 14 Pulse Ox (%): 95 - Physical Exam General: Alert, In no apparent distress, Oriented x3, Obese HEENT: Atraumatic, Normocephalic Neck: Supple, JVD not distended Respiratory: Clear to auscultation bilaterally, Normal air movement Cardiovascular: No edema, Normal pulses Capillary refill: <2 Seconds Gastrointestinal: Normal bowel sounds, Soft and benign Musculoskeletal: No clubbing, No swelling Integumentary: No breakdown, No significant lesion Neurological: Normal speech, Normal strength at 5/5 x4 extr - Studies Laboratory Data (last 24 hrs) 07/04/23 07/04/23 07/04/23 05:25 05:25 05:25 WBC 4.10 L Hgb 13.0 L Hct 39.9 Plt Count 111 L PT 14.1 H INR 1.29 Sodium 140 Potassium 4.0 BUN 21 H Creatinine 1.32 H Glucose 98 Magnesium 2.2 Total Bilirubin 0.6 AST 13 L ALT 26 Alkaline Phosphatase 76 Lipase 13 07/04/23 07/04/23 07/04/23 04:42 04:42 04:42 WBC Cancelled Hgb Cancelled Hct Cancelled Plt Count Cancelled PT Cancelled INR Cancelled Sodium Cancelled Potassium Cancelled BUN Cancelled Creatinine Cancelled Glucose Cancelled Magnesium Cancelled Total Bilirubin Cancelled AST Cancelled ALT Cancelled Alkaline Phosphatase Cancelled Lipase Cancelled Microbiology Data (last 24 hrs): 07/04/23 05:25 Nasopharnyx Influenza Type A Antigen Screen - Final 07/04/23 05:25 Nasopharnyx Influenza Type B Antigen Screen - Final Assessment And Plan - Plan Assessment/Plan symptomatic bradycardia Weakness Echo ordered Cardiology consult Blood cultures,canceled Flu A&B negative EKG BP 160 / 84; Pulse 63; Resp 16; Temp 98; Pulse Ox 100% on R/A; Weight 133.81 k NIHSS 0 EKG Rate is 68 beats/min. Rhythm is regular. QRS [place] is Normal. [place] interval is normal. QRS interval is normal. QT interval is normal. No Q waves. T waves are Normal. No ST changes noted. Clinical impression: NSR w/ Non-specific ST/T Changes and No evidence of ischemia Essential hypertension Resume appropriate home Full code DVT Diet cardiac Disposition Home independent prior Discharge Plan: Home - Code Status/Comfort Care Code Status: Full Code Critical Care: No Time Spent Managing PTS Care (In Minutes): 35
--- NOTE | 2023-07-05 08:59 | P.HP ---
Patient History Date of Service: 07/05/23 Reason for admission: Bradycardia History of Present Illness: 73-year-old male with a past medical history of hypertension presented with weakness, bradicardia,. He reports symptoms starteD prior to arrival, he reports weakness over the last week. No reported syncope, no reported chest pain, shortness of breath. No reported fever, nausea vomiting diarrhea plan to admit for symptomatic bradycardia, weakness, cardiology consulted. Laboratory evaluate troponin normal, elevated BNP, no reported shortness of breath Allergies gatifloxacin [From Tequin] Allergy (Intermediate, Verified 03/18/22 08:02) ANXIETY Home Medications: Valsartan [Diovan] 320 mg PO DAILY 09/30/11 - Past Medical/Surgical History Has patient received pneumonia vaccine in the past: No Diabetic: No -: HTN -: Acid reflux -: headaches -: anxiety -: depression -: hernia repair -: cyst on tail bone removed -: rt shoulder sx -: appy - Family History Father -: Cancer Notes: skin cancer on face, triple bypass with valve replacement Mother Notes: 94 no health issues aside from alzheimers - Social History Smoking Status: Never smoker Alcohol use: Yes CD- Drugs: No Caffeine use: No Place of Residence: Home Review of Systems PER Hpi Physical Examination - Vital Signs Temperature: 97.4 F Blood Pressure: 157/88 Pulse: 53 Respirations: 14 Pulse Ox (%): 95 - Physical Exam General: Alert, In no apparent distress, Oriented x3, Obese HEENT: Atraumatic, Normocephalic Neck: Supple, JVD not distended Respiratory: Clear to auscultation bilaterally, Normal air movement Cardiovascular: Normal pulses, Other (Bradycardia) Capillary refill: <2 Seconds Gastrointestinal: Normal bowel sounds, Soft and benign Musculoskeletal: No clubbing, No swelling Integumentary: No breakdown, No significant lesion Neurological: Normal speech, Normal strength at 5/5 x4 extr - Studies Laboratory Data (last 24 hrs) 07/04/23 07/04/23 07/04/23 05:25 05:25 05:25 WBC 4.10 L Hgb 13.0 L Hct 39.9 Plt Count 111 L PT 14.1 H INR 1.29 Sodium 140 Potassium 4.0 BUN 21 H Creatinine 1.32 H Glucose 98 Magnesium 2.2 Total Bilirubin 0.6 AST 13 L ALT 26 Alkaline Phosphatase 76 Lipase 13 05/03/24 05/03/24 05/03/24 04:42 04:42 04:42 WBC Cancelled Hgb Cancelled Hct Cancelled Plt Count Cancelled PT Cancelled INR Cancelled Sodium Cancelled Potassium Cancelled BUN Cancelled Creatinine Cancelled Glucose Cancelled Magnesium Cancelled Total Bilirubin Cancelled AST Cancelled ALT Cancelled Alkaline Phosphatase Cancelled Lipase Cancelled Microbiology Data (last 24 hrs): 07/04/23 05:25 Nasopharnyx Influenza Type A Antigen Screen - Final 07/04/23 05:25 Nasopharnyx Influenza Type B Antigen Screen - Final Assessment and Plan - Plan Assessment/Plan symptomatic bradycardia Weakness Echo ordered Cardiology consult Blood cultures,canceled Flu A&B negative EKG BP 160 / 84; Pulse 63; Resp 16; Temp 98; Pulse Ox 100% on R/A; Weight 133.81 k NIHSS 0 EKG Rate is 68 beats/min. Rhythm is regular. QRS [place] is Normal. [place] interval is normal. QRS interval is normal. QT interval is normal. No Q waves. T waves are Normal. No ST changes noted. Clinical impression: NSR w/ Non-specific ST/T Changes and No evidence of ischemia Essential hypertension Resume appropriate home Full code DVT Diet cardiac Disposition Home independent prior Discharge Plan: Home - Advance Directives Does patient have a Living Will: No Does patient have a Durable POA for Healthcare: No - Code Status/Comfort Care Code Status: Full Code Critical Care: No Time Spent Managing Pts Care (In Minutes): 55
[2023-07-05 12:27] LABS: Absolute Eosinophils 0.1 K/uL (0-0.5); Absolute Lymphocytes (CBC) 0.5 K/uL (0.7-4.9); Absolute Monocytes 0.4 K/uL (0.1-1.3); Absolute Neutrophil 3.4 K/uL (1.8-8.0); Basophils % 0.5 % (0-1.3); Eosinophils % 2.1 % (0-4.4); Lymphocytes % 12.1 % (15.3-44.8); MCH 31.9 pg (27.0-35.0); MCHC 32.4 g/dL (32.0-36.0); MCV 98.6 fL (80-100); Monocytes % 8.7 % (3.3-12.3); Neutrophils % 76.6 % (41.7-73.7); Platelets 112 thou/uL (152-406); RBC Red Blood Cell Count 4.06 M/uL (4.33-5.43); Red Cell Distribution Width 14.4 % (12.1-15.2)
[2023-07-05 12:51] LABS: Anion Gap 6.2 mEq/L (5.0-15.0); Magnesium 2.1 mg/dL (1.6-2.4); Potassium 4.2 mEq/L (3.5-5.1); Thyroid Stimulating Hormone 0.458 uIU/mL (0.358-3.740)
[2023-07-05 14:35] VITALS: O2SAT 99; BMI 40.8
[2023-07-05 16:13] VITALS: BP 113/77; TEMP 97.7
--- NOTE | 2023-07-06 07:23 | P.DS ---
Admission Date: 07/04/23 Discharge Date: 07/06/23 Disposition: ROUTINE DISCHARGE Discharge Condition: GOOD Reason for Admission: Bradycardia Brief History of Present Illness: 73-year-old male with a past medical history of hypertension presented with weakness, bradicardia,. He reports symptoms starteD prior to arrival, he reports weakness over the last week. No reported syncope, no reported chest pain, shortness of breath. No reported fever, nausea vomiting diarrhea plan to admit for symptomatic bradycardia, weakness, cardiology consulted. Laboratory evaluate troponin normal, elevated BNP, no reported shortness of breath General: Alert, In no apparent distress, Oriented x3, Obese HEENT: Atraumatic, Normocephalic Neck: Supple, JVD not distended Respiratory: Clear to auscultation bilaterally, Normal air movement Cardiovascular: Normal pulses, Other (Bradycardia) Capillary refill: <2 Seconds Gastrointestinal: Normal bowel sounds, Soft and benign Musculoskeletal: No clubbing, No swelling Integumentary: No breakdown, No significant lesion Neurological: Normal speech, Normal strength at 5/5 x4 extr Hospital Course: 73-year-old male with a past medical history of hypertension was presented with weakness, bradycardia. He denies history of cardiovascular diseasE, no reported AR or CVA, vital signs stable on evaluation 134/63 heart rate 67, troponin is negative. Cardiology was consulted and noted to have atypical chest pain plan to schedule outpatient stress test, follow-up with cardiology outpatient mildly elevated BNP per cardiology likely chronic congestive heart failure. Will need echo outpatient Assessment Weakness-likely underlying chronic CHF, elevated BNP will need to follow-up with cardiology outpatient for outpatient stress test, outpatient echo Bradycardia, heart rate, vital signs stable while inpatient. Monitor vital signs outpatient tachycardic cardiology appoint Hypertension blood pressure controlled on 4 statin, continue, add aspirin 81 mg daily, lipid panel, Follow-up with primary care in 1-2 Follow-up with cardiology for cardiology echo, stress test outpatient Abnormal lab values mildly elevated BNP, troponins are normal Continue home medicines as previously prescribed GOAL: Clear understanding of disease process INSTRUCTIONS: Physician Discharge Instructions: -Follow-up with PCP in 1 to 2 weeks -Please call Dr. Garcia at [phone] if any questions regarding hospital stay -Please call nursing station at [phone] if any nursing or medication questions -Return to the emergency room if symptoms worsen Diet: ADA, low sodium Activity: Fall precautions Vital Signs/Physical Exam: Temp Pulse Resp BP Pulse Ox 97.7 F 87 16 113/77 97 07/05/23 15:53 07/05/23 15:53 07/05/23 15:53 07/05/23 15:53 07/05/23 15:53 Laboratory Data at Discharge: WBC 4.40 thou/uL (4.3-10.9) 07/05/23 12:18 Hgb 13.0 g/dL (13.6-17.9) L 07/05/23 12:18 Hct 40.0 % (39.6-49.0) 07/05/23 12:18 Plt Count 112 thou/uL (152-406) L 07/05/23 12:18 PT 14.1 SECONDS (9.5-12.5) H 07/04/23 05:25 INR 1.29 07/04/23 05:25 Sodium 142 mEq/L (136-145) 07/05/23 12:18 Potassium 4.2 mEq/L (3.5-5.1) 07/05/23 12:18 BUN 23 mg/dL (7-18) H 07/05/23 12:18 Creatinine 1.29 mg/dL (0.70-1.30) 07/05/23 12:18 Glucose 104 mg/dL (74-106) 07/05/23 12:18 Magnesium 2.1 mg/dL (1.6-2.4) 07/05/23 12:18 Total Bilirubin 0.6 mg/dL (0.2-1.0) 07/04/23 05:25 AST 13 U/L (15-37) L 07/04/23 05:25 ALT 26 U/L (16-61) 07/04/23 05:25 Alkaline Phosphatase 76 U/L (45-117) 07/04/23 05:25 Lipase 13 U/L (13-75) 07/04/23 05:25 Home Medications: Valsartan [Diovan] 80 mg PO DAILY #30 tab 07/05/23 New Medications: Valsartan [Diovan] 80 mg PO DAILY #30 tab Physician Discharge Instructions: -DC IV and DC home -Follow-up with PCP in 1 to 2 weeks -Follow-up with Cardiology in 1 to 2 weeks -Please call Dr. Garica at [phone] if any questions regarding hospital stay -Please call nursing station at [phone] if any nursing or medication questions -Return to the emergency room if symptoms worsen Diet: AHA Activity: Fall precautions Followup: NONE,NONE [Primary Care Provider] - Yeison Headley MD [ACTIVE - CAN ADMIT] - Time spent managing pt's care (in minutes): 55
== END 2023-07-05 16:00 | disposition home or self-care (01) ==
LOC: ER 04:28 → ERHOLD 07:00 → 2ND 10:46
PROVIDERS: ADMIT Hospitalist; ATTEND Hospitalist
DX: R00.1 Bradycardia, unspecified (principal); R53.1 Weakness; I10 Essential (primary) hypertension; R79.89 Other specified abnormal findings of blood chemistry; Z11.52 Encounter for screening for COVID-19; Z88.8 Allergy status to other drugs, medicaments and biological substances
CPT/HCPCS: 93005; 87040 ×2; 85025 ×2; 81001; 80048 ×2; 36415 ×2; 83735 ×2; 85610; 80076; 83605; 84443; 84484 ×2; 84439; 83690; 83880 ×2; 87804 ×2; 71275; 74175; 71045; 96374; 99285; 87811; Q9967; G0378 ×4

== ENCOUNTER 2024-02-26 17:22 | Emergency (ER) | payer OTHER ==
--- OUTSIDE RECORDS SUMMARY | 2024-02-26 17:24 | XMS REPORT | Clinical Summary ---
Author Name Unknown Organization [facility] Address [address] [place] [address] Care Team Providers Care Hoop Coiler Name Role Phone Jens Robbins MD Unavailable [phone] Henry Baird MD Primary Care Provider [phone] Floyd Cruz MD Unavailable [phone]- [phone] Allergies Active Allergy Reactions Criticality Noted Date Comments Gatifloxacin 07/21/2017 Medications valsartan (DIOVAN) 320 mg tablet Take 320 mg by mouth daily. Active clonazePAM (KlonoPIN) 0.5 mg tablet Take 0.5 mg by mouth as needed. Active ARIPiprazole (ABILIFY) 2 mg tablet Take 2 mg by mouth. Active hydroCHLOROthiaz arianne (HYDRODIURIL) 25 mg tablet Take 25 mg by mouth 2 (two) times a week [facility]. Active cyanocobalamin (VITAMIN B-12) 1000 mcg tablet Take 1,000 mcg by mouth daily. Active aspirin 81 mg EC tablet Take 81 mg by mouth. Active magnesium oxide (MAOX) 400 mg tablet Take 400 mg by mouth daily. Active Active Problems Problem Noted Date Diagnosed Date Elevated prostate specific antigen (PSA) 018 Social History Tobacco Use Types Packs/Day Years Used Date Smoking Tobacco: Never Assessed Sex and Gender Information Value Date Recorded Sex Assigned at Not on file Legal Sex Male 11:29 AM CDT Gender Identity Not on file Sexual Orientation Not on file Obstetrics History Plan of Treatment Health Maintenance Due Date Last Done Comments Pneumococcal Vaccine: 65+ Years (1 of 1 - PCV) 014 COVID-19 Vaccine (1 - 2023- season) 2023 Influenza Vaccine (#1) 2023 Insurance MEDICARE PART A AND B [facility] MED[facility] PART [facility] AND B [facility] MEDICARE PART A AND B [facility] H[facility] Care Teams Hoop Coiler Relationship Specialty Start Date End Date Jens Robbins MD [address] [place] [id number] [email or web address] PCP - External Primary Care Provider Family Practice 06/04/17 [place] [address] [place] [phone] [email or web address] PCP - General Urology 06/04/17 Floyd Cruz MD [address] [place] [address] PCP - External Referring Urology 06/11/17
[2024-02-26 18:04] LABS: Absolute Eosinophils 0.1 K/uL (0-0.5); Absolute Lymphocytes (CBC) 0.9 K/uL (0.7-4.9); Absolute Monocytes 0.4 K/uL (0.1-1.3); Absolute Neutrophil 3.3 K/uL (1.8-8.0); Basophils % 0.7 % (0-1.3); Eosinophils % 2.1 % (0-4.4); Hematocrit 42.3 % (39.6-49.0); Hemoglobin 14.1 g/dL (13.6-17.9); Lymphocytes % 19.2 % (15.3-44.8); MCH 32.8 pg (27.0-35.0); MCHC 33.3 g/dL (32.0-36.0); MCV 98.4 fL (80-100); MPV 10.3 fL (7.6-11.3); Monocytes % 9.4 % (3.3-12.3); Neutrophils % 68.6 % (41.7-73.7); Nucleated Red Blood Cells % 0.1 % (0-0); Platelets 120 thou/uL (152-406); Red Cell Distribution Width 14.1 % (12.1-15.2)
[2024-02-26] MEDS ORDERED: FUROSEMIDE 40 MG/4 ML VIAL ONE (18:11)
--- NOTE | 2024-02-26 18:14 | RAD REPORT ---
EXAMINATION: ONE VIEW CHEST XR CLINICAL INDICATION: SOB TECHNIQUE: Frontal chest projection is submitted. Examination is limited by patient positioning and t echnique. COMPARISON: 07/04/2023 FINDINGS: Mild interstitial pulmonary edema. Trace right pleural effusion. The heart is moderately enlarged. No displaced fractures identified. IMPRESSION: Mild CHF.
[2024-02-26 18:26] LABS: Anion Gap 5.2 mEq/L (5.0-15.0); Magnesium 2.3 mg/dL (1.6-2.4); Potassium 4.2 mEq/L (3.5-5.1); Troponin High Sensitivity 26.3 pg/mL (<58.9)
[2024-02-26 19:15] LABS: Sqamous Epithelial None Seen /HPF (None Seen); Urine Bacteria None Seen /HPF (<20); Urine Bilirubin NEGATIVE (Negative); Urine Blood Trace (Negative); Urine Clarity Clear (Clear); Urine Color Colorless (Yellow); Urine Culture Reflex Order NOT NEEDED; Urine Glucose NEGATIVE (Negative); Urine Ketones NEGATIVE (Negative); Urine Micro Reflex YN NO BILL MICROSCOPIC; Urine Nitrite NEGATIVE (Negative); Urine Protein NEGATIVE (Negative); Urine RBC <5 /HPF (None Seen); Urine Urobilinogen Normal (Normal); Urine WBC <5 /HPF (<5); Urine pH 6.5 (5.0-7.0)
--- NOTE | 2024-02-26 20:22 | ER ---
Nurse's Notes [facility] Name: Job Branch Jr Age: 73 yrs Sex: Male : 1950 Arrival Date: 02/26/2024 Time: 17:22 Bed 5 Private MD: Diagnosis: Unspecified combined systolic (congestive) and diastolic (congestive) heart failure;Shortness of breath Presentation: 02/25 17:44 Chief complaint: Patient states: feeling short of breath, some pain in the upper ko1 abdomen. Coronavirus screen: At this time, the client does not indicate any symptoms associated with coronavirus-19. Ebola Screen: No symptoms or risks identified at this time. Initial Sepsis Screen: Does the patient meet any 2 criteria? No. Patient's initial sepsis screen is negative. Does the patient have a suspected source of infection? No. Patient's initial sepsis screen is negative. Risk Assessment: Do you want to hurt yourself or someone else? Patient reports no desire to harm self or others. Onset of symptoms was February 26, 2024. 17:44 Method Of Arrival: Ambulatory ko1 17:44 Acuity: SOLANGE 3 ko1 Triage Assessment: 17:45 General: Appears in no apparent distress. Behavior is calm, cooperative, appropriate ko1 for age. Pain: Complains of pain in left upper quadrant. Respiratory: Reports shortness of breath Onset: The symptoms/episode began/occurred gradually, the patient has mild shortness of breath. Historical: - Allergies: 17:45 Tequins; ko1 17:45 tramadol; ko1 - PMHx: 17:45 Hypertension; Congestive heart failure; ko1 - PSHx: 17:45 Appendectomy; back; ko1 - Immunization history:: Adult Immunizations unknown. - Infectious Disease History:: Denies. - Social history:: Smoking status: Patient denies any tobacco usage or history of. Screenin:54 [facility] ED Fall Risk Assessment (Adult) History of falling in the last 3 months, ld1 including since admission No falls in past 3 months (0 pts) Confusion or Disorientation No (0 pts) Intoxicated or Sedated No (0 pts) Impaired Gait No (0 pts) Mobility Assist Device Used No (0 pt) Altered Elimination No (0 pt) Score/Fall Risk Level 0 - 2 = Low Risk Oriented to surroundings, Maintained a safe environment, Educated pt \T\ family on fall prevention, incl call for assistance when getting out of bed, Assessed \T\ reinforced patient's understanding of fall precautions, Provided non-skid footwear, Hourly rounding (assess needs \T\ fall precautionary measures) done, Used ambulatory aids as needed (educated on \T\ assisted with), Used gait belt as appropriate. Abuse screen: Denies threats or abuse. Denies injuries from another. Nutritional screening: No deficits noted. Tuberculosis screening: No symptoms or risk factors identified. Assessment: 17:54 General: Appears in no apparent distress. comfortable, Behavior is calm, cooperative, ld1 appropriate for age. Pain: Denies pain. Pain: Complains of pain in epigastric area, right upper quadrant and left upper quadrant Pain does not radiate. Pain currently is 7 out of 10 on a pain scale. Quality of pain is described as throbbing. Neuro: [place] Agitation-Sedation Scale (RASS):. Neuro: Level of Consciousness is awake, alert, obeys commands, Oriented to person, place, time, situation, Appropriate for age. Cardiovascular: Capillary refill < 3 seconds Patient's skin is warm and dry. Rhythm is sinus rhythm. Respiratory: Airway is patent Respiratory effort is even, unlabored, Breath sounds are clear bilaterally. GI: Abdomen is round non-distended, Reports upper abdominal pain. : No signs and/or symptoms were reported regarding the genitourinary system. EENT: No signs and/or symptoms were reported regarding the EENT system. Derm: No signs and/or symptoms reported regarding the dermatologic system. Musculoskeletal: No signs and/or symptoms reported regarding the musculoskeletal system. 19:04 Reassessment: Patient appears in no apparent distress at this time. No changes from cp4 previously documented assessment. Patient and/or family updated on plan of care and expected duration. Pain level reassessed. Vital Signs: 17:44 BP 130 / 81; Pulse 71; Resp 16; Temp 98; Pulse Ox 97% on R/A; ko1 17:54 BP 131 / 55; Pulse 45; Resp 18; Pulse Ox 100% on R/A; Pain 7/10; ld1 19:07 BP 135 / 80; Pulse 62; Resp 18; Pulse Ox 94% ; cp4 20:00 BP 111 / 73; Pulse 57; Resp 18; Pulse Ox 95% ; cp4 20:30 BP 105 / 72; Pulse 57; Resp 18; Pulse Ox 100% ; cp4 17:54 Pain Scale: Adult ld1 ED Course: 17:24 Patient arrived in ED. mr 17:45 Triage completed. ko1 17:45 Arm band placed on right wrist. Patient placed in an exam room, on a stretcher, Patient ko1 notified of wait time. 17:53 Lorie Chi, RN is Primary Nurse. ld1 17:54 Patient has correct armband on for positive identification. Placed in gown. Bed in low ld1 position. Call light in reach. Side rails up X2. lunch cook on. Pulse ox on. NIBP on. Door closed. Noise minimized. Warm blanket given. 17:54 Inserted saline lock: 20 gauge in right antecubital area, using aseptic technique. ld1 Blood collected. Flushed with 10 mL NS. 17:54 No provider procedures requiring assistance completed. ld1 17:56 Lorenzo Chand PA is PHCP. cp 17:56 Fanny Rosenbaum MD is Attending Physician. cp 18:03 XRAY Chest (1 view) In Process Unspecified. EDMS 19:06 Urine collected: clean catch specimen, clear. cp4 20:31 Provided Education on: heart failure. cp4 20:31 intact, bleeding controlled, No redness/swelling at site. Pressure dressing applied. cp4 Administered Medications: 18:33 Drug: Furosemide IVP 40 mg IVP once; give over 2 minutes Route: IVP; Site: right ld1 antecubital; 20:30 Follow up: Response: No adverse reaction cp4 Medication: 17:54 VIS not applicable for this client. ld1 Outcome: 20:21 Discharge ordered by . cp 20:31 Discharged to home ambulatory, cp4 20:31 Condition: stable 20:31 Discharge instructions given to patient, family, Instructed on discharge instructions, follow up and referral plans. medication usage, Demonstrated understanding of instructions, follow-up care, medications, Prescriptions given X 1, 20:32 Patient left the ED. cp4 Signatures: Dispatcher [employer] EDTN Becca Nuñez, Reg Reg mr Lorenzo Chand PA PA cp Lorie Chi RN RN ld1 Kacie Dye RN RN ko1 Shilpa Torres cp4
--- NOTE | 2024-02-26 20:22 | EDPHYS ---
Physician Documentation [facility] Name: Job Branch Jr Age: 73 yrs Sex: Male : 1950 Arrival Date: 02/26/2024 Time: 17:22 Bed 5 Private MD: ED Physician Fanny Rosenbaum HPI: 02/25 18:00 This 73 yrs old Male presents to ER via Ambulatory with complaints of Breathing cp Difficulty, Doesn't Feel Right. 18:00 The patient has shortness of breath with light activity. cp 18:00 Onset: The symptoms/episode began/occurred gradually, and became worse today. cp 18:00 Duration: The symptoms are continuous, and are steadily getting worse. Associated signs cp and symptoms: Pertinent positives: diaphoresis, fever, upper abdomen pain, Pertinent negatives:. Severity of symptoms: in the emergency department the symptoms are unchanged despite home interventions. Historical: - Allergies: 17:45 Tequins; ko1 17:45 tramadol; ko1 - PMHx: 17:45 Hypertension; Congestive heart failure; ko1 - PSHx: 17:45 Appendectomy; back; ko1 - Immunization history:: Adult Immunizations unknown. - Infectious Disease History:: Denies. - Social history:: Smoking status: Patient denies any tobacco usage or history of. ROS: 18:05 Constitutional: Negative for body aches, chills, fever, cp 18:05 Eyes: Negative for injury, pain, redness, and discharge, cp 18:05 ENT: Negative for drainage from ear(s), ear pain, sore throat, difficulty swallowing, difficulty handling secretions, 18:05 Cardiovascular: Negative for chest pain, palpitations, 18:05 Respiratory: Positive for shortness of breath, Negative for cough, wheezing, 18:05 Abdomen/GI: Positive for abdominal pain, nausea, Negative for vomiting, diarrhea, constipation, 18:05 Neuro: Negative for altered mental status, syncope, 18:05 All other systems are negative, Exam: 17:55 ECG was reviewed by the Attending Physician. cp 18:10 Constitutional: The patient appears in no acute distress, alert, awake, cp non-diaphoretic, non-toxic, well developed, well nourished, obese, 18:10 Head/Face: Normocephalic, atraumatic. cp 18:10 Eyes: Periorbital structures: appear normal, Conjunctiva: normal, no exudate, no injection, Sclera: no appreciated abnormality, Lids and lashes: appear normal, bilaterally, 18:10 ENT: External ear(s): are unremarkable, Nose: is normal, Mouth: Lips: moist, Oral mucosa: pink and intact, moist, Posterior pharynx: Airway: no evidence of obstruction, patent, 18:10 Chest/axilla: Inspection: normal, 18:10 Cardiovascular: Rate: normal, Rhythm: regular, Edema: ankle edema, that is mild, JVD: is not appreciated, 18:10 Respiratory: the patient does not display signs of respiratory distress, Respirations: normal, no use of accessory muscles, no retractions, labored breathing, is not present, Breath sounds: are clear throughout, stridor, is not appreciated, wheezing: is not appreciated, 18:10 Abdomen/GI: Inspection: obese Bowel sounds: active, all quadrants, Palpation: soft, in all quadrants, mild abdominal tenderness, in the epigastric area, right upper quadrant and left upper quadrant, rebound tenderness, is not appreciated, involuntary guarding, is not appreciated, 18:10 Back: CVA tenderness, is absent, 18:10 Neuro: Orientation: to person, place \T\ time. Mentation: is normal, Cerebellar function: is grossly normal, Motor: moves all fours, no focal deficits, Sensation: no obvious gross deficits, Vital Signs: 17:44 BP 130 / 81; Pulse 71; Resp 16; Temp 98; Pulse Ox 97% on R/A; ko1 17:54 BP 131 / 55; Pulse 45; Resp 18; Pulse Ox 100% on R/A; Pain 7/10; ld1 19:07 BP 135 / 80; Pulse 62; Resp 18; Pulse Ox 94% ; cp4 20:00 BP 111 / 73; Pulse 57; Resp 18; Pulse Ox 95% ; cp4 20:30 BP 105 / 72; Pulse 57; Resp 18; Pulse Ox 100% ; cp4 17:54 Pain Scale: Adult ld1 MDM: 17:56 Medical Screening Exam initiated cp 20:20 Data reviewed: vital signs, nurses notes, lab test result(s), EKG, radiologic studies, cp plain films, and as a result, I will discharge patient. 20:20 Differential diagnosis: CHF exacerbation, Chronic Obstructive Pulmonary Disease cp Myocardial Infarction pneumonia, Pneumothorax pulmonary edema, Pulmonary Embolism Sepsis Unstable Angina. Consideration of Admission/Observation Escalation of care including admission/observation considered. I considered the following discharge prescriptions or medication management in the emergency department Medications were administered in the Emergency Department. See MAR. Counseling: I had a detailed discussion with the patient and/or guardian regarding the historical points, exam findings, and any diagnostic results supporting the discharge/admit diagnosis, lab results, radiology results, the need for outpatient follow up, a family practitioner, to return to the emergency department if symptoms worsen or persist or if there are any questions or concerns that arise at home. Response to treatment: the patient's symptoms have mildly improved after treatment, and as a result, I will discharge patient. 02/25 17:54 Order name: Basic Metabolic Panel; Complete Time: 19:16 ld1 02/25 19:16 Interpretation: Normal except: CL 110; GLUC 110; BUN 30; CRE 1.60; GFR 45. 02/25 17:54 Order name: CBC with Diff; Complete Time: 18:18 ld1 02/25 18:18 Interpretation: Normal except: RBC 4.30; PLT 120. 02/25 17:54 Order name: Troponin HS; Complete Time: 19:16 ld1 02/25 19:17 Interpretation: Reviewed. 02/25 18:05 Order name: Urinalysis W/Microscopic; Complete Time: 19:16 02/25 18:14 Order name: NT PRO-BNP; Complete Time: 19:16 EDTN 02/25 19:16 Interpretation: Abnormal: NT PRO-BNP 485. 02/25 18:14 Order name: Magnesium; Complete Time: 19:16 EDMS 02/25 17:54 Order name: XRAY Chest (1 view); Complete Time: 18:18 ld1 02/25 18:18 Interpretation: Report review. 02/25 17:54 Order name: Cardiac monitoring; Complete Time: 17:54 ld1 02/25 17:54 Order name: EKG - Nurse/Tech; Complete Time: 17:54 ld1 02/25 17:54 Order name: IV Saline Lock; Complete Time: 17:54 ld1 02/25 17:54 Order name: Labs collected and sent; Complete Time: 17:56 ld1 02/25 17:54 Order name: O2 Per Protocol; Complete Time: 17:54 ld1 02/25 17:54 Order name: O2 Sat Monitoring; Complete Time: 17:54 ld1 02/25 19:18 Order name: Misc. Order; Complete Time: 19:21 cp EC:55 Rate is 62 beats/min. Rhythm is regular. NC interval is normal. QRS interval is normal. cp QT interval is normal. T waves are Inverted in leads I, aVL. Interpreted by me. Reviewed by me. Administered Medications: 18:33 Drug: Furosemide IVP 40 mg IVP once; give over 2 minutes Route: IVP; Site: right ld1 antecubital; 20:30 Follow up: Response: No adverse reaction cp4 Disposition Summary: 02/26/24 20:21 Discharge Ordered Notes: Location: Home cp Problem: an acute exacerbation cp Symptoms: have improved cp Condition: Stable cp Diagnosis - Unspecified combined systolic (congestive) and diastolic (congestive) heart failure cp - Shortness of breath cp Followup: cp - With: Private Physician - When: 2 - 3 days - Reason: Recheck today's complaints Discharge Instructions: - Discharge Summary Sheet cp - Heart Failure, Diagnosis cp - Shortness of Breath, Adult cp - Heart-Healthy Eating Plan cp - Heart Failure, Self-Care cp - Heart Failure Medicines cp Forms: - Medication Reconciliation Form cp - Antibiotic Education cp - Prescription Opioid Use cp - Patient Portal Instructions cp - Leadership Thank You Letter cp Prescriptions: - furosemide 40 mg Oral tablet - take 1 tablet ORAL route every morning for 5 days; 5 tablet; Refills: 0, cp Product Selection Permitted Addendum: 02/27/2024 23:50 Co-signature as Attending Physician, Fanny Rosenbaum MD I reviewed the patient's care s d2 provided by the Advanced Practice Provider and agree with the diagnosis and treatment plan. Signatures: Dispatcher [employer] EDMS Lorenzo Chand PA PA cp Lorie Chi RN RN [email or web address] Fanny Rosenbaum MD MD sd2 Kacie Dye RN RN ko1 Shilpa Torres cp4 Corrections: (The following items were deleted from the chart) 02/25 18:15 18:05 PROBNP+C.LAB.BRZ ordered. EDMS EDMS 18:15 18:05 MAGNESIUM+C.LAB.BRZ ordered. EDMS EDMS
[2024-02-26 20:46] VITALS: TEMP 98
[2024-02-26 20:53] VITALS: BP 105/72; O2SAT 100
--- NOTE | 2024-03-01 11:21 | EKG ---
Test Date: 2024-02-26 Test Time: 17:49:04 Home Health Care Provider: MAXIM MEASUREMENT RESULTS: Intervals: Rate: 62 NC: 196 QRSD: 98 QT: 446 QTc: 452 Jewett: P: NC: 196 QRS: 195 T: 192 INTERPRETIVE STATEMENTS: Sinus rhythm with frequent premature ventricular complexes Otherwise normal ECG Compared to ECG 07/04/2023 04:55:59 T-wave abnormality no longer present Electronically Signed On 03-01-24 11:14:42 BINDERY MACHINE TENDER by Melecio Muñoz
== END 2024-02-26 20:32 | disposition home or self-care (01) ==
LOC: ER 17:22
DX: I50.40 Unspecified combined systolic (congestive) and diastolic (congestive) heart failure (principal); R10.9 Unspecified abdominal pain; I10 Essential (primary) hypertension
CPT/HCPCS: 93005; 85025; 81001; 80048; 36415; 83735; 84484; 83880; 71045; 96374; 99285; J1940

== ENCOUNTER 2024-03-22 05:01 | Emergency (ER) | payer OTHER ==
--- OUTSIDE RECORDS SUMMARY | 2024-03-22 05:04 | XMS REPORT | Clinical Summary ---
Author Name Unknown Organization [facility] [place] Address [address] [place] [address] Care Team Providers Care Engineering Aid Name Role Phone Jens Robbins MD Unavailable [phone] Henry Baird MD Primary Care Provider Floyd Cruz MD Unavailable [phone]- [phone] Allergies Active Allergy Reactions Criticality Noted Date Comments Gatifloxacin 07/21/2017 Medications valsartan (DIOVAN) 320 mg tablet Take 320 mg by mouth daily. Active clonazePAM (KlonoPIN) 0.5 mg tablet Take 0.5 mg by mouth as needed. Active ARIPiprazole (ABILIFY) 2 mg tablet Take 2 mg by mouth. Active hydroCHLOROthiaz arianne (HYDRODIURIL) 25 mg tablet Take 25 mg by mouth 2 (two) times a week [facility]. Active cyanocobalamin (VITAMIN B-12) 1000 mcg [...] 2023 Insurance MEDICARE PART A AND B [facility] [facility] Address: [facility] [id number] [place] [address] MEDICARE PART A AND B [facility] MEDICARE PART A AND B [facility] HMO Care Teams Engineering Aid Relationship Specialty Start Date End Date Jens Robbins MD [address] [place] [id number] [email or web address] PCP - External Primary Care Provider Family Practice 06/04/17 [place] [address] [place] [email or web address] PCP - General Urology 06/04/17 Floyd Cruz MD [address] [address] PCP - External Referring Urology 06/11/17
[2024-03-22] MEDS ORDERED: DIPHENHYDRAMINE 50 MG/ML VIAL ONE (05:24)
[2024-03-22] MEDS ORDERED: METOCLOPRAMIDE 10 MG/2mL INJ ONE (05:24)
[2024-03-22] MEDS ORDERED: NA CHLORIDE 0.9% 500 ML ONE (05:24)
[2024-03-22] MEDS ORDERED: KETOROLAC 30 MG/ML INJ ONE (05:24)
[2024-03-22 06:13] LABS: PT Prothrombin Time 13.4 SECONDS (9.4-12.5); Protime INR 1.28
[2024-03-22 06:15] LABS: Absolute Eosinophils 0.1 K/uL (0-0.5); Absolute Lymphocytes (CBC) 0.8 K/uL (0.7-4.9); Absolute Monocytes 0.3 K/uL (0.1-1.3); Absolute Neutrophil 2.7 K/uL (1.8-8.0); Basophils % 0.4 % (0-1.3); Eosinophils % 2.4 % (0-4.4); Hematocrit 42.8 % (39.6-49.0); Hemoglobin 14.3 g/dL (13.6-17.9); MCH 32.9 pg (27.0-35.0); MCHC 33.5 g/dL (32.0-36.0); MCV 98.3 fL (80-100); MPV 10.5 fL (7.6-11.3); Monocytes % 8.6 % (3.3-12.3); Neutrophils % 67.6 % (41.7-73.7); Nucleated Red Blood Cells % 0.3 % (0-0); Platelets 122 thou/uL (152-406); RBC Red Blood Cell Count 4.35 M/uL (4.33-5.43); Red Cell Distribution Width 14.1 % (12.1-15.2)
--- NOTE | 2024-03-22 06:17 | RAD REPORT ---
EXAM DESCRIPTION: CT of the head without contrast CLINICAL HISTORY: HEADACHE COMPARISON: None available TECHNIQUE: Axial CT of the head obtained from the skull apex to the skull base without contrast. This exam was performed according to our departmental dose-optimization program, which includes automated exposure control, adjustment of the mA and/or kV according to patient size and/or use of it erative reconstruction technique. FINDINGS: No acute intracranial hemorrhage identified. No mass, mass effect, shift of the midline, abnormal ext ra-axial fluid collection or CT evidence of acute ischemic change identified. The ventricular system and sulcal spaces are mildly enlarged compatible with mild cerebral atrophy. Scattered areas of hypodensity throughout the supratentorial white matter are nonspecific and may be related to chronic small vessel ischemic change. Polypoid mucosal thickening of the left maxillary sinus. Mastoid air cells are well aerated. No skull fracture identified. Visualized orbits and globes are unremarkable. Atherosclerotic calcification of the intracranial internal carotid arteries. IMPRESSION: 1. No acute intracranial abnormality by CT criteria. Electronically signed by: Ramsey Saeed DO 03/22/2024 06:12 AM [facility] [id number] Due to temporary technical issues with the PACS/[employer] reporting system, reports are being brandon d by the in-house radiologist without review as a courtesy to ensure prompt reporting the interpreting radiologist is fully responsible for the content of the report. Transcribed Date/Time: 03/22/2024 6:16 AM
[2024-03-22 06:34] LABS: Albumin 3.8 g/dL (3.4-5.0); Anion Gap 6.8 mEq/L (5.0-15.0); Bilirubin Direct 0.2 mg/dL (0-0.2); Bilirubin Indirect, Calculated 0.6 mg/dL (0.2-0.8); Bilirubin Total 0.8 mg/dL (0.2-1.0); Globulin 3.9 g/dL (2.3-3.5); Magnesium 2.2 mg/dL (1.6-2.4); Potassium 3.8 mEq/L (3.5-5.1); Protein, Total 7.7 g/dL (6.4-8.2); Thyroid Stimulating Hormone 1.08 uIU/mL (0.358-3.740); Troponin High Sensitivity 36.9 pg/mL (<58.9)
--- NOTE | 2024-03-22 06:54 | ER ---
Nurse's Notes [facility] Name: Job Branch Jr Age: 73 yrs Sex: Male : 1950 Arrival Date: 03/22/2024 Time: 05:01 Bed 6 Private MD: Diagnosis: Palpitations Presentation: 03/22 05:23 Chief complaint: Patient states: Just had my bp medicine changed two days ago and woke vc1 up around 0100 with my heart racing and can feel my heart beat in my head. It still feels like it is racing. Coronavirus screen: Client denies travel out of the [place] in the last 14 days. At this time, the client does not indicate any symptoms associated with coronavirus-19. Ebola Screen: Patient negative for fever greater than or equal to 101.5 degrees Fahrenheit, and additional compatible Ebola Virus Disease symptoms Patient denies exposure to infectious person. Patient denies travel to an Ebola-affected area in the 21 days before illness onset. No symptoms or risks identified at this time. Initial Sepsis Screen: Does the patient meet any 2 criteria? No. Patient's initial sepsis screen is negative. Does the patient have a suspected source of infection? No. Patient's initial sepsis screen is negative. Risk Assessment: Do you want to hurt yourself or someone else? Patient reports no desire to harm self or others. Onset of symptoms was March 22, 2024 at 01:00. Care prior to arrival: None. Activity prior to arrival: None. 05:23 Method Of Arrival: Wheelchair vc1 05:23 Acuity: SOLANGE 3 vc1 Triage Assessment: 05:29 General: Appears in no apparent distress. uncomfortable, obese, well groomed, well vc1 developed, well nourished, Behavior is cooperative, anxious. Pain: Denies pain. EENT: No deficits noted. No signs and/or symptoms were reported regarding the EENT system. Neuro: Level of Consciousness is awake, alert, obeys commands, Oriented to person, place, time, situation, Appropriate for age. Neuro: Reports throbbing in head. Denies blurred vision dizziness, headache. Cardiovascular: Capillary refill < 3 seconds Patient's skin is warm and dry. Respiratory: Airway is patent Respiratory effort is even, unlabored, Respiratory pattern is symmetrical, tachypnea. GI: Abdomen is round non-distended, obese. : No deficits noted. No signs and/or symptoms were reported regarding the genitourinary system. Derm: Skin is intact, is healthy with good turgor, Skin is dry, Skin is normal, Skin temperature is warm. Musculoskeletal: Circulation, motion, and sensation intact. Range of motion: intact in all extremities. Historical: - Allergies: 05:27 Tequins; vc1 05:27 tramadol; vc1 - PMHx: 05:27 Congestive heart failure; Hypertension; vc1 - PSHx: 05:27 Appendectomy; back; vc1 - Immunization history:: Client reports receiving the 2nd dose of the Covid vaccine, Flu vaccine is not up to date. It has been more than one year since last vaccine. - Infectious Disease History:: Denies. - Social history:: Smoking status: Patient denies any tobacco usage or history of. - Family history:: not pertinent. Screenin:28 [facility] ED Fall Risk Assessment (Adult) History of falling in the last 3 months, vc1 including since admission No falls in past 3 months (0 pts) Confusion or Disorientation No (0 pts) Intoxicated or Sedated No (0 pts) Impaired Gait No (0 pts) Mobility Assist Device Used No (0 pt) Altered Elimination No (0 pt) Score/Fall Risk Level 0 - 2 = Low Risk Oriented to surroundings, Maintained a safe environment, Educated pt \T\ family on fall prevention, incl call for assistance when getting out of bed. Abuse screen: Denies threats or abuse. Nutritional screening: No deficits noted. Tuberculosis screening: No symptoms or risk factors identified. Assessment: 05:48 General:. General: Appears in no apparent distress. uncomfortable, Behavior is dd2 cooperative, appropriate for age, anxious. 05:48 Pain: Denies pain. Neuro: [place] Agitation-Sedation Scale (RASS): 0 - Alert and Calm dd2 Level of Consciousness is awake, alert, obeys commands, Oriented to person, place, time, situation, Appropriate for age Reports PULSATING IN HEAD, BUT DENIES PAIN. Cardiovascular: Reports FEELING RAPID HEART BEAT Denies chest pain, Heart tones S1 S2 present Patient's skin is warm and dry. Rhythm is sinus rhythm. Respiratory: No deficits noted. Airway is patent Respiratory effort is even, unlabored, Respiratory pattern is regular, symmetrical, Breath sounds are clear bilaterally. GI: No deficits noted. No signs and/or symptoms were reported involving the gastrointestinal system. Abdomen is non-distended, obese, Abd is soft and non tender X 4 quads. : No deficits noted. No signs and/or symptoms were reported regarding the genitourinary system. EENT: No deficits noted. No signs and/or symptoms were reported regarding the EENT system. Derm: No deficits noted. No signs and/or symptoms reported regarding the dermatologic system. Musculoskeletal: No deficits noted. No signs and/or symptoms reported regarding the musculoskeletal system. Circulation, motion, and sensation intact. Range of motion: intact in all extremities. Vital Signs: 05:23 BP 156 / 75; Pulse 68; Resp 25; Pulse Ox 100% ; Weight 132.45 kg; Height 5 ft. 11 in. ; vc1 Pain 0/10; 06:59 BP 121 / 71; Pulse 63; Resp 16; Temp 98.1; Pulse Ox 99% on R/A; dd2 05:23 Body Mass Index 40.73 (132.45 kg, 180.34 cm) vc1 05:23 Pain Scale: Adult vc1 Cary Coma Score: 05:49 Eye Response: spontaneous(4). Motor Response: obeys commands(6). Verbal Response: sp4 oriented(5). Total: 15. ED Course: 05:05 Patient arrived in ED. gm2 05:12 Alex Estrada MD is Attending Physician. sp4 05:21 JULIO CESAR FATIMA, RN is Primary Nurse. dd2 05:21 EKG done, by ED staff, reviewed by Alex Estrada MD. dd2 05:27 Triage completed. vc1 05:28 Arm band placed on left wrist. vc1 05:28 Patient has correct armband on for positive identification. Bed in low position. Call vc1 light in reach. Provided Education on: blood pressure. knee bolter on. Pulse ox on. NIBP on. 05:30 No provider procedures requiring assistance completed. vc1 05:32 Inserted saline lock: 20 gauge in right antecubital area, using aseptic technique. mm11 Blood collected. Flushed with 10 mL NS. 05:33 Basic Metabolic Panel Sent. mm11 05:33 CBC with Diff Sent. mm11 05:33 LFT's Sent. mm11 05:33 Magnesium Sent. mm11 05:33 NT PRO-BNP Sent. mm11 05:33 PT-INR Sent. mm11 05:34 Troponin HS Sent. mm11 05:50 CT Head Brain wo Cont In Process Unspecified. EDMS 06:59 IV discontinued, intact, bleeding controlled, No redness/swelling at site. Pressure dd2 dressing applied. Administered Medications: 05:30 Drug: NS 0.9% IV 500 ml 500 ml IV at 1 bolus once; to be given as a bolus over 30 ha1 minutes Volume: 500 ml; Route: IV; Rate: 1 bolus; Site: right antecubital; 06:30 Follow up: IV Status: Completed infusion; IV Intake: 1000ml dd2 05:32 Drug: Ketorolac IVP 15 mg IVP once Route: IVP; Site: right antecubital; ha1 05:47 Follow up: Response: No adverse reaction dd2 05:34 Drug: metoCLOPramide IVP 10 mg IVP once; over 1 to 2 minutes Route: IVP; Site: right ha1 antecubital; 05:49 Follow up: Response: No adverse reaction dd2 05:36 Drug: diphenhydrAMINE IVP 25 mg IVP once Route: IVP; Site: right antecubital; ha1 05:51 Follow up: Response: No adverse reaction dd2 Medication: 05:29 VIS not applicable for this client. vc1 Intake: 06:30 IV: 1000ml; Total: 1000ml. dd2 Outcome: 06:53 Discharge ordered by . sp4 06:59 Discharged to home ambulatory, dd2 06:59 Condition: stable 06:59 Discharge instructions given to patient, Instructed on discharge instructions, follow up and referral plans. Demonstrated understanding of instructions, follow-up care, 07:01 Patient left the ED. ll1 Signatures: Dispatcher [employer] EDMS Monica Oscar RN RN ll1 Debbie Hampton RN RN 1 Mehnaz John RN RN ha1 Alex Estrada MD MD sp4 Deepti Loyd 2 JULIO CESAR FATIMA RN RN dd2 julia vasquez mm11
--- NOTE | 2024-03-22 06:54 | EDPHYS ---
Physician Documentation [facility] Name: Job Branch Jr Age: 73 yrs Sex: Male : 1950 Arrival Date: 03/22/2024 Time: 05:01 Bed 6 Private MD: ED Physician Alex Estrada HPI: 03/22 05:12 This 73 yrs old Male presents to ER via Unassigned with complaints of High sp4 Blood Pressure, THROBING HEADACHE. 05:48 This is a very pleasant 73-year-old male who presents with acute throbbing headache, sp4 palpitations, and feeling unwell overall. Blood pressure at home was 170/110. Patient with woke up At 1 AM feeling heartbeat in his ears.. Historical: - Allergies: 05:27 Tequins; vc1 05:27 tramadol; vc1 - PMHx: 05:27 Congestive heart failure; Hypertension; vc1 - PSHx: 05:27 Appendectomy; back; vc1 - Immunization history:: Client reports receiving the 2nd dose of the Covid vaccine, Flu vaccine is not up to date. It has been more than one year since last vaccine. - Infectious Disease History:: Denies. - Social history:: Smoking status: Patient denies any tobacco usage or history of. - Family history:: not pertinent. ROS: 05:49 Constitutional: Negative for fever, chills, and weight loss, positive palpitations, sp4 positive headache, positive for feeling unwell 05:49 All other systems are negative, Exam: 05:49 Constitutional: This is a well developed, well nourished patient who is awake, alert, sp4 and in no acute distress. Head/Face: Normocephalic, atraumatic. Eyes: Pupils equal round and reactive to light, extra-ocular motions intact. Lids and lashes normal. Conjunctiva and sclera are not injected. Cornea within normal limits. Periorbital areas with no swelling, redness, or edema. ENT: Nares patent. No nasal discharge, no septal abnormalities noted. Tympanic membranes are normal and external auditory canals are clear. Oropharynx with no redness, swelling, or masses, exudates, or evidence of obstruction, uvula midline. Mucous membranes moist. Neck: Trachea midline, no thyromegaly or masses palpated, and no cervical lymphadenopathy. Supple, full range of motion without nuchal rigidity, or vertebral point tenderness. Chest/axilla: Normal chest wall appearance and motion. Nontender with no deformity. No lesions are appreciated. Cardiovascular: Regular rate and rhythm with a normal S1 and S2. No gallops, murmurs, or rubs. Normal PMI, no JVD. No pulse deficits. Respiratory: Lungs have equal breath sounds bilaterally, clear to auscultation and percussion. No rales, rhonchi or wheezes noted. No increased work of breathing, no retractions or nasal flaring. Abdomen/GI: Soft, with normal bowel sounds. No distension or tympany. No guarding or rebound. No evidence of tenderness throughout. Back: No spinal tenderness. No costovertebral tenderness. Skin: Warm, dry with normal turgor. Normal color with no rashes, no lesions, and no evidence of cellulitis. MS/ Extremity: Pulses equal, no cyanosis. Neurovascular intact. Full, normal range of motion. Neuro: Awake and alert, GCS 15, oriented to person, place, time, and situation. Cranial nerves II-XII grossly intact. Motor strength 5/5 in all extremities. Sensory grossly intact. Psych: Awake, alert, with orientation to person, place and time. Behavior, mood, and affect are within normal limits 05:49 ECG was reviewed by the Attending Physician. EKG at 0 519 prolonged QT sinus rhythm rate 72. Vital Signs: 05:23 BP 156 / 75; Pulse 68; Resp 25; Pulse Ox 100% ; Weight 132.45 kg; Height 5 ft. 11 in. ; vc1 Pain 0/10; 06:59 BP 121 / 71; Pulse 63; Resp 16; Temp 98.1; Pulse Ox 99% on R/A; dd2 05:23 Body Mass Index 40.73 (132.45 kg, 180.34 cm) vc1 05:23 Pain Scale: Adult vc1 Keny Coma Score: 05:49 Eye Response: spontaneous(4). Motor Response: obeys commands(6). Verbal Response: sp4 oriented(5). Total: 15. MDM: 05:12 Medical Screening Exam initiated sp4 06:58 Differential diagnosis: hypertensive crisis, Malignant HTN, intracerebral hemorrhage. sp4 Data reviewed: vital signs, nurses notes, lab test result(s), EKG, radiologic studies, CT scan. 06:58 Consideration of Admission/Observation Escalation of care including sp4 admission/observation considered. ED course: CT today is negative. Patient stable for discharge home. No signs of heart failure, few PVCs on the monitor otherwise unremarkable.. 06:59 ED course: Patient was advised to continue all of his home medications as prescribed. sp4 03/22 05:12 Order name: Basic Metabolic Panel; Complete Time: 06:48 sp4 03/22 05:12 Order name: CBC with Diff; Complete Time: 06:48 sp4 03/22 05:12 Order name: LFT's; Complete Time: 06:48 sp4 03/22 05:12 Order name: Magnesium; Complete Time: 06:48 sp4 03/22 05:12 Order name: NT PRO-BNP; Complete Time: 06:48 sp4 03/22 05:12 Order name: PT-INR; Complete Time: 06:48 sp4 03/22 05:12 Order name: Troponin HS; Complete Time: 06:48 sp4 03/22 06:10 Order name: Thyroid Stimulating Hormone; Complete Time: 06:48 EDCO 03/22 05:14 Order name: CT Head Brain wo Cont sp4 03/22 05:12 Order name: EKG; Complete Time: 05:12 sp4 03/22 05:12 Order name: Cardiac monitoring; Complete Time: sp4 03/22 05:12 Order name: EKG - Nurse/Tech; Complete Time: sp4 03/22 05:12 Order name: IV Saline Lock; Complete Time: sp4 03/22 05:12 Order name: Labs collected and sent; Complete Time: sp03/22 05:12 Order name: O2 Per Protocol; Complete Time: sp4 03/22 05:12 Order name: O2 Sat Monitoring; Complete Time: EC:19 Rate is 72 beats/min. Rhythm is regular, Normal Sinus Rhythm. QRS [place] is Normal. [place] sp4 interval is normal. QRS interval is normal. QT interval is prolonged. No Q waves. T waves are Normal. No ST changes noted. Clinical impression: No evidence of ischemia. Interpreted by me. Reviewed by me. Administered Medications: 05:30 Drug: NS 0.9% IV 500 ml 500 ml IV at 1 bolus once; to be given as a bolus over 30 ha1 minutes Volume: 500 ml; Route: IV; Rate: 1 bolus; Site: right antecubital; 06:30 Follow up: IV Status: Completed infusion; IV Intake: 1000ml dd2 05:32 Drug: Ketorolac IVP 15 mg IVP once Route: IVP; Site: right antecubital; ha1 05:47 Follow up: Response: No adverse reaction dd2 05:34 Drug: metoCLOPramide IVP 10 mg IVP once; over 1 to 2 minutes Route: IVP; Site: right ha1 antecubital; 05:49 Follow up: Response: No adverse reaction dd2 05:36 Drug: diphenhydrAMINE IVP 25 mg IVP once Route: IVP; Site: right antecubital; ha1 05:51 Follow up: Response: No adverse reaction dd2 Disposition Summary: 03/22/24 06:53 Discharge Ordered Problem: new sp4 Symptoms: have improved sp4 Condition: Stable sp4 Diagnosis - Palpitations sp4 Followup: sp4 - With: Private Physician - When: 10 - 14 days - Reason: Recheck today's complaints Discharge Instructions: - Discharge Summary Sheet sp4 - Palpitations sp4 Forms: - Patient Portal Instructions sp4 Signatures: Dispatcher [employer] EDMS Debbie Hampton RN RN vc1 Mehnaz John RN RN ha1 Alex Estrada MD MD sp4 JULIO CESAR FATIMA RN dd2 Corrections: (The following items were deleted from the chart) 05:15 05:14 Head Brain Wo Cont+CT.RAD.BRZ ordered. EDMS EDMS 06:10 05:43 THYROID STIMULAT HORMONE+C.LAB.BRZ ordered. EDMS EDMS
[2024-03-22 07:46] VITALS: BP 121/71; TEMP 98.1; O2SAT 99
--- NOTE | 2024-03-25 13:04 | EKG ---
Test Date: 2024-03-22 Test Time: 05:19:14 Dry Cleaning Teacher: DAYNE MEASUREMENT RESULTS: Intervals: Rate: 72 IL: 192 QRSD: 98 QT: 456 QTc: 499 Coker: P: 37 IL: 192 QRS: 17 T: 45 INTERPRETIVE STATEMENTS: Normal sinus rhythm Prolonged QT Abnormal ECG Compared to ECG 02/26/2024 17:49:04 Prolonged QT interval now present Ventricular premature complex(es) no longer present Electronically Signed On 03-25-24 13:00:29 WELDER/FABRICATOR by Melecio Muñoz
== END 2024-03-22 07:01 | disposition home or self-care (01) ==
LOC: ER 05:01
DX: R00.2 Palpitations (principal); R51.9 Headache, unspecified; I10 Essential (primary) hypertension; I50.9 Heart failure, unspecified
CPT/HCPCS: 96361; 85025; 80048; 36415; 83735; 85610; 80076; 84443; 84484; 83880; 70450; 96375; 96374; 99285; J2765; J1200; J7040; 93005

== ENCOUNTER 2024-04-01 06:41 | Inpatient (IN) | payer OTHER ==
--- OUTSIDE RECORDS SUMMARY | 2024-04-01 06:43 | XMS REPORT | Clinical Summary ---
Author Name Unknown Organization [facility] Address [address] [place] [address] Care Team Providers Care Staff Nurse Name Role Phone Jens Robbins MD Unavailable [phone] Henry Baird MD Primary Care Provider [phone] Floyd Cruz MD Unavailable [phone] Allergies Active Allergy Reactions Criticality Noted Date Comments Gatifloxacin 07/21/2017 Medications valsartan (DIOVAN) 320 mg tablet Take 320 mg by mouth daily. Active clonazePAM (KlonoPIN) 0.5 mg tablet Take 0.5 mg by mouth as needed. Active ARIPiprazole (ABILIFY) 2 mg tablet Take 2 mg by mouth. Active hydroCHLOROthiaz arianne (HYDRODIURIL) 25 mg tablet Take 25 mg by mouth 2 (two) times a week [facility]. Active cyanocobalamin (VITAMIN B-12) 1000 mcg [...] 65+ Years (1 of 1 - PCV) 999 COVID-19 Vaccine ( - 2023- season) 2023 Influenza Vaccine (#1) 2023 Insurance MEDICARE PART A AND B [facility] MEDIC[facility] PART [facility] MEDIC[facility] PART A AND B [facility] H[facility] Care Teams Staff Nurse Relationship Specialty Start Date End Date Jens Robbins MD [address] [place] [id number] [email or web address] PCP - External Primary Care Provider Family Practice 06/04/17 [place] [address] [place] [email or web address] PCP - General Urology 06/04/17 Floyd Cruz MD [address] [place] [address] PCP - External Referring Urology 06/11/17
[2024-04-01] MEDS ORDERED: MAGNESIUM SULFATE 1 gm IVPB 1 GM/100 ML BAG IV ONE (07:35)
[2024-04-01] MEDS ORDERED: ASPIRIN 81 MG CHEWABLE TABLET ONE (07:35)
[2024-04-01] MEDS ORDERED: FAMOTIDINE 20 MG/2 ML VIAL IV ONE (07:35)
[2024-04-01 07:44] LABS: Absolute Eosinophils 0.1 K/uL (0-0.5); Absolute Lymphocytes (CBC) 0.5 K/uL (0.7-4.9); Absolute Monocytes 0.3 K/uL (0.1-1.3); Basophils % 1.2 % (0-1.3); Eosinophils % 2.2 % (0-4.4); Hematocrit 40.5 % (39.6-49.0); Hemoglobin 13.5 g/dL (13.6-17.9); Lymphocytes % 13.3 % (15.3-44.8); MCH 32.5 pg (27.0-35.0); MCHC 33.2 g/dL (32.0-36.0); MCV 98.1 fL (80-100); MPV 10.4 fL (7.6-11.3); Monocytes % 7.4 % (3.3-12.3); Neutrophils % 75.9 % (41.7-73.7); Nucleated Red Blood Cells % 0.1 % (0-0); PT Prothrombin Time 13.8 SECONDS (9.4-12.5); Platelets 135 thou/uL (152-406); Protime INR 1.32; RBC Red Blood Cell Count 4.14 M/uL (4.33-5.43); Red Cell Distribution Width 13.9 % (12.1-15.2)
--- NOTE | 2024-04-01 07:55 | RAD REPORT ---
EXAM: CT Angio Aorta For Dissection HISTORY: [facility] MAIN na ABD PAIN Bed Name: 6 COMPARISON: 07/04/2023 TECHNIQUE: Multiple contiguous axial images were obtained a CTA of the chest and abdomen with contras t per aortic dissection protocol. Sagittal and coronal 3-D MIP reformats were performed. One or more of the following dose reduction techniques were used: Automated exposure control, adjustment of the mA and kV according to patient size, and iterative reconstruction. Unless otherwise specified, incidental findings do not require dedicated imaging follow-up. FINDINGS: PULMONARY ARTERIES: Normal in caliber without filling defects to suggest pulmonary emboli. MEDIASTINUM: No hilar or mediastinal lymphadenopathy. LUNGS: No focal infiltrates or masses. PLEURAL SPACE: Trace right pleural effusion, stable. No pneumothorax. LIVER: Hypoattenuating right and left lobe ovoid lesions measuring 1.5-1.3 cm respectively, stable. KIDNEYS: Unremarkable. SPLEEN: Unremarkable. PANCREAS: Unremarkable. BOWEL: Unremarkable. RETROPERITONEUM: No lymphadenopathy BONES: Degenerative changes in the spine. ASCENDING THORACIC AORTA: Normal caliber without evidence of dissection or aneurysmal dilatation. DESCENDING THORACIC AORTA: Normal caliber without evidence of dissection or aneurysmal dilatation. ABDOMINAL AORTA: Normal caliber without evidence of dissection or aneurysmal dilatation. CELIAC TRUNK: Moderate to severe stenosis with kinking at the origin again seen, findings could possi asha relate to compression against the edge of the diaphragmatic crura. Appearance is stable. SMA: Patent GIFTY: Patent RENAL ARTERIES: Bilateral single renal arteries without significant atherosclerotic disease IMPRESSION: No evidence of thoracic or abdominal aortic aneurysm or dissection. 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 Other stable findings including trace right pleural effusion and hypoattenuating hepatic lesions, mos t suggestive of small cysts.
--- NOTE | 2024-04-01 07:59 | RAD REPORT ---
EXAM: CT Head Brain Wo Cont HISTORY: PAIN COMPARISON: 03/22/2024 TECHNIQUE: Multiple contiguous axial images were obtained for a CT of the brain without contrast. Sag ittal and coronal reformats were performed. One or more of the following dose reduction techniques were used: Automated exposure control, adjus tment of the mA and kV according to patient size, and iterative reconstruction. Unless otherwise specified, incidental findings do not require dedicated imaging follow-up. FINDINGS: No evidence of hydrocephalus, intracranial hemorrhage, or extra-axial fluid collection. The brain is normal in morphology. The calvarium is intact. Left maxillary sinus mucus retention cyst. Mastoid air cells are essentially clear. Left suboccipital venous lacune versus sinus pericranii again seen. IMPRESSION: No evidence of acute intracranial abnormality.
--- NOTE | 2024-04-01 08:02 | RAD REPORT ---
EXAM: US Carotid Artery Bilateral CLINICAL INDICATION: PAIN TECHNIQUE: Real-time grayscale, color flow, and spectral Doppler sonographic images were obtained of the extracranial carotid system using a linear transducer. Arterial peak systolic velocities are recorded as follows. COMPARISON: No prior exam. FINDINGS: RIGHT: Common carotid artery: 63 cm/s Internal carotid artery: 131 cm/s Right ICA/CCA ratio: 2.1 Plaque Mild Noncalcified plaque at the bulb External carotid artery: 95 cm/s Vertebral artery: Antegrade LEFT: Common carotid artery: 145 cm/s Internal carotid artery: 149 cm/s Left ICA/CCA ratio: 1.0 Plaque None External carotid artery: 180 cm/s Vertebral artery: Antegrade Tortuosity of the bilateral ICAs noted. IMPRESSION: No hemodynamically significant stenosis (greater than 50%) within the extracranial internal carotid a rteries. Bilateral segmental increased velocities, favored to be related to vessel tortuosity. The degrees of stenosis, if any, are quantified according to the consensus statement of the Society o f Radiologists in Ultrasound (SRUS). Please refer to Hamzah E, Elkin C, James G et al. Carotid Artery Stenosis: Palacio-Scale and Doppler US Diagnosis--Society of Radiologists in Ultrasound Consensus Conference. Radiology. 2003;229(2):340-6. doi:10.1148/[id number]
--- NOTE | 2024-04-01 08:04 | RAD REPORT ---
EXAMINATION: ONE VIEW CHEST XR CLINICAL INDICATION: Male, 74 years old.,CHEST PAIN TECHNIQUE: Frontal chest projection is submitted. Examination is limited by patient positioning and t echnique. COMPARISON: 02/26/2024 FINDINGS: The lungs are well inflated and clear. No pneumothorax or sizable effusion. The heart is moderately enlarged in size. Mediastinal contours are unremarkable. IMPRESSION: Cardiomegaly. No acute pulmonary process
[2024-04-01 08:09] LABS: Albumin 3.3 g/dL (3.4-5.0); Albumin/Globulin Ratio 0.8 (1.1-1.8); Anion Gap 9.7 mEq/L (5.0-15.0); Bilirubin Direct 0.2 mg/dL (0-0.2); Bilirubin Indirect, Calculated 0.5 mg/dL (0.2-0.8); Bilirubin Total 0.7 mg/dL (0.2-1.0); Magnesium 2.2 mg/dL (1.6-2.4); Potassium 3.7 mEq/L (3.5-5.1); Protein, Total 7.3 g/dL (6.4-8.2); Thyroid Stimulating Hormone 0.927 uIU/mL (0.358-3.740); Troponin High Sensitivity 23.8 pg/mL (<58.9)
--- NOTE | 2024-04-01 08:54 | EDPHYS ---
Physician Documentation [facility] Name: Job Branch Jr Age: 74 yrs Sex: Male : 1950 Arrival Date: 04/01/2024 Time: 06:41 Bed 6 Private MD: ED Physician Christiano Purcell HPI: 04/01 07:06 This 74 yrs old Male presents to ER via Ambulatory with complaints of juan antonio Headache, Neck and Upper Back Pain, Irregular Pulse. 07:06 The patient complains of pain to the forehead. The patient describes the headache as juan antonio aching. Onset: The symptoms/episode began/occurred just prior to arrival, this morning. Associated signs and symptoms: The patient has no apparent associated signs or symptoms. Severity of symptoms: At its worst the pain was mild. Historical: - Allergies: 06:57 Tequins; ha1 06:57 tramadol; ha1 - PMHx: 06:57 Congestive heart failure; Hypertension; ha1 - PSHx: 06:57 Appendectomy; back; ha1 - Immunization history:: Adult Immunizations up to date, Flu vaccine is not up to date. - Infectious Disease History:: Denies. - Social history:: Smoking status: Patient denies any tobacco usage or history of. ROS: 07:08 Constitutional: Negative for fever, chills, and weight loss, Eyes: Negative for injury, juan antonio pain, redness, and discharge, ENT: Negative for injury, pain, and discharge, Neck: Negative for injury, pain, and swelling, Respiratory: Negative for shortness of breath, cough, wheezing, and pleuritic chest pain, Abdomen/GI: Negative for abdominal pain, nausea, vomiting, diarrhea, and constipation, Back: Negative for injury and pain, : Negative for injury, bleeding, discharge, and swelling, MS/Extremity: Negative for injury and deformity, Skin: Negative for injury, rash, and discoloration, Psych: Negative for depression, anxiety, suicide ideation, homicidal ideation, and hallucinations, Allergy/Immunology: Negative for hives, rash, and allergies, Endocrine: Negative for neck swelling, polydipsia, polyuria, polyphagia, and marked weight changes, Hematologic/Lymphatic: Negative for swollen nodes, abnormal bleeding, and unusual bruising, 07:08 Cardiovascular: Positive for palpitations, 07:08 Neuro: Positive for headache, Exam: 07:08 Constitutional: This is a well developed, well nourished patient who is awake, alert, juan antonio and in no acute distress. Head/Face: Normocephalic, atraumatic. Eyes: Pupils equal round and reactive to light, extra-ocular motions intact. Lids and lashes normal. Conjunctiva and sclera are non-icteric and not injected. Cornea within normal limits. Periorbital areas with no swelling, redness, or edema. ENT: Nares patent. No nasal discharge, no septal abnormalities noted. Tympanic membranes are normal and external auditory canals are clear. Oropharynx with no redness, swelling, or masses, exudates, or evidence of obstruction, uvula midline. Mucous membranes moist. Neck: Trachea midline, no thyromegaly or masses palpated, and no cervical lymphadenopathy. Supple, full range of motion without nuchal rigidity, or vertebral point tenderness. No Meningismus. Chest/axilla: Normal chest wall appearance and motion. Nontender with no deformity. No lesions are appreciated. Cardiovascular: Regular rate and rhythm with a normal S1 and S2. No gallops, murmurs, or rubs. Normal PMI, no JVD. No pulse deficits. Respiratory: Lungs have equal breath sounds bilaterally, clear to auscultation and percussion. No rales, rhonchi or wheezes noted. No increased work of breathing, no retractions or nasal flaring. Abdomen/GI: Soft, non-tender, with normal bowel sounds. No distension or tympany. No guarding or rebound. No evidence of tenderness throughout. Back: No spinal tenderness. No costovertebral tenderness. Full range of motion. Male : Normal genitalia with no discharge or lesions. Skin: Warm, dry with normal turgor. Normal color with no rashes, no lesions, and no evidence of cellulitis. MS/ Extremity: Pulses equal, no cyanosis. Neurovascular intact. Full, normal range of motion., bilateral aka Neuro: Awake and alert, GCS 15, oriented to person, place, time, and situation. Cranial nerves II-XII grossly intact. Motor strength 5/5 in all extremities. Sensory grossly intact. Cerebellar exam normal. Normal gait. Psych: Awake, alert, with orientation to person, place and time. Behavior, mood, and affect are within normal limits. 07:08 ECG was reviewed by the Attending Physician. Vital Signs: 06:46 BP 174 / 77; Pulse 64; Resp 18 S; Temp 97.6(O); Pulse Ox 99% on R/A; Weight 132.45 kg; ha1 Height 5 ft. 11 in. ; 08:09 BP 143 / 93; Pulse 55; Resp 14; Pulse Ox 99% ; ko1 10:46 BP 137 / 80; Pulse 52; Resp 15; Pulse Ox 100% ; ko1 06:46 Body Mass Index 40.73 (132.45 kg, 180.34 cm) ha1 [place] Coma Score: 07:12 Eye Response: spontaneous(4). Motor Response: obeys commands(6). Verbal Response: juan antonio oriented(5). Total: 15. MDM: 06:47 Medical Screening Exam initiated juan antonio 07:12 Differential diagnosis: cluster headache, abnormal EKG, acute myocardial infarction, juan antonio acute pericarditis, anxiety, hypoglycemia, hyponatremia, intracerebral hemorrhage, migraine, neoplasm, otitis, sinusitis, tension headache, vasomotor headache. HEART Score: History: Slightly Suspicious (0), ECG: Non specific repolarization disturbance / LBTB / PM (1), Age: > or = 65 years (2), Risk Factors: > or = 3 Risk factors for atherosclerotic disease (2), [Hypertension] [+ Family HX] [Obesity] Troponin: < or = 1 x Normal Limit (0), Total Score = 5. The patient was given aspirin in the Emergency Department. LIZA Risk Score: 1 - patient's age is greater or equal to 65 years, 1 - Three or more CAD risk factors, 1 - ASA use in past 7 days, 1 - Recent [<24hrs] Severe Angina, TOTAL SCORE = 4. Data reviewed: vital signs, nurses notes, lab test result(s), EKG, radiologic studies, plain films. Consideration of Admission/Observation Patient was admitted/placed on observation. Escalation of care including admission/observation considered. I considered the following discharge prescriptions or medication management in the emergency department Medications were administered in the Emergency Department. See MAR. Independent interpretation of the following test(s) in the Emergency Department EKG: See my EKG interpretation above. Test considered but Not performed: Ultrasound no 2 d echo. Historians other than the Patient: Spouse/Significant Other: well informed. Care significantly affected by the following chronic conditions: Hypertension, Congestive Heart Failure, Obesity. Counseling: I had a detailed discussion with the patient and/or guardian regarding the historical points, exam findings, and any diagnostic results supporting the discharge/admit diagnosis, the presence of at least one elevated blood pressure reading (>120/80) during this emergency department visit, lab results, the need for further work-up and treatment in the hospital. 08:49 Response to treatment: There is no appreciated change of the patient's symptoms at this rn time. ED course: Patient signed out to me by Dr. Joe at shift change, plan was to admit but awaiting workup. Upon reevaluation patient is in ventricular bigeminy with frequent PVCs, still reports not feeling well and discomfort. No acute findings in CT aorta or ultrasound of the carotids. Sounds like this has been happening for the last few weeks, worsening in frequency and duration. Sees Dr. Muñoz, takes metoprolol, which seems to be helping and keeping heart rate at approximately 60 bpm but is having episodes of subjective tachycardia that have not been captured here on ECG or monitor. Will admit to hospitalist service for further care and cardiology consultation.. 04/01 06:59 Order name: Basic Metabolic Panel; Complete Time: 08:17 juan antonio 04/01 06:59 Order name: CBC with Diff; Complete Time: 09:03 juan antonio 04/01 06:59 Order name: LFT's; Complete Time: 08:17 04/01 06:59 Order name: Magnesium; Complete Time: 08:17 04/01 06:59 Order name: NT PRO-BNP; Complete Time: 08:18 04/01 06:59 Order name: PT-INR; Complete Time: 08:05 04/01 06:59 Order name: Troponin HS; Complete Time: 08:18 04/01 06:59 Order name: Lipase; Complete Time: 08:18 juan antonio 04/01 06:59 Order name: TSH; Complete Time: 08:18 [facility] 04/01 09:03 Order name: CBC Smear Scan; Complete Time: 09:03 [facility] 04/01 09:12 Order name: Troponin High Sensitivity [facility] 04/01 09:12 Order name: Troponin High Sensitivity [facility] 04/01 09:12 Order name: Troponin High Sensitivity [facility] 04/01 06:59 Order name: XRAY Chest (1 view); Complete Time: 08:05 [facility] 04/01 07:06 Order name: CT Aorta for Dissection; Complete Time: 08:05 [facility] 04/01 07:06 Order name: CT Head Brain wo Cont; Complete Time: 08:05 [facility] 04/01 07:22 Order name: US Carotid Artery Bilateral; Complete Time: 08:05 [facility] 04/01 06:59 Order name: Cardiac monitoring; Complete Time: 07:01 [facility] 04/01 06:59 Order name: EKG - Nurse/Tech; Complete Time: 07:01 [facility] 04/01 06:59 Order name: IV Saline Lock; Complete Time: 07:14 [facility] 04/01 06:59 Order name: Labs collected and sent; Complete Time: 07:14 [facility] 04/01 06:59 Order name: O2 Per Protocol; Complete Time: 07:01 [facility] 04/01 06:59 Order name: O2 Sat Monitoring; Complete Time: 07:01 [facility] EC:08 Rate is 59 beats/min. Rhythm is regular. QRS [place] is Normal. MN interval is normal. QRS juan antonio interval is normal. QT interval is normal. No Q waves. T waves are Normal. No ST changes noted. Clinical impression: Sinus bradycardia and No evidence of ischemia. Interpreted by me. Reviewed by me. Administered Medications: 08:03 Drug: Famotidine IVP 20 mg IVP once; dilute with 10 mL 0.9% NaCl; give over 2 minutes ko1 Route: IVP; Site: right antecubital; 08:18 Follow up: Response: No adverse reaction ko1 08:09 Drug: Aspirin PO Chewable Tablet 162 mg PO once Route: PO; ko1 09:37 Follow up: Response: No adverse reaction ko1 08:09 Drug: Magnesium Sulfate IVPB 1 grams IVPB once over 1 hrs Route: IVPB; Infused Over: 1 ko1 hrs; Site: right antecubital; 09:10 Follow up: Response: No adverse reaction; IV Status: Completed infusion; IV Intake: ko1 100ml 09:45 Drug: Acetaminophen PO 1000 mg PO once Route: PO; aa5 10:15 Follow up: Response: No adverse reaction ko1 Disposition Summary: 04/01/24 08:53 Hospitalization Ordered Notes: Hospitalization Status: Observation rn Provider: Soy Purcell rn Location: Telemetry/[facility] (observation) rn Condition: Stable rn Problem: an ongoing problem rn Symptoms: are unchanged rn Bed/Room Type: Standard rn Room Assignment: 207(04/01/24 10:19) ana Diagnosis - Palpitations rn - Ventricular premature depolarization - Bigeminy rn Forms: - Medication Reconciliation Form rn - SBAR form rn - Leadership Thank You Letter rn Signatures: Dispatcher [employer] EDMS Lorenzo Joe MD MD cha Nieto, Roman, MD MD rn Calderon, Audri, RN RN aa5 Nils Miller, BILLING AND ACCOUNTING STAFF ASSISTANT-C BILLING AND ACCOUNTING STAFF ASSISTANT-Cla1 Gavin La, RN RN ja1 Mehnaz John, RN RN ha1 Kacie Dye, RN RN ko1 Corrections: (The following items were deleted from the chart) 07:00 06:59 BASIC METABOLIC PANEL+C.LAB.BRZ ordered. EDMS EDMS 07:00 06:59 CBC+H.LAB.BRZ ordered. EDMS EDMS 07:00 06:59 HEPATIC FUNCTION+C.LAB.BRZ ordered. EDMS EDMS 07:00 06:59 MAGNESIUM+C.LAB.BRZ ordered. EDMS EDMS 07:00 06:59 PROBNP+C.LAB.BRZ ordered. EDMS EDMS 07:00 06:59 PROTIME (+INR)+COAG.LAB.BRZ ordered. EDMS EDMS 07:00 06:59 Troponin High Sensitivity+C.LAB.BRZ ordered. EDMS EDMS 07:00 06:59 LIPASE+C.LAB.BRZ ordered. EDMS EDMS 07:00 06:59 THYROID STIMULAT HORMONE+C.LAB.BRZ ordered. EDMS EDMS 07:00 07:00 Chest Single View+RAD.RAD.BRZ ordered. EDMS EDMS 07:23 07:23 Carotid Artery Bilateral+US.RAD.BRZ ordered. EDMS EDMS 10:19 08:53 rn ana
--- NOTE | 2024-04-01 08:54 | ER ---
Nurse's Notes [facility] Name: Job Branch Jr Age: 74 yrs Sex: Male : 1950 Arrival Date: 04/01/2024 Time: 06:41 Bed 6 Private MD: Diagnosis: Palpitations;Ventricular premature depolarization-Bigeminy Presentation: 04/01 06:46 Chief complaint: Patient states: CHEST PALPITATIONS, IRREGULAR PULSE, AND PAIN ON THE ha1 LEFT SIDE OF NECK AND HEAD. 06:46 Coronavirus screen: Client denies travel out of the [place] in the last 14 days. Ebola ha1 Screen: No symptoms or risks identified at this time. Initial Sepsis Screen: Does the patient meet any 2 criteria? No. Patient's initial sepsis screen is negative. Does the patient have a suspected source of infection? No. Patient's initial sepsis screen is negative. Risk Assessment: Do you want to hurt yourself or someone else? Patient reports no desire to harm self or others. Onset of symptoms was April 01, 2024. 06:46 Method Of Arrival: Ambulatory ha1 06:46 Acuity: SOLANGE 2 ha1 Triage Assessment: 06:46 General: Appears uncomfortable, Behavior is calm, cooperative. Pain: Complains of pain ha1 in LEFT SIDE OF NECK AND HEAD. 06:46 Neuro: Level of Consciousness is awake, alert, obeys commands, Oriented to person, ha1 place, time, situation. Cardiovascular: Capillary refill < 3 seconds Patient's skin is warm and dry. Cardiovascular: Reports palpitations. Respiratory: Airway is patent Respiratory effort is even, unlabored, Respiratory pattern is regular, symmetrical. GI: Abdomen is round non-distended, obese. : No signs and/or symptoms were reported regarding the genitourinary system. Derm: Skin is pink, warm \T\ dry. Musculoskeletal: Circulation, motion, and sensation intact. Range of motion: intact in all extremities. 10:47 Headache History: The patient has had previous headaches and this one is similar to ko1 previous episodes. Pain: Also complains of. Pain: Pain currently is 3 out of 10 on a pain scale. Pain began gradually. Historical: - Allergies: 06:57 Tequins; ha1 06:57 tramadol; ha1 - PMHx: 06:57 Congestive heart failure; Hypertension; ha1 - PSHx: 06:57 Appendectomy; back; ha1 - Immunization history:: Adult Immunizations up to date, Flu vaccine is not up to date. - Infectious Disease History:: Denies. - Social history:: Smoking status: Patient denies any tobacco usage or history of. Screenin:00 [facility] ED Fall Risk Assessment (Adult) History of falling in the last 3 months, ha1 including since admission No falls in past 3 months (0 pts) Confusion or Disorientation No (0 pts) Intoxicated or Sedated No (0 pts) Impaired Gait No (0 pts) Mobility Assist Device Used No (0 pt) Altered Elimination No (0 pt) Score/Fall Risk Level 0 - 2 = Low Risk Oriented to surroundings, Maintained a safe environment, Educated pt \T\ family on fall prevention, incl call for assistance when getting out of bed, Hourly rounding (assess needs \T\ fall precautionary measures) done. Abuse screen: Denies threats or abuse. Denies injuries from another. Nutritional screening: No deficits noted. Tuberculosis screening: No symptoms or risk factors identified. Assessment: 08:10 General: Appears in no apparent distress. Behavior is cooperative, anxious. Pain: ko1 Complains of pain in neck. Neuro: No deficits noted. Cardiovascular: Reports palpitations. Respiratory: No deficits noted. GI: No deficits noted. No signs and/or symptoms were reported involving the gastrointestinal system. : No deficits noted. No signs and/or symptoms were reported regarding the genitourinary system. EENT: No deficits noted. No signs and/or symptoms were reported regarding the EENT system. Derm: No deficits noted. No signs and/or symptoms reported regarding the dermatologic system. Musculoskeletal: No deficits noted. No signs and/or symptoms reported regarding the musculoskeletal system. Vital Signs: 06:46 BP 174 / 77; Pulse 64; Resp 18 S; Temp 97.6(O); Pulse Ox 99% on R/A; Weight 132.45 kg; ha1 Height 5 ft. 11 in. ; 08:09 BP 143 / 93; Pulse 55; Resp 14; Pulse Ox 99% ; ko1 10:46 BP 137 / 80; Pulse 52; Resp 15; Pulse Ox 100% ; ko1 06:46 Body Mass Index 40.73 (132.45 kg, 180.34 cm) ha1 Vitals: 08:09 Cardiac Rhythm Assessment Regular Sinus melo. ko1 [place] Coma Score: 07:12 Eye Response: spontaneous(4). Motor Response: obeys commands(6). Verbal Response: juan antonio oriented(5). Total: 15. ED Course: 06:43 Patient arrived in ED. [email or web address] 06:47 Lorenzo Joe MD is Attending Physician. juan antonio 06:57 Triage completed. ha1 07:01 EKG done, by ED staff. vk 07:07 Masha Stevenson RN is Primary Nurse. ph 07:08 Arm band placed on Patient placed in an exam room, on a stretcher, on show host, ph on pulse oximetry. 07:14 Initial lab(s) drawn, by ED staff, sent to lab. Inserted saline lock: 20 gauge in right ph antecubital area, using aseptic technique. Blood collected. Flushed with 10 mL NS Accessed peripheral vein via ultrasound, utilizing dynamic ultrasound technique using. 07:14 Basic Metabolic Panel Sent. ph 07:14 CBC with Diff Sent. ph 07:14 LFT's Sent. ph 07:14 Magnesium Sent. ph 07:14 NT PRO-BNP Sent. ph 07:14 PT-INR Sent. ph 07:14 Troponin HS Sent. ph 07:31 CT Aorta for Dissection In Process Unspecified. EDMS 07:31 CT Head Brain wo Cont In Process Unspecified. EDMS 07:54 US Carotid Artery Bilateral In Process Unspecified. EDMS 08:00 XRAY Chest (1 view) In Process Unspecified. EDMS 08:04 Attending Physician role handed off by Lorenzo Joe MD rn 08:04 Christiano Purcell MD is Attending Physician. rn 08:09 No provider procedures requiring assistance completed. ko1 08:09 Patient has correct armband on for positive identification. Allergy band placed. Bed in ko1 low position. Call light in reach. Side rails up X 1. Provided Education on: meds. Client placed on continuous cardiac and pulse oximetry monitoring. NIBP monitoring applied. butcher on. Door closed. Noise minimized. Lights dimmed. Warm blanket given. Pillow given. 08:53 Soy Purcell MD is Hospitalizing Provider. rn 10:46 Patient admitted, IV remains in place. ko1 Administered Medications: 08:03 Drug: Famotidine IVP 20 mg IVP once; dilute with 10 mL 0.9% NaCl; give over 2 minutes ko1 Route: IVP; Site: right antecubital; 08:18 Follow up: Response: No adverse reaction ko1 08:09 Drug: Aspirin PO Chewable Tablet 162 mg PO once Route: PO; ko1 09:37 Follow up: Response: No adverse reaction ko1 08:09 Drug: Magnesium Sulfate IVPB 1 grams IVPB once over 1 hrs Route: IVPB; Infused Over: 1 ko1 hrs; Site: right antecubital; 09:10 Follow up: Response: No adverse reaction; IV Status: Completed infusion; IV Intake: ko1 100ml 09:45 Drug: Acetaminophen PO 1000 mg PO once Route: PO; aa5 10:15 Follow up: Response: No adverse reaction ko1 Medication: 07:08 VIS not applicable for this client. ph Intake: 09:10 IV: 100ml; Total: 100ml. ko1 Outcome: 08:53 Decision to Hospitalize by Provider. rn 10:46 Admitted to ER Hold. Please see [facility] for further documentation. ko1 10:46 Condition: stable 10:46 Instructed on the need for admit, 11:16 Patient left the ED. ko1 Signatures: Dispatcher [employer] EDLorenzo Comer MD MD cha Nieto, Roman, MD MD rn Calderon, Audri RN RN aa5 Masha Stevenson RN RN ph Jeffries, Jennifer jj6 Ayala, Heidy, RN RN [email or web address] Kacie Dye RN RN ko1 Adriana Melo
[2024-04-01 09:02] LABS: Blood Morphology Comment NOT SEEN (NOT SEEN); Platelet Estimate ADEQ; White Blood Cell Scan OK (OK)
[2024-04-01] MEDS ORDERED: ACETAMINOPHEN 500 MG TAB ONE (09:35)
--- NOTE | 2024-04-01 10:33 | P.HP ---
Certification for Inpatient Patient admitted to: Observation With expected LOS: <2 Midnights Patient will require the following post-hospital care: None Practitioner: I am a practitioner with admitting privileges, knowledge of patient current condition, hospital course, and medical plan of care. Services: Services provided to patient in accordance with Admission requirements found in Title 42 Section 412.3 of the Code of Federal Regulations Patient History Date of Service: 04/01/24 History of Present Illness: 74-year-old male with history of hypertension, CHFunknown EF, anxiety, depression presents to the emergency department with chief complaint of palpitations, headache. He reports his medications have been adjusted by his doctor and cardiology and he feels as if after switching from Entresto to Diovan his Diovan is not working as well to control his blood pressure. He also has palpitations headache. During his stay in the ED ED physician noticed he was having PVCs and periodic bigeminy on telemetry. He reports that about a year ago he wore a Holter monitor as well as echo and stress test and an echo. His initial high sensitive troponin is normal, CTA dissection protocol was performed and negative for acute findings, carotid artery ultrasound did not show any significant stenosis, head CT was negative for acute findings, chest x- ray is unremarkable. ED provider wishes to admit under observation for palpitations/periodic bigeminy. Allergies gatifloxacin [From Tequin] Allergy (Intermediate, Verified 03/18/22 08:02) ANXIETY Home Medications: Valsartan [Diovan] 80 mg PO DAILY #30 tab 07/05/23 - Past Medical/Surgical History Diabetic: No -: HTN -: Acid reflux -: headaches -: anxiety -: depression -: CHF -: hernia repair -: cyst on tail bone removed -: rt shoulder sx -: appy - Family History Father -: Cancer Notes: skin cancer on face, triple bypass with valve replacement Mother Notes: 94 no health issues aside from alzheimers - Social History Alcohol use: Yes CD- Drugs: No Caffeine use: No Place of Residence: Home Review of Systems 10-point ROS is otherwise unremarkable Cardiovascular: Palpitations Physical Examination - Physical Exam General: Alert, In no apparent distress, Oriented x3 HEENT: Atraumatic, PERRLA, EOMI Neck: Supple, 2+ carotid pulse no bruit, No LAD Respiratory: Clear to auscultation bilaterally, Normal air movement Cardiovascular: Regular rate/rhythm, Normal S1 S2 Gastrointestinal: Normal bowel sounds, No tenderness Musculoskeletal: No tenderness Integumentary: No rashes Neurological: Normal gait, Normal speech, Normal strength at 5/5 x4 extr - Studies Laboratory Data (last 24 hrs) 04/01/24 04/01/24 04/01/24 07:12 07:12 07:12 WBC 3.90 L Hgb 13.5 L Hct 40.5 Plt Count 135 L PT 13.8 H INR 1.32 Sodium 140 Potassium 3.7 BUN 20 H Creatinine 1.28 Glucose 97 Magnesium 2.2 Total Bilirubin 0.7 AST 17 ALT 25 Alkaline Phosphatase 77 Lipase 15 Assessment and Plan - Plan Assessment: Palpitations/PVCs/bigeminy History of CHFunknown EF Hypertension anxiety/depression Plan: Palpitations/PVCs/bigeminy History of CHFunknown EF Hypertension Patient feels as if his medications are not working well Recently switched back over from Entresto to Diovan Feels like his blood pressure is more elevated on this medication after it begins to wear off Also has been having periodic palpitations Had echo, Holter monitor, stress test around 1 year ago without any significant findings Monitor on telemetry, trend troponins and consult cardiology. CTA dissection protocol, carotid ultrasound, head CT, chest x-ray negative for acute findings anxiety/depression Continue home medications when verified DVT PPX: Lovenox Code status: Full Discharge Plan: Home Plan to discharge in: 24 Hours - Advance Directives Does patient have a Living Will: No Does patient have a Durable POA for Healthcare: No - Code Status/Comfort Care Code Status Assessed: Yes (Full code) Time Spent Managing Pts Care (In Minutes): 65
[2024-04-01 12:06] VITALS: BMI 40.7
[2024-04-01] MEDS ORDERED: FLU (Fluarix Triv) TS24-25(6MOS UP)/PF 45 MCG/0.5 ML Syringe IM ONE (12:30)
[2024-04-01] MEDS ORDERED: ACETAMINOPHEN 325 MG TABLET PO PRN (12:38)
[2024-04-01] MEDS: NITROGLYCERIN 0.4 MG/TAB SL PRN (19:34)
[2024-04-01 21:09] LABS: Magnesium 2.5 mg/dL (1.6-2.4); Phosphorus 2.5 mg/dL (2.5-4.9)
[2024-04-02] MEDS: LORazepam 2 MG/ML VIAL IV PRN (03:32)
[2024-04-02 05:08] LABS: Absolute Eosinophils 0.1 K/uL (0-0.5); Absolute Lymphocytes (CBC) 0.7 K/uL (0.7-4.9); Absolute Monocytes 0.4 K/uL (0.1-1.3); Absolute Neutrophil 2.8 K/uL (1.8-8.0); Basophils % 0.4 % (0-1.3); Eosinophils % 2.2 % (0-4.4); Hematocrit 36.9 % (39.6-49.0); Hemoglobin 12.7 g/dL (13.6-17.9); Lymphocytes % 18.3 % (15.3-44.8); MCH 33.3 pg (27.0-35.0); MCHC 34.4 g/dL (32.0-36.0); MCV 96.8 fL (80-100); MPV 10.4 fL (7.6-11.3); Monocytes % 9.4 % (3.3-12.3); Neutrophils % 69.7 % (41.7-73.7); Platelets 104 thou/uL (152-406); RBC Red Blood Cell Count 3.81 M/uL (4.33-5.43); Red Cell Distribution Width 13.7 % (12.1-15.2)
[2024-04-02 05:57] LABS: Anion Gap 9.9 mEq/L (5.0-15.0); Magnesium 2.5 mg/dL (1.6-2.4); Potassium 3.9 mEq/L (3.5-5.1)
[2024-04-02] MEDS: METOPROLOL XL 50 MG TAB PO SCH (08:52)
[2024-04-02] MEDS: ENOXAPARIN 40 MG/0.4 ML SQ SCH (08:52)
[2024-04-02] MEDS: POTASSIUM CL SA 10 MEQ TAB PO ONE (08:53)
[2024-04-02] MEDS: VALSARTAN 160 MG TAB PO SCH (08:53)
[2024-04-02] MEDS ORDERED: HOME MED 1 EA UNK (Valsartan [Diovan] 320 MG Tablet) PO SCH (09:00)
[2024-04-02] MEDS ORDERED: LORazepam 2 MG/ML VIAL IV PRN (09:10)
--- NOTE | 2024-04-02 13:22 | P.CNS ---
Date of Consult: 04/02/24 Chief Complaint: palpitations History of Present Illness: Patient with PMH of HTN, Obesity, DD, presented with worsening palpitations, fatigue and weakness and hard to control BP, report ORTEGA but no chest pain, no syncope. Allergies gatifloxacin [From Tequin] Allergy (Intermediate, Verified 03/18/22 08:02) ANXIETY Home medications list reviewed: Yes Home Medications: Metoprolol Succinate 1 tab PO DAILY 04/01/24 Sacubitril/Valsartan [Entresto 24 mg-26 mg Tablet] 1 tab PO Q12HR 04/01/24 Valsartan [Diovan] 1 tab PO DAILY 04/01/24 - Past Medical/Surgical History Diabetic: No -: HTN -: Acid reflux -: headaches -: anxiety -: depression -: CHF -: hernia repair -: cyst on tail bone removed -: rt shoulder sx -: appy - Family History Father Medical History: Cancer Notes: skin cancer on face, triple bypass with valve replacement Mother Notes: 94 no health issues aside from alzheimers - Social History Smoking Status: Never smoker Alcohol use: Yes CD- Drugs: No Caffeine use: No Place of Residence: Home Review of Systems 10-point ROS is otherwise unremarkable Physical Examination Temp Pulse Resp BP Pulse Ox 97.9 F 58 18 123/79 96 04/02/24 12:00 04/02/24 12:00 04/02/24 12:00 04/02/24 12:00 04/02/24 12:00 General: Alert, In no apparent distress HEENT: Atraumatic, PERRLA, Mucous membr. moist/pink, EOMI, Sclerae nonicteric Neck: Supple, 2+ carotid pulse no bruit, No LAD, Without JVD or thyroid abnormality Respiratory: Clear to auscultation bilaterally, Normal air movement Cardiovascular: Regular rate/rhythm, Normal S1 S2 Gastrointestinal: Normal bowel sounds, No tenderness Musculoskeletal: No tenderness Integumentary: No rashes Neurological: Normal gait, Normal speech, Normal tone, Normal affect Lymphatics: No axilla or inguinal lymphadenopathy Laboratory Data (last 24 hrs) 04/02/24 04/02/24 04/01/24 04:46 04:46 19:32 WBC 4.00 L Hgb 12.7 L Hct 36.9 L Plt Count 104 L Sodium 141 141 Potassium 3.9 4.0 BUN 19 H 20 H Creatinine 1.25 1.43 H Glucose 94 121 H Phosphorus 2.5 Magnesium 2.5 H 2.5 H - Problems (1) PVC (premature ventricular contraction) Current Visit: Yes Status: Acute Plan: Patient had a recent echo and stress test in office that were normal start Sotalol 80 mg po BID to help lower PVCs burden (EKG after 3rd dose) continue Toprol XL 50 mg daily continue to monitor on tele (2) Essential hypertension Current Visit: No Status: Chronic Plan: continue Toprol XL and Valsartan.
--- NOTE | 2024-04-02 14:13 | P.PN ---
Date of Service: 04/02/24 Subjective: Had some episodes of palpitations, anxiety overnight No other acute events overnight ROS: 10 point ROS as noted above, otherwise negative Physical exam GEN: Alert, oriented, NAD HEENT: Normal conjunctiva, sclera anicteric CV: Regular rate and rhythm, no edema Pulm: Nonlabored respirations on room air ABD: Soft, nontender, nondistended MSK: No joint tenderness Integumentary: No rashes Neuro: Normal speech, normal affect Vitals reviewed Assessment: Palpitations/PVCs/bigeminy History of CHFunknown EF Hypertension anxiety/depression Plan: Palpitations/PVCs/bigeminy History of CHFunknown EF Hypertension Patient feels as if his medications are not working well Recently switched back over from Entresto to Diovan Feels like his blood pressure is more elevated on this medication after it begins to wear off Also has been having periodic palpitations Had echo, Holter monitor, stress test around 1 year ago without any significant findings Troponins negative x 4 On telemetry patient with frequent PVCs, periods of time where he is in bigeminy CTA dissection protocol, carotid ultrasound, head CT, chest x-ray negative for acute findings Cardiology recommends continuing Toprol XL 50 mg and adding sotalol 80 mg twice daily Will continue to monitor on, she will initiating sotalol, repeat EKG after third dose to evaluate QTc anxiety/depression Continue home medications when verified DVT PPX: Lovenox Code status: Full Discharge Plan: Home Plan to discharge in: 24 Hours Time Spent Managing Pts Care (In Minutes): 35
[2024-04-02] MEDS: SOTALOL HCL 80 MG TAB PO ONE (14:28)
[2024-04-02] MEDS: SOTALOL HCL 80 MG TAB PO SCH (20:49)
[2024-04-03 05:49] LABS: Absolute Eosinophils 0.1 K/uL (0-0.5); Absolute Lymphocytes (CBC) 0.7 K/uL (0.7-4.9); Absolute Monocytes 0.4 K/uL (0.1-1.3); Absolute Neutrophil 2.8 K/uL (1.8-8.0); Basophils % 0.5 % (0-1.3); Eosinophils % 3.4 % (0-4.4); Hematocrit 37.2 % (39.6-49.0); Hemoglobin 12.6 g/dL (13.6-17.9); Lymphocytes % 16.6 % (15.3-44.8); MCH 33.2 pg (27.0-35.0); MCHC 33.7 g/dL (32.0-36.0); MCV 98.3 fL (80-100); MPV 10.2 fL (7.6-11.3); Monocytes % 9.8 % (3.3-12.3); Neutrophils % 69.7 % (41.7-73.7); Nucleated Red Blood Cells % 0.2 % (0-0); Platelets 118 thou/uL (152-406); RBC Red Blood Cell Count 3.79 M/uL (4.33-5.43); Red Cell Distribution Width 14.2 % (12.1-15.2)
[2024-04-03 05:58] LABS: Anion Gap 9.9 mEq/L (5.0-15.0); Magnesium 2.3 mg/dL (1.6-2.4); Potassium 3.9 mEq/L (3.5-5.1)
[2024-04-03] MEDS: LORAZEPAM 0.5 MG TABLET PO ONE (08:24)
[2024-04-03] MEDS: POTASSIUM CL SA 10 MEQ TAB PO ONE (08:25)
[2024-04-03] MEDS: SOTALOL HCL 80 MG TAB PO SCH (08:26)
[2024-04-03 08:35] VITALS: TEMP 97.7
[2024-04-03 10:27] VITALS: O2SAT 56
[2024-04-03 12:23] VITALS: BP 115/62
--- NOTE | 2024-04-03 14:56 | P.DS ---
Admission Date: 04/02/24 Discharge Date: 04/03/24 Disposition: ROUTINE DISCHARGE Discharge Condition: GOOD Reason for Admission: palpitations Brief History of Present Illness: 74-year-old male with history of hypertension, CHFunknown EF, anxiety, depression presents to the emergency department with chief complaint of palpitations, headache. He reports his medications have been adjusted by his doctor and cardiology and he feels as if after switching from Entresto to Diovan his Diovan is not working as well to control his blood pressure. He also has palpitations headache. During his stay in the ED ED physician noticed he was having PVCs and periodic bigeminy on telemetry. He reports that about a year ago he wore a Holter monitor as well as echo and stress test and an echo. His initial high sensitive troponin is normal, CTA dissection protocol was performed and negative for acute findings, carotid artery ultrasound did not show any significant stenosis, head CT was negative for acute findings, chest x- ray is unremarkable. ED provider wishes to admit under observation for palpitations/periodic bigeminy. Hospital Course: Patient was admitted to the hospital for palpitations, chest pain, anxiety. He was seen by cardiology who recommended starting sotalol to help control his frequent PVCs and bigeminy. He was initiated on sotalol and had 3 doses in the hospital while being monitored on telemetry, his QTc was 480 with a third dose and he is having much less frequent PVCs/bigeminy. He did periodically have complaints of pain or abnormal sensations in his chest that went up around the left side of his neck to the back of his head and forehead area as well as a tremor that affected his right arm. The symptoms were resolved with oral Ativan, it is likely some of his symptoms are related to anxiety and he will be prescribed a limited supply of Ativan. He was also counseled to follow-up with his primary care doctor and cardiology in 1 to 2 weeks Discontinue/stop taking your metoprolol Begin taking the sotalol 80 mg twice daily Ativan by mouth sent to pharmacy as well to take as needed for anxiety Continue your Diovan Assessment: Palpitations/PVCs/bigeminy History of CHFunknown EF Hypertension anxiety/depression Vital Signs/Physical Exam: Temp Pulse Resp BP Pulse Ox 97.7 F 56 16 115/62 96 04/03/24 12:00 04/03/24 12:00 04/03/24 12:00 04/03/24 12:00 04/03/24 12:00 General: Alert, In no apparent distress, Oriented x3 HEENT: Atraumatic, PERRLA Neck: Supple, JVD not distended Respiratory: Clear to auscultation bilaterally, Normal air movement Cardiovascular: Regular rate/rhythm, Normal S1 S2 Gastrointestinal: Normal bowel sounds Musculoskeletal: No tenderness Integumentary: No rashes Neurological: Normal speech, Normal affect Laboratory Data at Discharge: WBC 4.00 thou/uL (4.3-10.9) L 04/03/24 04:53 Hgb 12.6 g/dL (13.6-17.9) L 04/03/24 04:53 Hct 37.2 % (39.6-49.0) L 04/03/24 04:53 Plt Count 118 thou/uL (152-406) L 04/03/24 04:53 PT 13.8 SECONDS (9.4-12.5) H 04/01/24 07:12 INR 1.32 04/01/24 07:12 Sodium 141 mEq/L (136-145) 04/03/24 04:53 Potassium 3.9 mEq/L (3.5-5.1) 04/03/24 04:53 BUN 21 mg/dL (7-18) H 04/03/24 04:53 Creatinine 1.19 mg/dL (0.70-1.30) 04/03/24 04:53 Glucose 95 mg/dL (74-106) 04/03/24 04:53 Phosphorus 2.5 mg/dL (2.5-4.9) 04/01/24 19:32 Magnesium 2.3 mg/dL (1.6-2.4) 04/03/24 04:53 Total Bilirubin 0.7 mg/dL (0.2-1.0) 04/01/24 07:12 AST 17 U/L (15-37) 04/01/24 07:12 ALT 25 U/L (16-61) 04/01/24 07:12 Alkaline Phosphatase 77 U/L (45-117) 04/01/24 07:12 Lipase 15 U/L (13-75) 04/01/24 07:12 Home Medications: Valsartan [Diovan] 1 tab PO DAILY 04/01/24 LORazepam [Ativan] 0.5 mg PO Q12H PRN #10 tab 04/03/24 Sotalol HCl [Betapace*] 80 mg PO BID #60 tab 04/03/24 New Medications: LORazepam [Ativan] 0.5 mg PO Q12H PRN #10 tab PRN Reason: Anxiety Sotalol HCl [Betapace*] 80 mg PO BID #60 tab Physician Discharge Instructions: Patient was admitted to the hospital for palpitations, chest pain, anxiety. He was seen by cardiology who recommended starting sotalol to help control his frequent PVCs and bigeminy. He was initiated on sotalol and had 3 doses in the hospital while being monitored on telemetry, his QTc was 480 with a third dose and he is having much less frequent PVCs/bigeminy. He did periodically have complaints of pain or abnormal sensations in his chest that went up around the left side of his neck to the back of his head and forehead area as well as a tremor that affected his right arm. The symptoms were resolved with oral Ativan, it is likely some of his symptoms are related to anxiety and he will be prescribed a limited supply of Ativan. He was also counseled to follow-up with his primary care doctor and cardiology in 1 to 2 weeks Discontinue/stop taking your metoprolol Begin taking the sotalol 80 mg twice daily Ativan by mouth sent to pharmacy as well to take as needed for anxiety Continue your Diovan Diet: Regular Activity: Ad farnaz Followup: Melecio Muñoz MD [ACTIVE - CAN ADMIT] - 1-2 Weeks Liz Luevano [Primary Care Provider] - 1-2 Weeks Time spent managing pt's care (in minutes): 43
--- NOTE | 2024-04-06 12:23 | EKG ---
Test Date: 2024-04-03 Test Time: 09:24:28 Jig Builder Helper: SHIVAM MEASUREMENT RESULTS: Intervals: Rate: 62 [place]: 204 QRSD: 100 QT: 474 QTc: 481 [place]: P: 85 [place]: 204 QRS: 48 T: 22 INTERPRETIVE STATEMENTS: Normal sinus rhythm Incomplete right bundle branch block Cannot rule out Anterior infarct, age undetermined Abnormal ECG Compared to ECG 04/03/2024 06:49:28 Incomplete right bundle-branch block now present Myocardial infarct finding now present Electronically Signed On 04-06-24 12:18:12 PHOTOENGRAVING PHOTOGRAPHER by Melecio Muñoz
--- NOTE | 2024-04-06 12:23 | EKG ---
Test Date: 2024-04-03 Test Time: 06:49:28 Speech Writer: SHIVAM MEASUREMENT RESULTS: Intervals: Rate: 0 [place]: QRSD: 0 QT: 0 QTc: 0 [place]: P: [place]: QRS: 0 T: 0 INTERPRETIVE STATEMENTS: No QRS complexes found, no ECG analysis possible Compared to ECG 04/03/2024 06:48:26 Junctional rhythm no longer present Electronically Signed On 04-06-24 12:18:16 PUTTY REMOVER by Melecio Muñoz
--- NOTE | 2024-04-06 12:23 | EKG ---
Test Date: 2024-04-03 Test Time: 06:48:26 Ict Account Manager: SHIVAM MEASUREMENT RESULTS: Intervals: Rate: 53 [place]: QRSD: 102 QT: 494 QTc: 463 [place]: P: [place]: QRS: 30 T: 55 INTERPRETIVE STATEMENTS: Junctional rhythm Abnormal ECG Compared to ECG 04/01/2024 19:52:39 Junctional rhythm now present Sinus rhythm no longer present Ventricular premature complex(es) no longer present Electronically Signed On 04-06-24 12:18:51 DRIVER WHEELCHAIR by Melecio Muñoz
--- NOTE | 2024-04-06 12:31 | EKG ---
Test Date: 2024-04-01 Test Time: 19:52:39 Piercing Machine Operator: SHIVAM MEASUREMENT RESULTS: Intervals: Rate: 74 [place]: 182 QRSD: 92 QT: 418 QTc: 463 [place]: P: 35 [place]: 182 QRS: 33 T: 30 INTERPRETIVE STATEMENTS: Sinus rhythm with frequent premature ventricular complexes Otherwise normal ECG Compared to ECG 04/01/2024 06:53:17 Ventricular premature complex(es) now present Sinus bradycardia no longer present Electronically Signed On 04-06-24 12:21:20 STUDIO DATA ANALYST by Melecio Muñoz
--- NOTE | 2024-04-06 12:35 | EKG ---
Test Date: 2024-04-01 Test Time: 06:53:17 Customer Success Associate: OLINDA MEASUREMENT RESULTS: Intervals: Rate: 59 [place]: 204 QRSD: 98 QT: 456 QTc: 451 [place]: P: 83 [place]: 204 QRS: 18 T: 46 INTERPRETIVE STATEMENTS: Sinus bradycardia Otherwise normal ECG Compared to ECG 03/22/2024 05:19:14 Sinus rhythm no longer present Prolonged QT interval no longer present Electronically Signed On 04-06-24 12:22:53 SUPERVISOR KNITTING by Melecio Muñoz
== END 2024-04-03 12:57 | disposition home or self-care (01) | DRG 309 ==
LOC: ER 06:41 → ERHOLD 09:10 → 2ND 10:47 → OBSVTOIN 04-02 12:45
PROVIDERS: ADMIT Hospitalist; ATTEND Hospitalist
DX: I49.3 Ventricular premature depolarization (principal); Z68.41 Body mass index [BMI] 40.0-44.9, adult; E66.9 Obesity, unspecified; F41.9 Anxiety disorder, unspecified; F32.A Depression, unspecified; I11.0 Hypertensive heart disease with heart failure; I50.9 Heart failure, unspecified; K21.9 Gastro-esophageal reflux disease without esophagitis; Z88.5 Allergy status to narcotic agent; Z88.8 Allergy status to other drugs, medicaments and biological substances; Z90.49 Acquired absence of other specified parts of digestive tract; Z79.899 Other long term (current) drug therapy
CPT/HCPCS: 36415; 70450; 71045; 71275; 74175; 80048; 80076; 83690; 83735; 83880; 84100; 84443; 84484; 85025; 85610; 93005; 93880; 96365; 96375; 99285; G0378; J1650; J3475; Q9967